=== PATIENT | male | born 1975 | race Two or more races ===

== ENCOUNTER 2022-01-13 | Outpatient (REF) | payer OTHER, SELFPAY ==
[2022-01-17 12:21] LABS: H Pylori Breath Test Positive (Negative)
== END 2022-01-13 00:01 | disposition home or self-care (01) ==
LOC: HO.LNP
PROVIDERS: Visit Provider Physician Assistant Surgical
DX: E66.01 Morbid (severe) obesity due to excess calories (principal)
CPT/HCPCS: 83013

== ENCOUNTER → 2022-01-13 13:49 | Outpatient (BNVA) | payer OTHER, SELFPAY | PROVIDERS: PCP Internal Medicine; Visit Provider Physician Assistant Surgical | DX: Z11.0 Encounter for screening for intestinal infectious diseases (principal); E66.01 Morbid (severe) obesity due to excess calories; G47.33 Obstructive sleep apnea (adult) (pediatric); E11.9 Type 2 diabetes mellitus without complications; Z68.42 Body mass index [BMI] 45.0-49.9, adult | CPT/HCPCS: 99202; 99211 ==

== ENCOUNTER 2022-01-18 17:12 | Emergency (ER) | payer OTHER, SELFPAY ==
[2022-01-18 19:31] VITALS: BP 138/78; PULSE 90; RESP 22; TEMP 36.6; O2SAT 96; BMI 45.6
--- NOTE | 2022-01-18 19:39 | PC.NURSE ---
poc 269
[2022-01-18 19:43] LABS: Glucose, Whole Blood 269 mg/dL (60-115)
[2022-01-18 19:46] VITALS: BP 147/89; PULSE 89; RESP 20; TEMP 36.6; O2SAT 94
--- NOTE | 2022-01-18 19:53 | ED_ITS ---
HPI - Burn/Smoke Inhalation General Chief complaint: Burn/Smoke Inhalation Stated complaint: oil burn on left hand Time Seen by Provider: 01/18/22 19:53 Source: patient Mode of arrival: ambulatory Limitations: no limitations History of Present Illness HPI Narrative: 46-year-old right hand dominant male presents to the ER for evaluation of a burn to the back of his left hand. He comes from home and states he was cooking when hot oil splashed up on the back of his hand. There was immediate bubbling, pain and redness. Immediately washed the hand in cold water and then applied a lotion, he does not know the name of the lotion but it is white. He reports 6/10 pain at this time. MD Complaint: burn Onset (ago): hour(s) Type of Exposure: hot liquid Smoke Inhalation: none Place: home Location - Extremities: left: hand Severity: moderate Severity scale (1-10): 6 Associated symptoms: denies other symptoms Treatment Prior to Arrival: dressings Related Data Previous Rx's Medication Instructions Recorded ketoconazole 2 % topical cream 1 appl topical DAILY 30 days #30 01/15/22 grams metformin 850 mg tablet 850 mg PO DAILY 90 days #90 tabs 01/15/22 naproxen 500 mg tablet 500 mg PO BID PRN pain 15 days #30 01/15/22 tabs sennosides 8.6 mg-docusate sodium 2 tab-cap PO BEDTIME 30 days #60 01/15/22 50 mg tablet (Senna Plus) tabs Allergies Allergy/AdvReac Type Severity Reaction Status Date / Time No Known Allergies Allergy Verified 01/15/22 15:21 Review of Systems Review of Systems: Constitutional: No Fever, No Chills Cardiovascular: No Chest Pain, No SOB Gastrointestinal: No Nausea, No Vomiting Musculoskeletal: No joint pain, No Myalgias Skin: +Skin Lesions, No rash Neuro: No Weakness, No Numbness, No Dizziness, No Headache Psych: + Anxiety/Panic, No Depression Heme/Lymph: No Bruising, No Lymphadenopathy Endocrine: No Polyuria, No Polydipsia PMFSH Past Medical History Surgical History No pertinent past surgical history Family History Family History Mother Heart problem Hypertension Father No problems noted. Daughter No problems noted. Daughter No problems noted. Social History Social History Housing: Apartment Alcohol intake: current Alcohol intake frequency: holidays/special occasions only Patient Tobacco Use Status: Former Tobacco user Quit Date: 07/21 Tobacco use type: Cigarette Advance Directives: No Advance Directives Information Provided: No service: No Current occupational status: employed Cognitive needs: No Hearing needs: No Vision needs: No Physical Exam Vital Signs: Vital Signs: Last Vital Signs Temp 97.9 F 01/18/22 19:46 Pulse 89 01/18/22 19:46 Resp 20 01/18/22 19:46 BP 147/89 H 01/18/22 19:46 Pulse Ox 94 01/18/22 19:46 O2 Del Method 01/18/22 19:46 BMI result Body Mass Index 45.6 Appearance: Alert. Oriented X3. No acute distress. HEENT: normal inspection CVS: Normal heart rate and rhythm. Pulses normal. Respiratory: No respiratory distress. Skin: Skin warm and dry. Normal skin color. Normal skin turgor. No rashes. Extremities: dorsal aspect of the left hand with 5cm area of skin soughing, skin is gallego with pink, blanchable skin at the base. large blister over the thenar eminence and small blister on the pump of the thumb. cap feill <3 sec. BSA <1 %. normal ROM of all digits, normal thumb opposition. Neuro: Oriented X 3. No motor deficit. No sensory deficit. 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 Course Course Course Narrative: 46-year-old male with history diabetes presents to the ER for evaluation of barboza to his left hand after cooking pork in hot oil when the oil splashed onto his hand. The burn is not circumferential to the hand or finger. He has full range of motion. The skin was debrided and a dressing with bacitracin, nonstick, gauze was applied. Wound care was discussed. Will refer patient to plastic surgeon as well as wound center here. Patient agrees with plan. Stable for discharge home. MDM - Burn/Smoke Inhalation Lab Data Labs: Lab Results 01/18/22 Range/Units 19:38 POC Glucose 269 H (60-115) mg/dL Procedures Burn Care/Dressing LUE: Debridement Necessary: Yes Type of Dressing: Antibiotic Ointment, Dry Sterile and Non-Stick Neurovascular Functions Intact After Dressing Application: Yes Patient Tolerated Procedure: no complications Critical Care Time Critical Care Time Critical Care Time: No Discharge Plan Discharge Clinical Impression: Second degree burn of back of left hand Patient Disposition: Home, Self-Care Instructions: Second Degree Burn (ED) Additional Instructions: Change the dressing to your hand 1-2 times per day. Recommend using bacitracin each time you change the dressing. This could be found over the counter. Use a nonstick dressing over top of the bacitracin and wrapped in gauze to keep clean and covered. Recommend following up with the wound care center as well as a plastic surgeon for follow-up. Take Motrin and Tylenol as needed for pain. Elevate your hand if you have throbbing or pain. If you develop new or worsening symptoms call 911 or come back to the ER for further evaluation. Prescriptions: No Action sennosides-docusate sodium [Senna Plus] 8.6-50 mg tablet 2 tab-cap PO BEDTIME 30 Days Qty: 60 1RF naproxen 500 mg tablet 500 mg PO BID PRN (Reason: pain) 15 Days Qty: 30 1RF ketoconazole 2 % cream 1 appl topical DAILY 30 Days Qty: 30 1RF metformin 850 mg tablet 850 mg PO DAILY 90 Days Qty: 90 1RF Referrals: [facility] [place] [facility] [Outside] (2nd degree burn on the hand) Jarrell Sol MD [Physician] - (2nd degree hand burn) Stand Alone Forms: Work/School Release Print Language: Moroccan
[2022-01-18] MEDS: Diphth,Pertus(ACell),Tet Adult 0.5 ML SYRINGE IM (20:25)
== END 2022-01-18 20:43 | disposition home or self-care (01) ==
PROVIDERS: Emergency Provider Emergency Medicine
DX: T23.262A Burn of second degree of back of left hand, initial encounter (principal); T31.0 Burns involving less than 10% of body surface; X10.2XXA Contact with fats and cooking oils, initial encounter; Y93.G3 Activity, cooking and baking; Y92.000 Kitchen of unspecified non-institutional (private) residence as the place of occurrence of the external cause; Y99.9 Unspecified external cause status
CPT/HCPCS: 16020; 82947; 90471; 90715; 99282; 99283

== ENCOUNTER → 2022-01-19 14:33 | Outpatient (REF) | payer OTHER, SELFPAY | LOC: HO.SL 14:33 | PROVIDERS: Visit Provider Physician Assistant Surgical | DX: G47.33 Obstructive sleep apnea (adult) (pediatric) (principal) | CPT/HCPCS: 95806 ==

== ENCOUNTER 2022-01-24 08:04 | Outpatient (REF) | payer OTHER, SELFPAY ==
[2022-01-24 08:28] LABS: MANUAL DIFF FLAG NO
[2022-01-24 09:14] LABS: Basophils Absolute Auto 0.1 X10*3/uL (0.0-0.2); Basophils Percent Auto 0.6 % (0-2); Eosinophils Absolute Auto 0.2 X10*3/uL (0.0-0.4); Eosinophils Percent Auto 2.5 % (0-4); Hemoglobin 14.3 g/dl (14.0-18.0); Imm Gran Abs Auto 0.08 X10*3/uL (0.00-0.03); Mean Corpuscular HGB Conc 32.5 g/dl (31.0-36.0); Mean Corpuscular Hemoglobin 28.9 pg (27.0-33.0); Mean Corpuscular Volume 89.1 fL (80.0-98.0); Mean Platelet Volume 11.7 fL (9.4-12.4); Monocytes Absolute Auto 0.6 X10*3/uL (0.1-1.2); Monocytes Percent Auto 6.7 % (2-11); Neutrophils Absolute Auto 4.4 x10*3/uL (2.0-8.3); Neutrophils Percent Auto 53.2 % (45-73); Platelet Count 259 X10*3/uL (160-400); Red Blood Count 4.94 X10*6/uL (4.60-5.80); White Blood Count 8.3 X10*3/uL (4.8-10.8)
[2022-01-24 09:51] LABS: Estimated Average Glucose 303 mg/dL; Hemoglobin A1c % 12.2 %
[2022-01-24 09:52] LABS: Alanine Aminotransferase 46 U/L (0-40); Alkaline Phosphatase 75 U/L (39-117); Anion Gap 16 (12-20); Aspartate Amino Transferase 17 U/L (5-37); Bilirubin Total 0.4 mg/dL (0.0-1.0); Blood Urea Nitrogen 10 mg/dL (9-16); C Reactive Protein 0.49 mg/dL (< or = 0.50); Calcium 8.8 mg/dL (8.4-10.2); Carbon Dioxide 23 mmol/L (22-29); Chloride 104 mmol/L (96-108); Cholesterol 249 mg/dL; Estimated Glomerular Filt Rate > 60; Glucose Random 275 mg/dL (60-115); HDL Cholesterol 41 mg/dL; Iron 61 mcg/dL (45-160); LDL Cholesterol Calculated 171 mg/dl; Percent Iron Saturation 18 % (15-50); Potassium 4.5 mmol/L (3.3-5.1); Sodium 138 mmol/L (135-145); Total Iron Binding Capacity 342 mcg/dL (228-428); Total Protein 6.9 g/dL (6.5-8.0); Triglycerides 187 mg/dL; Unsaturated Iron Binding 281 ug/dL
[2022-01-24 10:14] LABS: Folate 10.6 ng/mL (> or = 4.0); Vitamin B12 325 pg/mL (200-900)
[2022-01-24 10:16] LABS: Ferritin 211 ng/mL (20-250); Insulin 17 uU/mL (2-29); TSH reflex Free T4 1.33 uIU/mL (0.32-4.0); Vitamin D 25-OH Total 16.7 ng/mL (>30)
[2022-01-27 12:13] LABS: Calcium (PTHI) 8.9 mg/dL (8.6-10.3); PTHI 89 pg/mL (16-77)
[2022-01-27 13:33] LABS: Zinc 71 mcg/dL (60-130)
[2022-01-27 19:17] LABS: Vitamin A 41 mcg/dL (38-98)
[2022-01-30 06:10] LABS: Vitamin B1 11 nmol/L (8-30)
== END 2022-01-24 08:05 | disposition home or self-care (01) ==
LOC: HO.LAB 08:04
PROVIDERS: PCP Physician Assistant; Visit Provider Physician Assistant Surgical
DX: E66.01 Morbid (severe) obesity due to excess calories (principal)
CPT/HCPCS: 36415; 80053; 80061; 82306; 82607; 82728; 82746; 83036; 83525; 83540; 83970; 84425; 84443; 84590; 84630; 85025; 86140

== ENCOUNTER → 2022-02-13 13:08 | Outpatient (BNVA) | payer OTHER, SELFPAY | PROVIDERS: PCP Physician Assistant; Visit Provider Dietitian, Registered | DX: E66.01 Morbid (severe) obesity due to excess calories (principal) | CPT/HCPCS: 97802 ==

== ENCOUNTER 2022-02-19 10:47 | Emergency (ER) | payer OTHER, SELFPAY ==
--- NOTE | ~2022-02-19 | XR_ITS ---
EXAMINATION: XR CHEST CLINICAL INFORMATION: Cough COMPARISON: None TECHNIQUE: 2 views of the chest were obtained. FINDINGS: Allowing for hypoinflation, no significant abnormality is noted involving the heart, lungs, mediastinum, bony thorax or soft tissues. XR/XR chest 2V IMPRESSION: Unremarkable examination.
[2022-02-19 11:20] VITALS: BP 133/85; PULSE 87; RESP 18; TEMP 37.4; O2SAT 96; BMI 45.6
[2022-02-19 11:57] LABS: COVID-19 Test Positive (Negative); IDNOW Serial# 16C4AD1C
--- NOTE | 2022-02-19 14:08 | ED_ITS ---
HPI - URI/Sore Throat General Chief Complaint: Upper Respiratory Symptoms Stated Complaint: Cough Fever Time Seen by Provider: 02/19/22 13:36 Source: patient Mode of arrival: ambulatory Limitations: no limitations History of Present Illness HPI Narrative: Patient presents emergency department for evaluation of upper respiratory symptoms. He has been experiencing a cough, congestion, body aches, and low- grade fever since yesterday. Denies any known sick contacts. Denies shaking chills, chest pain, palpitations, shortness of breath, difficulty breathing, nausea, vomiting, abdominal pain, dysuria, numbness or tingling to the extremities. He does report having COVID vaccine x2, does not recall which she received. He also states that he has had COVID-19 infection in the past. Related Data Previous Rx's Medication Instructions Recorded ketoconazole 2 % topical cream 1 appl topical DAILY 30 days #30 01/15/22 grams naproxen 500 mg tablet 500 mg PO BID PRN pain 15 days #30 01/15/22 tabs sennosides 8.6 mg-docusate sodium 2 tab-cap PO BEDTIME 30 days #60 01/15/22 50 mg tablet (Senna Plus) tabs amoxicillin 500 mg capsule 1,000 mg PO Q12H 14 days #56 caps 01/19/22 clarithromycin 500 mg tablet 500 mg PO Q12H 14 days #28 tabs 01/19/22 omeprazole 20 mg capsule,delayed 20 mg PO DAILY #30 caps 01/21/22 release cholecalciferol (vitamin D3) 125 125 mcg PO DAILY #30 caps 01/26/22 mcg (5,000 unit) capsule metformin 1,000 mg tablet 1,000 mg PO BID 30 days #60 tabs 01/28/22 nirmatrelvir 300 mg (150 mg See Rx Instructions PO .COMPLEX 02/19/22 x2)-ritonavir 100 mg tablet,dose #30 ea pack(EUA) (Paxlovid) Allergies Allergy/AdvReac Type Severity Reaction Status Date / Time No Known Allergies Allergy Verified 01/15/22 15:21 Review of Systems Review of Systems: Constitutional: Positive fever. No chills. No weakness. Positive fatigue. ENT/ Mouth: No Ear Pain, positive Nasal Congestion, no sore throat, No Rhinorrhea, No Swallowing Difficulty Skin: No rash or itching. Cardiovascular: No chest pain. No palpitations. Respiratory: No shortness of breath. Positive cough. Positive sputum pr oduction. Gastrointestinal: No nausea. No vomiting. No diarrhea. No abdominal pain. Genitourinary: No burning micturition. No urinary frequency. Neurologic: No headache. No dizziness. No syncope. No numbness or tingling in the extremities. Musculoskeletal: No muscle pain. No back pain. No joint pain or stiffness. Yes all other systems are reviewed and are negative PMFSH Past Medical History Attestation statement: The following information was validated with the patient. Source: old records reviewed Surgical History No pertinent past surgical history Family History Family History Mother Heart problem Hypertension Father No problems noted. Daughter No problems noted. Daughter No problems noted. Social History Social History Housing: Apartment Alcohol intake: current Alcohol intake frequency: holidays/special occasions only Patient Tobacco Use Status: Former Tobacco user Quit Date: 07/21 Tobacco use type: Cigarette Advance Directives: Yes Advance Directives Information Provided: Yes Advance Directives on File: No service: No Current occupational status: employed Cognitive needs: No Hearing needs: No Vision needs: No Physical Exam Vital Signs: Vital Signs: Last Vital Signs Temp 99.3 F 02/19/22 11:20 Pulse 87 02/19/22 11:20 Resp 18 02/19/22 11:20 BP 133/85 02/19/22 11:20 Pulse Ox 96 02/19/22 11:20 O2 Del Method 02/19/22 11:20 BMI result Body Mass Index 45.6 Vital signs have been reviewed as normal and appeared to be correct. Blood pressure normal.? Heart rate normal.? Respiration rate normal. Temperature normal.? Oxygen saturation normal. Appearance: Alert.?Oriented to person, place and time. No acute distress.?Normal affect. Eyes: Pupils equal, round and reactive to light.? ENT: TM normal bilaterally. Pharynx normal.?? Neck: Normal inspection.? Neck supple.??No cervical adenopathy CVS: Heart sounds normal. Normal heart rate and rhythm.? Pulses normal.?? Respiratory: No respiratory distress.? Lung sounds clear to auscultation bilaterally, diminished at the bases?? Abdomen: Soft and non-tender. Normoactive bowel sounds. Skin: Skin warm and dry.? Normal skin color.? ? Extremities: No lower extremity edema.? Neuro: Moves all extremities spontaneously. Sensation intact bilaterally. No motor deficits. Ambulates with normal steady gait. Course Course Course Narrative: Patient is a 46-year-old male with a past medical history of diabetes, hypercholesterolemia, obesity, obstructive sleep apnea, presenting for evaluation of upper respiratory symptoms. COVID-19 testing is positive. At this time history and physical exam not consistent with ACS/PE. Chest x-ray reveals no acute cardiopulmonary abnormalities, not consistent with pneumonia. Well- appearing, nontoxic, afebrile, no tachycardia or tachypnea/hypoxia. Speaking clear full sentences, ambulatory with steady gait. Discussed conservative treatment including rest, hydration, Tylenol/ibuprofen as needed for fever and body aches, saline nasal spray, humidifier, [id number] cold medication. Reviewed emergency use Paxlovid, patient would like to receive prescription, basic labs obtained prior, no acute abnormalities. Advised to follow-up with primary care provider within 5-7 days. discussed worrisome signs and symptoms to return back to the emergency department. All questions were answered. Patient discharged home in stable condition. Provided with a return to work/school note. MDM - URI/Sore Throat Medical Records Attestation: I reviewed the patient's medical records. Lab Data Attestation: I reviewed the patient's lab results. Result diagrams: 02/19/22 14:20 02/19/22 14:20 Labs: Lab Results 02/19/22 02/19/22 02/19/22 Range/Units 11:26 14:20 14:20 WBC 5.4 (4.8-10.8) X10*3/uL RBC 5.35 (4.60-5.80) X10*6/uL Hgb 15.3 (14.0-18.0) g/dl Hct 47.2 (42.0-52.0) % MCV 88.2 (80.0-98.0) fL MCH 28.6 (27.0-33.0) pg MCHC 32.4 (31.0-36.0) g/dl RDW 12.2 (11.0-16.0) % Plt Count 239 (160-400) X10*3/uL MPV 10.9 (9.4-12.4) fL Immature Gran % (Auto) 0.4 (0.0-0.4) % Neut % (Auto) 62.5 (45-73) % Lymph % (Auto) 23.2 (20-40) % [place] % (Auto) 12.7 H (2-11) % Eos % (Auto) 0.6 (0-4) % Baso % (Auto) 0.6 (0-2) % Lymph # (Auto) 1.2 (1.2-4.9) X10*3/uL [place] # (Auto) 0.7 (0.1-1.2) X10*3/uL Eos # (Auto) 0.0 (0.0-0.4) X10*3/uL Baso # (Auto) 0.0 (0.0-0.2) X10*3/uL Abs Immat Gran (auto) 0.02 (0.00-0.03) X10*3/uL Absolute Neuts (auto) 3.4 (2.0-8.3) x10*3/uL Absolute Nucleated RBC 0.000 (0.0-0.012) X10*3/uL Nucleated RBC % (auto) 0.0 (0.0-0.2) /100WBC Sodium 138 (135-145) mmol/L Potassium 4.4 (3.3-5.1) mmol/L Chloride 102 (96-108) mmol/L Carbon Dioxide 26 (22-29) mmol/L Anion Gap 14 (12-20) BUN 10 (9-16) mg/dL Creatinine 1.10 (0.5-1.4) mg/dL Estim Creat Clear Calc 116.8 Estimated GFR > 60 Random Glucose 313 H (60-115) mg/dL Calcium 9.5 D (8.4-10.2) mg/dL Total Bilirubin 0.5 (0.0-1.0) mg/dL AST 34 D (5-37) U/L ALT 63 H (0-40) U/L Alkaline Phosphatase 79 (39-117) U/L Total Protein 7.7 (6.5-8.0) g/dL Albumin 4.6 (3.5-5.0) g/dL COVID-19 (ANDRY) Positive A (Negative) COVID-19 Clin Com See Note Imaging Data Chest x-ray: Radiologist's impression: XR/XR chest 2V IMPRESSION: Unremarkable examination. Discharge Plan Discharge Clinical Impression: COVID-19 Patient Disposition: Home, Self-Care Instructions: COVID-19 (Coronavirus Disease 2019) (ED) Additional Instructions: Be sure to rest, stay well hydrated. Return to emergency department with any new or worsening symptoms or concerns You can take ibuprofen 200 mg, 3 tablets (600mg) every 6-8 hours as needed for pain, in addition to Tylenol 500 mg, 2 tablets (1,000mg) every 4-6 hours as needed for pain, but not to exceed 3 doses daily (3,000mg).? You accepted treatment with Paxlovid under emergency use authorization, we discussed possible side effects, and complications. Please contact your primary care provider and arrange for a follow-up visit Prescriptions: New Paxlovid (EUA) 300 mg (150 mg x 2)-100 mg tablets,dose pack See Rx Instructions .ROUTE .COMPLEX Qty: 30 0RF Rx Instructions: take TWO 150 mg tablets of nirmatrelvir with ONE 100 mg tablet of ritonavir twice daily for 5 days No Action amoxicillin 500 mg capsule 1,000 mg PO Q12H 14 Days Qty: 56 0RF clarithromycin 500 mg tablet 500 mg PO Q12H 14 Days Qty: 28 0RF omeprazole 20 mg capsule,delayed release(DR/EC) 20 mg PO DAILY Qty: 30 0RF cholecalciferol (vitamin D3) 125 mcg (5,000 unit) capsule 125 mcg PO DAILY Qty: 30 3RF metformin 1,000 mg tablet 1,000 mg PO BID 30 Days Qty: 60 1RF sennosides-docusate sodium [Senna Plus] 8.6-50 mg tablet 2 tab-cap PO BEDTIME 30 Days Qty: 60 1RF naproxen 500 mg tablet 500 mg PO BID PRN (Reason: pain) 15 Days Qty: 30 1RF ketoconazole 2 % cream 1 appl topical DAILY 30 Days Qty: 30 1RF Stand Alone Forms: Work/School Release Interventions: ED Discharge Assessment Last Done: 02/19/22 15:28 Discharge Date/Time: 02/19/22 15:28 Print Language: S[place]an
[2022-02-19 14:25] LABS: MANUAL DIFF FLAG NO
[2022-02-19 14:27] LABS: Basophils Percent Auto 0.6 % (0-2); Eosinophils Percent Auto 0.6 % (0-4); Hematocrit 47.2 % (42.0-52.0); Hemoglobin 15.3 g/dl (14.0-18.0); Imm Gran Abs Auto 0.02 X10*3/uL (0.00-0.03); Imm Gran Pct Auto 0.4 % (0.0-0.4); Lymphocytes Absolute Auto 1.2 X10*3/uL (1.2-4.9); Lymphocytes Percent Auto 23.2 % (20-40); Mean Corpuscular HGB Conc 32.4 g/dl (31.0-36.0); Mean Corpuscular Hemoglobin 28.6 pg (27.0-33.0); Mean Corpuscular Volume 88.2 fL (80.0-98.0); Mean Platelet Volume 10.9 fL (9.4-12.4); Monocytes Absolute Auto 0.7 X10*3/uL (0.1-1.2); Monocytes Percent Auto 12.7 % (2-11); Neutrophils Absolute Auto 3.4 x10*3/uL (2.0-8.3); Neutrophils Percent Auto 62.5 % (45-73); Platelet Count 239 X10*3/uL (160-400); Red Blood Count 5.35 X10*6/uL (4.60-5.80); Red Cell Distribution Width 12.2 % (11.0-16.0); White Blood Count 5.4 X10*3/uL (4.8-10.8)
[2022-02-19 14:45] LABS: Alanine Aminotransferase 63 U/L (0-40); Albumin Level 4.6 g/dL (3.5-5.0); Alkaline Phosphatase 79 U/L (39-117); Anion Gap 14 (12-20); Aspartate Amino Transferase 34 U/L (5-37); Bilirubin Total 0.5 mg/dL (0.0-1.0); Blood Urea Nitrogen 10 mg/dL (9-16); Calcium 9.5 mg/dL (8.4-10.2); Carbon Dioxide 26 mmol/L (22-29); Chloride 102 mmol/L (96-108); Creatinine Clr Calc Pharmacy 116.8; Estimated Glomerular Filt Rate > 60; Glucose Random 313 mg/dL (60-115); Potassium 4.4 mmol/L (3.3-5.1); Sodium 138 mmol/L (135-145); Total Protein 7.7 g/dL (6.5-8.0)
== END 2022-02-19 15:28 | disposition home or self-care (01) ==
PROVIDERS: Nurse Practitioner Family; Emergency Provider Emergency Medicine; PCP Physician Assistant
DX: U07.1 COVID-19 (principal); R05.9 Cough, unspecified; R50.9 Fever, unspecified; Z79.899 Other long term (current) drug therapy; Z87.891 Personal history of nicotine dependence
CPT/HCPCS: 36415; 71046; 80053; 85025; 87635; 99282; 99283

== ENCOUNTER 2022-03-05 09:19 | Outpatient (REF) | payer OTHER, SELFPAY ==
--- NOTE | ~2022-03-05 | XR_ITS ---
EXAMINATION: XR CHEST CLINICAL INFORMATION: Morbid/severe obesity due to excess calories COMPARISON: None TECHNIQUE: 2 views of the chest were obtained. FINDINGS: No significant abnormality is noted involving the heart, lungs, mediastinum, bony thorax or soft tissues. XR/XR chest 2V IMPRESSION: Unremarkable chest exam.
--- NOTE | ~2022-03-05 | XR_ITS ---
EXAMINATION: BILATERAL HAND. CLINICAL INFORMATION: Pain. COMPARISON: None TECHNIQUE: 3 views of each hand. FINDINGS: Left hand: There is no visible acute fracture, dislocation or subluxation. No bony erosive changes seen. The joint spaces are maintained normal. The soft tissues are normal. Right hand: There is no visible acute fracture, dislocation or subluxation. No bony erosive changes or spurring. The joint space is maintained throughout the right hand. The soft tissues are normal. XR/XR hand LT 2V IMPRESSION: Unremarkable bilateral hand exam.
--- NOTE | ~2022-03-05 | XR_ITS ---
EXAMINATION: BILATERAL HAND. CLINICAL INFORMATION: Pain. COMPARISON: None TECHNIQUE: 3 views of each hand. FINDINGS: Left hand: There is no visible acute fracture, dislocation or subluxation. No bony erosive changes seen. The joint spaces are maintained normal. The soft tissues are normal. Right hand: There is no visible acute fracture, dislocation or subluxation. No bony erosive changes or spurring. The joint space is maintained throughout the right hand. The soft tissues are normal. XR/XR hand RT 2V IMPRESSION: Unremarkable bilateral hand exam.
== END 2022-03-05 09:20 | disposition home or self-care (01) ==
LOC: HO.US 09:19
PROVIDERS: Visit Provider Physician Assistant Surgical
DX: Z01.818 Encounter for other preprocedural examination (principal); E66.01 Morbid (severe) obesity due to excess calories; M79.641 Pain in right hand; M79.642 Pain in left hand
CPT/HCPCS: 71046; 73120

== ENCOUNTER → 2022-04-29 10:05 | Outpatient (BNVA) | payer OTHER, SELFPAY | PROVIDERS: PCP Physician Assistant; Visit Provider Urology | DX: N48.1 Balanitis (principal); E11.65 Type 2 diabetes mellitus with hyperglycemia | CPT/HCPCS: 99202 ==

== ENCOUNTER 2022-06-01 | Outpatient (REF) | payer OTHER, SELFPAY | END 2022-06-01 00:01 | disposition home or self-care (01) | LOC: HO.LNP | PROVIDERS: Visit Provider Physician Assistant | DX: Z13.89 Encounter for screening for other disorder (principal) ==

== ENCOUNTER → 2022-09-02 09:45 | Outpatient (BNVA) | payer OTHER, SELFPAY | PROVIDERS: PCP Physician Assistant; Visit Provider Orthopaedic Surgery | DX: M65.332 Trigger finger, left middle finger (principal); R20.0 Anesthesia of skin; R20.2 Paresthesia of skin | CPT/HCPCS: 20600; 99202; J1100 ==

== ENCOUNTER → 2022-09-03 09:19 | Outpatient (BNVA) | payer OTHER, SELFPAY | PROVIDERS: PCP Physician Assistant; Visit Provider Dietitian, Registered | DX: E11.65 Type 2 diabetes mellitus with hyperglycemia (principal) | CPT/HCPCS: 97802 ==

== ENCOUNTER 2022-11-05 07:55 | Outpatient (REF) | payer OTHER, SELFPAY ==
--- NOTE | 2022-11-05 08:23 | EMG_ITS ---
Left median and ulnar motor and sensory studies were performed. Left radial sensory studies were performed and paraspinal muscles were tested with some limb muscles. IMPRESSION: 1. Chronic left mid cervical radiculopathy. 2. Mild to moderate left median neuropathy across carpal tunnel. MD LAILA Willis/KAHLIL / [id number]
== END 2022-11-05 07:56 | disposition home or self-care (01) ==
LOC: HO.NEURO 07:55
PROVIDERS: PCP Physician Assistant; Visit Provider Orthopaedic Surgery
DX: R20.0 Anesthesia of skin (principal); R20.2 Paresthesia of skin
CPT/HCPCS: 95886; 95909

== ENCOUNTER 2022-11-23 15:04 | Emergency (ER) | payer OTHER, SELFPAY ==
--- NOTE | ~2022-11-23 | XR_ITS ---
EXAMINATION: XR SHOULDER, LEFT CLINICAL INFORMATION: Pain with limited range of motion COMPARISON: None available. TECHNIQUE: Four views of the left shoulder. FINDINGS: No fracture or dislocation. Prominent hypertrophic degenerative change of the acromioclavicular joint. The glenohumeral joint is well aligned with joint space maintained. The visualized lung is clear. The visualized ribs are intact. XR/XR shoulder LT min 2V IMPRESSION: Prominent hypertrophic degenerative change of the acromioclavicular joint.
[2022-11-23 15:36] VITALS: BP 142/83; PULSE 77; RESP 16; TEMP 36.9; O2SAT 96; BMI 44.4
--- NOTE | 2022-11-23 15:36 | ED.EXTPRO ---
HPI - Extremity Problem General Chief complaint: Extremity Problem Stated complaint: left arm pain Time Seen by Provider: 11/23/22 16:03 Source: patient Mode of arrival: ambulatory Limitations: no limitations History of Present Illness HPI Narrative: Patient is a 47 year old assigned male at with a history of HTN presenting to the emergency department today with left shoulder pain. Patient states that over the last month he has had left shoulder pain. Patient denies any dizziness, lightheadedness, abdominal pain, nausea, vomiting, fever, chills, blurry vision, double vision, loss of vision, chest pain, difficulty breathing, shortness of breath, back pain, night sweats, pain with urination, increased urinary frequency, increased urinary urgency, blood in his urine or stool, syncope or a near syncopal episode, recent trauma or falls, bowel incontinence, bladder incontinence, bowel retention, bladder retention, or any other complaints at this time. MD Complaint: extremity pain Onset (ago): month(s) (1) Pain Consistency: intermittent Location: left and upper extremity Severity scale (1-10): 4 Quality: aching and dull Radiation: none Relieving factors: immobilization Exacerbating factors: range of motion Associated symptoms: denies other symptoms Related Data Home Medications Medication Instructions Recorded Confirmed omeprazole 20 mg capsule,delayed 20 mg PO DAILY 04/27/22 05/18/22 release Previous Rx's Medication Instructions Recorded ketoconazole 2 % topical cream 1 appl topical DAILY 30 days #30 01/15/22 grams cholecalciferol (vitamin D3) 125 125 mcg PO DAILY #30 caps 01/26/22 mcg (5,000 unit) capsule clotrimazole-betamethasone 1 1 appl topical BID 4 weeks #45 04/29/22 %-0.05 % topical cream grams sennosides 8.6 mg-docusate sodium 2 tab-cap PO BEDTIME 30 days #60 07/03/22 50 mg tablet (Senna Plus) tabs meloxicam 15 mg tablet 15 mg PO DAILY 30 days #30 tabs 07/24/22 insulin glargine 100 unit/mL (3 15 unit (0.15 mL) subcut QPM 30 08/27/22 mL) subcutaneous pen ( days #15 mL Solostar U-100 Insulin) pen needle, diabetic 32 gauge x #50 ea 10/11/22 (BD Ultra-Fine Carin Pen Needle) metformin 1,000 mg tablet 1,000 mg PO BID 30 days #60 tabs 11/12/22 lisinopril 5 mg tablet 5 mg PO DAILY 90 days #90 tabs 11/23/22 Allergies Allergy/AdvReac Type Severity Reaction Status Date / Time No Known Allergies Allergy Verified 09/02/22 10:07 Review of Systems Constitutional: Constitutional: Reports no additional constitutional complaints, Denies chills, Denies fever(s) and Denies night sweats Eyes: Eyes: Reports no additional eye complaints, Denies blurry vision, Denies change in vision, Denies diplopia, Denies eye discharge, Denies loss of vision and Denies eye pain ENT: Denies dizziness Cardiovascular: Cardiovascular: Reports no additional cardiovascular complaints, Denies chest pain, Denies lightheadedness, Denies Loss of Consciousness and Denies dyspnea Respiratory: Respiratory: Reports no additional respiratory complaints and Denies dyspnea Gastrointestinal: Gastrointestinal: Reports no additional gastrointestinal complaints, Denies abdominal pain, Denies melena, Denies hematochezia, Denies change in bowel habits and Denies change in stool character Genitourinary: Genitourinary: Reports no additional male genitourinary complaints, Denies hematuria, Denies oliguria, Denies difficulty urinating, Denies dysuria, Denies urinary frequency, Denies urinary hesitancy, Denies urinary incontinence and Denies urinary urgency Musculoskeletal: Musculoskeletal: Reports no additional musculoskeletal complaints, Denies numbness and Denies tingling Comments: left shoulder pain Neurologic: Denies dizziness, Denies loss of vision, Denies numbness and Denies tingling Psychiatric: Psychiatric: Reports no additional psychiatric complaints Endocrine: Endocrine: Reports no additional endocrine complaints Hematologic/Lymphatic: Hematologic/Lymphatic: Reports no additional hematologic/lymphatic complaints Allergic/Immunologic: Allergic/Immunologic: Reports no additional allergic/immunologic complaints [facility] Past Medical History Attestation statement: The following information was validated with the patient. Source: old records reviewed and nursing notes reviewed Medical History Acid reflux Hx of diabetes mellitus Surgical History No pertinent past surgical history Family History Family History Mother Heart problem Hypertension Father No problems noted. Daughter No problems noted. Daughter No problems noted. 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 Cognitive needs: No Hearing needs: No Vision needs: No Physical Exam Vital Signs: Vital Signs: Last Vital Signs Temp 98.4 F 11/23/22 15:36 Pulse 77 11/23/22 15:36 Resp 16 11/23/22 15:36 BP 142/83 H 11/23/22 15:36 Pulse Ox 96 11/23/22 15:36 O2 Del Method Room Air 11/23/22 15:36 BMI result Body Mass Index 44.4 Const: General: cooperative, no acute distress, alert and awake Nutritional Appearance: well nourished Orientation/consciousness: patient oriented x3 Limitations: no limitations HEENT: Head: Yes normal to inspection and Yes atraumatic Ears: hearing grossly normal bilaterally and external ears normal General nose exam: Normal external nose present, no nasal discharge noted and no epistaxis Face and sinus: Yes normal facial exam, No abrasion and No laceration Mouth: Normal oral and palatal mucosa present, no drooling and no muffled voice Eyes: General: appearance normal, both eyes and all related structures Periorbital: periorbital findings normal Eyelids: Yes eyelids normal Conjunctivae: conjunctivae normal Pupils: Equal, round and reactive pupils present EOM: EOMs intact bilaterally Neck: Neck: Yes normal visual inspection, Yes full ROM and Yes no lymphadenopathy Chest: Chest palpation & inspection: normal inspection of the chest Resp: Effort & Inspection: normal respiratory effort and able to speak in complete sentences GI: Inspection: Yes normal to inspection Neuro: General: patient oriented x3 and moves all extremities Cranial nerves: Yes Equal, round and reactive pupils present Cognition (Neuro): normal cognition Motor exam (neuro): 5/5 motor strength present throughout Sensory Exam: Normal double simultaneous stimulation for sensation Coordination: [id number] test normal Extrem: Other: pain with palpation of the left AC joint General: Yes normal to inspection, Yes full ROM and Yes capillary refill normal Psych: Appearance: grossly normal Mental Status: mental status grossly normal Affect: normal affect Attitude: cooperative Thought process: Normal thought process present Thought content: Normal thought content present Insight: Good insight present (Psych) Course Course Course Narrative: RME - 47 yo Mosotho speaking male with history of obesity, DM, HLD, trigger finger left middle finger s/p steroid injection by Dr. Marie in August who presents to the ER for evaluation of new, nontraumatic left shoulder pain for the last 1 month with limited ROM. Causing difficulty sleeping. Questioning if it is related to the nerve issues of the finger. Has nerve conduction study November 05 showin. Chronic left mid cervical radiculopathy. 2. Mild to moderate left median neuropathy across carpal tunnel. Has appointment December 15 w/ Dr. Marie for follow up. Plan: XR shoulder Medical Decision Making Medical Decision Making [facility] Narrative: Patient is a 47 year old assigned male at with a history of HTN presenting to the emergency department today with left shoulder pain. Patient's physical exam showed pain with palpation of the left AC joint. Patient's left shoulder x-ray showed prominent hyperterophic degenerative change of the AC joint. I explained my physical exam findings as well as all test results to the patient. I answered all questions asked by the patient. Patient requested to have his arm in a sling. Patient's left arm was placed in a sling, without incident. Patient's PMS was intact prior to and after sling placement. I stressed the importance of the patient continuing to regularly exercise his left shoulder to avoid a frozen shoulder. I stressed the importance of the patient taking his medication as prescribed. I stressed the importance of the patient following up with his primary care provider and an orthopedic provider. I stressed the importance of the patient returning to the emergency department immediately if his symptoms were to worsen or if he were to develop any dizziness, shortness of breath, difficulty breathing, chest pain, blurry vision, loss of vision, nausea, vomiting, abdominal pain, fever, chills, back pain, or any other complaints. Patient verbalized agreement and understanding with this treatment plan and discharge. Differential Diagnosis Differential Diagnoses: The differential diagnosis associated with the presentation includes Left shoulder pain Rotator cuff injury AC joint sprain AC joint pain AC joint strain Independent Interpretation I performed an independent interpretation of an: Plain X-Ray Interpretation: My interpretation is in agreement with the radiologist's impression of this imaging study. EXAMINATION: XR SHOULDER, LEFT CLINICAL INFORMATION: Pain with limited range of motion? COMPARISON: None available.? TECHNIQUE: Four views of the left shoulder. FINDINGS: No fracture or dislocation. Prominent hypertrophic degenerative change of the acromioclavicular joint. The glenohumeral joint is well aligned with joint space maintained. The visualized lung is clear. The visualized ribs are intact.? XR/XR shoulder LT min 2V IMPRESSION: Prominent hypertrophic degenerative change of the acromioclavicular joint. Dictated By: Tavares Romero MD Signed By: Electronically signed by Tavares Romero MD 11/23/22 [id number] Radiology Impression Discussion of test interpretation with radiology: I have reviewed the radiologist's reading. Chronic Conditions Patient?s care impacted by: Hypertension Procedures Orthopedic Splinting/Casting Injury #1: Side: left Upper Extremity Injury Location: shoulder Upper Extremity Immobilizer: sling/shoulder immobilizer Discharge Plan Discharge Clinical Impression: Acromioclavicular (joint) (ligament) sprain Patient Disposition: Home, Self-Care Instructions: Shoulder Sprain (ED) Additional Instructions: Follow up with your primary care provider and an orthopedic provider. Return to the emergency department immediately if your symptoms worsen or if you develop any dizziness, shortness of breath, difficulty breathing, chest pain, blurry vision, loss of vision, nausea, vomiting, abdominal pain, fever, chills, back pain, or any other complaints. aga un seguimiento con mcneal proveedor de atenci?n primaria y un proveedor ortop?dico. Regrese al departamento de emergencias de inmediato si nyla s?ntomas empeoran o si presenta mareos, falta de aire, dificultad para respirar, dolor de pecho, visi?n borrosa, p?rdida de la visi?n, n?useas, v?mitos, dolor abdominal, fiebre, escalofr?os, dolor de espalda o cualquier otras quejas. Prescriptions: No Action cholecalciferol (vitamin D3) 125 mcg (5,000 unit) capsule 125 mcg PO DAILY Qty: 30 3RF sennosides-docusate sodium [Senna Plus] 8.6-50 mg tablet 2 tab-cap PO BEDTIME 30 Days Qty: 60 1RF meloxicam 15 mg tablet 15 mg PO DAILY 30 Days Qty: 30 1RF insulin glargine [Lantus Solostar U-100 Insulin] 100 unit/mL (3 mL) insulin pen 15 unit subcut QPM 30 Days Qty: 15 0RF (DME) pen needle, diabetic [BD Ultra-Fine Carin Pen Needle] 32 gauge x 5/32 needle See Rx Instructions .ROUTE .MEDSUPPLY Qty: 50 2RF Rx Instructions: As directed metformin 1,000 mg tablet 1,000 mg PO BID 30 Days Qty: 60 3RF lisinopril 5 mg tablet 5 mg PO DAILY 90 Days Qty: 90 1RF ketoconazole 2 % cream 1 appl topical DAILY 30 Days Qty: 30 1RF omeprazole 20 mg capsule,delayed release(DR/EC) 20 mg PO DAILY clotrimazole-betamethasone 1-0.05 % cream 1 appl topical BID 28 Days Qty: 45 0RF Rx Instructions: Apply thin coat 2 times per day Referrals: [facility] [Provider Group] (Call to establish and follow up with an orthopedic provider. Llame para establecer y hacer un seguimiento con un proveedor ortop?dico.) Lee Díaz PA-C [Primary Care Provider] - Print Language: Mosotho
== END 2022-11-23 18:04 | disposition home or self-care (01) ==
PROVIDERS: Emergency Provider Emergency Medicine; PCP Physician Assistant
DX: S43.52XA Sprain of left acromioclavicular joint, initial encounter (principal); X58.XXXA Exposure to other specified factors, initial encounter; Y93.9 Activity, unspecified; Y92.9 Unspecified place or not applicable; Y99.9 Unspecified external cause status
CPT/HCPCS: 73030; 99282; 99283

== ENCOUNTER 2022-12-15 09:23 | Outpatient (AMB) | payer OTHER, SELFPAY ==
--- NOTE | 2022-12-15 09:33 | A.OFFVIS_ITS ---
Intake Vital Signs 12/15/22 09:48 Height 5 ft 9 in Weight 301 lb BMI 44.4 Intake Visit Reasons: OV- LT MF s/p inj 08/2022/ EMG review Intake Note: Alfredito 47 yr old male who is right hand dominant presents today for his left hand middle finger trigger s/p injection from 09/02/22 and also for his EMG review. States injection did not help at all and is ready to discuss surgery for trigger release and CTS. Patient is diabetic, last A1C from 05/18/22 was 10.3. Patient is aware his sugars levels need to be better controlled. Allergies No Known Allergies Allergy (Verified 12/15/22 09:47) HPI OV- LT MF s/p inj 08/2022/ EMG review HPI Details Alfredito is a 47 year old right hand dominant Urdu speaking man, here with his , presenting S/P left middle trigger finger injection, and for a NCS review. He was last seen, and injected, on 09/02/22, which he says did not help him at all He continues to complain of painful locking and catching of the left middle finger, as well as numbness and tingling in his left ring and middle fingers every morning. 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 He is a Diabetic and says his last HgA1c was 10.3 on 05/18/22. He has been tryin [employer] to work on managing his sugars better. [facility] Medical History Acid reflux Hx of diabetes mellitus Surgical History No pertinent past surgical history Family History Mother Heart problem Hypertension Father No problems noted. Daughter No problems noted. Daughter No problems noted. 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 Normal sensation to the small finger No thenar or intrinsic wasting Good APB muscle belly firing and good finger cross Vascular: Cap refill brisk ROM: He can make a fist and extend all his digits Visible and palpable locking and catching of the middle finger Tender over the a1 tiffanie of the middle finger Nerve Conduction Study: IMPRESSION:? 1. Chronic left mid cervical radiculopathy. 2. Mild to moderate left median neuropathy across carpal tunnel. Juancarlos Edmonds MD 11/05/2022 Psych Appearance: grossly normal Affect: normal affect Attitude: cooperative Assessment & Plan Assessment & Plan (1) Trigger finger, left middle finger: Code(s): M65.332 - Trigger finger, left middle finger (2) Carpal tunnel syndrome of left wrist: Code(s): G56.02 - Carpal tunnel syndrome, left upper limb (3) Left cervical radiculopathy: Code(s): M54.12 - Radiculopathy, cervical region Plan Assessment & Plan: 1. Left middle trigger finger, S/P injection Date of Injection: 09/02/22 The patient continues to have locking and catching of the middle finger 2. Left carpal tunnel syndrome, mild-moderate With dense numbness, including the ring finger. Normal sensation to the small finger Possible double crush syndrome I educated him about these conditions I discussed treatment options The patient would like to proceed with surgery The risks and benefits of operative treatment were discussed with the patient and the patient wishes to proceed with surgery. These risks include, but are not limited to risk of damage to blood vessels, nerves, tendons, infection, recurrence, incomplete relief of preoperative symptoms, persistent pain, possible need for further surgery and the risks associated with regional blocks and anesthesia. The plan is to take the patient to the operating room sometime in the next few weeks for the following procedures: 1. Left carpal tunnel release, under local 2. Left middle finger trigger release, under local All of the preoperative paperwork including the consent was filled out today. All the patient's questions were answered. The patient understands that they will be contacted by our clinic scheduler soon to schedule this procedure He denies blood thinners, asthma, heart, lung, kidney issues He is a Diabetic and says his most recent HgA1c was 10.3 on 05/18/22. He will need an updated HgA1c to be <8.0% before we can proceed with surgery. 3. Left-sided mid cervical radiculopathy Seen on NCS I referred him to our colleagues in Pain Management for further assessment. Scribed for Hailee Marie MD by Jamie Reveles, center medical and lab director, on 12/15/22 at 9:55 AM, EST. Orders: Referrals Pain Management Referral M54.12 - Radiculopathy, cervical region Coding Level of Care Code Est Pt Level 4 (72397) Diagnoses Trigger finger, left middle finger M65.332 Carpal tunnel syndrome of left wrist G56.02 Left cervical radiculopathy M54.12
[2022-12-15 09:48] VITALS: BMI 44.4
== END 2022-12-15 10:03 | disposition home or self-care (01) ==
PROVIDERS: PCP Physician Assistant; Visit Provider Orthopaedic Surgery
DX: M65.332 Trigger finger, left middle finger (principal); G56.02 Carpal tunnel syndrome, left upper limb; M54.12 Radiculopathy, cervical region
CPT/HCPCS: 99214

== ENCOUNTER → 2022-12-15 09:23 | Outpatient (BNVA) | payer OTHER, SELFPAY | PROVIDERS: PCP Physician Assistant; Visit Provider Orthopaedic Surgery | DX: M65.332 Trigger finger, left middle finger (principal); M54.12 Radiculopathy, cervical region; G56.02 Carpal tunnel syndrome, left upper limb | CPT/HCPCS: 99212 ==

== ENCOUNTER 2022-12-16 10:47 | Outpatient (AMB) | payer OTHER, SELFPAY ==
--- NOTE | 2022-12-16 10:57 | A.OFFVIS_ITS ---
Intake Vital Signs 12/16/22 11:04 Height 5 ft 9 in Weight 308 lb 8 oz BMI 45.6 BP 135/77 Blood Pressure Location Rt brachial Position Sitting Pulse 73 Pulse Source Pulse Oximeter Pulse Oximetry (%) 95 Oxygen Delivery Method Room Air Intake Visit Reasons: CERVICAL RADICULOPATHY Intake Note: Pt here as a [employer], referral from ortho for L sided neck/shoulder pain x 6 months. Pain rating today 4-5/10 on pain scale. Pt states no PT, NSAIDS, or muscle re laxers taken Allergies No Known Allergies Allergy (Verified 12/16/22 11:04) Medication List - Last Reconciled 12/16/22 by Alem Gallagher, RN cholecalciferol (vitamin D3) 125 mcg PO DAILY clotrimazole-betamethasone 1-0.05 % 1 appl topical BID 4 weeks insulin glargine (Lantus Solostar U-100 Insulin) 15 units (0.15 mL) subcut QPM 30 days ketoconazole 2% 1 appl topical DAILY 30 days lisinopril 5 mg PO DAILY 90 days meloxicam 15 mg PO DAILY 30 days metformin 1,000 mg PO BID 30 days omeprazole 20 mg PO DAILY pen needle, diabetic (BD Ultra-Fine Carin Pen Needle) As directed sennosides-docusate sodium 8.6-50 mg (Senna Plus) 2 tab-caps (2 x 8.6-50 mg) PO BEDTIME 30 days HPI HPI Comments History of Present Illness Details Alfredito is a very pleasant 47-year-old male who presents to the office today for evaluation and management of left upper back pain. He was referred here after recent visit with Orthopedics where nerve conduction study was notable for chronic left mid cervical radiculopathy. Today patient reports that he is experiencing left shoulder, neck and upper back pain for the last 2 months. He states that he injured his shoulder at work by lifting without using proper body mechanics. He states that he tried to continue working despite having shoulder pain which then caused the left-sided neck and left upper back pain. Patient also reports pain in his left elbow and left hand, he is currently being treated by Dr. Marie in Orthopedics for pending carpal tunnel and trigger finger release surgeries. Today patient's main concern is his left upper back pain that he reports is constant worse at night and when he 1st wakes up in the morning. Pain currently is an 8/10 worse with movements and palpation. He states the pain is negatively impacting his ability to sleep, function normally and perform activities of daily living. Patient denies radiation or shooting pain down the arm. He denies left upper extremity weakness. Patient has not tried any tfzd-gjp-ypryehz medications including Tylenol or N SAIDs, he has not attended physical therapy, chiropractor, acupuncture, massage and has never had surgery or injections on his neck or back. Patient's past medical history is significant for diabetes with his most recent A1c 10.3 in April of 2022. He has been taking his insulin daily and his me tformin twice daily as prescribed routinely for the last 3 months. Prior to this he states that his blood sugar readings were in the 500s. Since being compliant with his medications his blood sugars have improved this morning his fasting glucose was 210. He has a scheduled follow-up appointment with his primary care doctor at the end of this month for recheck. [facility] Medical History Acid reflux Hx of diabetes mellitus Surgical History No pertinent past surgical history Family History Mother Heart problem Hypertension Father No problems noted. Daughter No problems noted. Daughter No problems noted. 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 Answers questions appropriately. Fully engaged in examination. Skin: warm, dry, intact without visible rashes or lesions. HEENT: Normocephalic. Conjuntivae clear without exudate. Sclera non-icteric. Hearing intact. Cardiac: External chest normal in appearance. Respiratory: No signs of trauma. No signs of respiratory distress. No cough, audible wheezing or stridor. Abdomen: without gross distension. MS: No obvious swelling or deformities. Able to transition from sit to stand unassisted. Ambulates with bilaterally normal heel strike and toe off Neurological: Oriented to person, place, time and situation. Thought process in tact. No gait abnormalities appreciated. Psychiatric: Appropriate mood and affect. Good judgment and insight. Back/Spine/Pelvis Other: Cervical Spine: Visible inspection without gross abnormality Moderate tenderness throughout right upper and middle trapezius muscles with noted tight bands Tender to palpation over paraspinal muscles and midline cervical vertebrae Full active ROM in all planes Spurling compression test negative. Elvey's tension test negative bilaterally Lhermitte's test negative. BUE strength 5/5 DTR symmetrical and intact bilaterally.? 2+ radial pulses.? Results Reviewed Results Reviewed: Assessment & Plan Assessment & Plan (1) Left cervical radiculopathy: Code(s): M54.12 - Radiculopathy, cervical region (2) Trapezius muscle strain: Code(s): S46.819A - Strain of other muscles, fascia and tendons at shoulder and upper arm level, unspecified arm, initial encounter Plan Alfredito is a very pleasant 47-year-old male who presented to the office today for evaluation and management of left mid cervical radiculopathy that was diagnosed on recent EMG. History physical exam and provocative testing today most consistent with left upper and middle trapezius strain being his current primary pain generator. Patient with some tenderness over cervical midline vertebrae imaging ordered, cervical spine with flexion extension. Patient has not trialed conservative treatment therefore we will initiate physical therapy eval and treat, order has been placed. Prescriptions for tizanidine 2 mg p.o. t.i.d. as needed for muscle spasticity, patient instructed on use no driving no drinking alcohol and no operating heavy machinery while taking. Patient reports he has not tried any nonsteroidal anti-inflammatory medication, prescription for diclofenac sodium 1% topical apply to affected area 4 times daily as needed for pain. Patient instructed on use. Avoid other prescription and sujf-ukw-nbykzga anti-inflammatory medication while using the diclofenac topical cream. Patient has recently been working to better control his blood sugars. He reports the last 3 months he has been taking his insulin at bedtime and metformin twice daily as prescribed. He is checking his sugars routinely and has a follow-up planned with his primary care doctor at the end of this month. Patient strongly advised to ensure he sees his primary care doctor as planned so he can have repeat blood work. For future interventional management options to be offered including steroid injections or neuromodulation his blood sugars w ould need to be better managed with A1c in acceptable range. All questions and concerns have been answered and patient agrees with the plan. Patient will follow up in the office after physical therapy, sooner if needed. Orders: Orders PT Evaluation and Treatment Today S46.813D - Strain of other muscles, fascia and tendons at shoulder and upper arm level, unspecified arm, initial encounter XR cervical spine w flex/ext Today M54.12 - Radiculopathy, cervical region Medications: New diclofenac sodium 1% (Arthritis Pain (diclofenac)) apply to right upper back as needed. do not take with meloxicam or other NSAIDS 4 grams topical QID 100 grams 0RF pain tizanidine do not drive, drink alcohol or operate heavy machinery while taking this medication 2 mg PO TID PRN 60 tabs 1RF muscle spasticity Coding Level of Care Code New Pt Level 4 (28011) Diagnoses Left cervical radiculopathy M54.12 Trapezius muscle strain S46.810C
[2022-12-16 11:04] VITALS: BP 135/77; PULSE 73; O2SAT 95; BMI 45.6
== END 2022-12-16 11:39 | disposition home or self-care (01) ==
PROVIDERS: PCP Physician Assistant; Visit Provider Registered Nurse Emergency
DX: M54.12 Radiculopathy, cervical region (principal); S46.819A Strain of other muscles, fascia and tendons at shoulder and upper arm level, unspecified arm, initial encounter
CPT/HCPCS: 99204

== ENCOUNTER → 2022-12-16 10:47 | Outpatient (BNVA) | payer OTHER, SELFPAY | PROVIDERS: PCP Physician Assistant; Visit Provider Registered Nurse Emergency | DX: M54.12 Radiculopathy, cervical region (principal); S46.812A Strain of other muscles, fascia and tendons at shoulder and upper arm level, left arm, initial encounter; X50.0XXA Overexertion from strenuous movement or load, initial encounter; Y93.9 Activity, unspecified; Y92.69 Other specified industrial and construction area as the place of occurrence of the external cause; Y99.8 Other external cause status | CPT/HCPCS: 99202 ==

== ENCOUNTER 2022-12-31 12:41 | Outpatient (AMB) | payer OTHER, SELFPAY ==
[2022-12-31 12:46] VITALS: BMI 45.5
--- NOTE | 2022-12-31 12:46 | MHC.OFFVIS ---
Intake Vital Signs 12/31/22 12:46 Height 5 ft 9 in Weight 308 lb BMI 45.5 Handedness Right Intake Visit Reasons: Newprob-Left shoulder pain Intake Note: Alfredito is a 47 year old right hand dominant male who presents today partner for a evaluation for his right shoulder pain. Patient reports ongoing pain for 3 months, he think it might be from lifting boxes at work. He states that his pain is worse in the morning. Patient reports his ROM limited. Pain is in the anterior aspect of the shoulder. He reports that his pain is worse when getting dressed. Allergies No Known Allergies Allergy (Verified 12/16/22 11:04) HPI Newprob-Left shoulder pain HPI Details 47-year-old right hand dominant male who presents in the office today for an evaluation of left shoulder pain. The patient reports chronic pain for 3 months. He states it might be from lifting boxes at work. He claims his pain is worse in the morning. He reports limited ROM. He states the pain is on the anterior aspect of the left shoulder, with an increase in pain when getting dressed. [facility] Medical History Acid reflux Hx of diabetes mellitus Surgical History No pertinent past surgical history Family History Mother Heart problem Hypertension Father No problems noted. Daughter No problems noted. Daughter No problems noted. 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 No ecchymosis, erythema, or edema. Full shoulder ROM in all planes. Positive cross-body reach. 4/5 strength with empty can. Negative drop arm. NVI. Assessment & Plan Assessment & Plan (1) Arthritis of left acromioclavicular joint: Code(s): M19.012 - Primary osteoarthritis, left shoulder (2) Painful arc syndrome of left shoulder: Code(s): M75.102 - Unspecified rotator cuff tear or rupture of left shoulder, not specified as traumatic (3) Diabetes: Code(s): E11.9 - Type 2 diabetes mellitus without complications Qualifiers: Diabetes mellitus complication status: with hyperglycemia Diabetes mellitus halfway insulin use: without training representative use Diabetes mellitus type: type 2 Qualified Code(s): E11.65 - Type 2 diabetes mellitus with hyperglycemia Plan Mr. Edmar Steele is a 47-year-old right hand dominant male who presents in the office today for an evaluation of left shoulder pain. The patient reports chronic pain for 3 months. He states it might be from lifting boxes at work. He claims his pain is worse in the morning. He reports limited ROM. He states the pain is on the anterior aspect of the left shoulder, with an increase in pain when getting dressed. I discussed the role of cortisone injections. However the patient?s glucose this morning was 240, therefore, we have agreed to defer at this time. He will be referred to physical therapy to work on ROM and strengthening. Follow up be in 6 weeks, or sooner if needed. X-rays of the left shoulder, obtained on 11/23/2022, revealed: Prominent hypertrophic degenerative change of the acromioclavicular joint. Patient Instructions: Scribed for Shoshana Vargas PA-C by Chiqui Villegas medical office representative, on 12/31/2022 at 1:06 pm, EST. Coding Level of Care Code New Pt Level 4 (85797) Diagnoses Arthritis of left acromioclavicular joint M19.012 Painful arc syndrome of left shoulder M75.102 Diabetes E11.65 Diabetes mellitus complication status: with hyperglycemia Diabetes mellitus halfway insulin use: without halfway use Diabetes mellitus type: type 2
== END 2022-12-31 13:53 | disposition home or self-care (01) ==
PROVIDERS: PCP Physician Assistant; Visit Provider Physician Assistant
DX: M19.012 Primary osteoarthritis, left shoulder (principal)
CPT/HCPCS: 99213

== ENCOUNTER → 2022-12-31 12:41 | Outpatient (BNVA) | payer OTHER, SELFPAY | PROVIDERS: PCP Physician Assistant; Visit Provider Physician Assistant ==

== ENCOUNTER → 2023-01-25 05:57 | Outpatient (REF) | payer OTHER, SELFPAY ==
--- NOTE | 2023-01-25 06:18 | ECG_ITS ---
Test Reason : htn Blood Pressure : / mmHG Vent. Rate : 068 BPM Atrial Rate : 068 BPM P-R Int : 174 ms QRS Dur : 106 ms QT Int : 378 ms P-R-T Axes : 022 -19 001 degrees QTc Int : 401 ms Normal sinus rhythm Minimal voltage criteria for LVH, may be normal variant ( R in aVL ) Borderline ECG No previous ECGs available Referred By: Lee Díaz Electronically Signed By:GM WADE
[2023-01-25 08:23] LABS: Hematocrit 44.1 % (42.0-52.0); Hemoglobin 14.1 g/dl (14.0-18.0); Mean Corpuscular Volume 90.6 fL (80.0-98.0); Mean Platelet Volume 11.8 fL (9.4-12.4); Platelet Count 280 X10*3/uL (160-400); Red Blood Count 4.87 X10*6/uL (4.60-5.80); White Blood Count 9.1 X10*3/uL (4.8-10.8)
[2023-01-25 08:25] LABS: Estimated Average Glucose 269 mg/dL
[2023-01-25 08:51] LABS: Alanine Aminotransferase 39 U/L (0-40); Albumin Level 4.1 g/dL (3.5-5.0); Alkaline Phosphatase 67 U/L (39-117); Anion Gap 12 (12-20); Aspartate Amino Transferase 17 U/L (5-37); Bilirubin Total 0.5 mg/dL (0.0-1.0); Blood Urea Nitrogen 17 mg/dL (9-16); Calcium 9.3 mg/dL (8.4-10.2); Carbon Dioxide 24 mmol/L (22-29); Chloride 105 mmol/L (96-108); Cholesterol 278 mg/dL (<200); Estimated Glomerular Filt Rate > 60; Glucose Fasting 248 mg/dL (60-99); HDL Cholesterol 42 mg/dL (>40); LDL Cholesterol Calculated 183 mg/dL (<100); Potassium 4.1 mmol/L (3.3-5.1); Sodium 137 mmol/L (135-145); Total Protein 7.3 g/dL (6.5-8.0); Triglycerides 265 mg/dL (<150)
== END ==
LOC: HO.CARD 05:57
PROVIDERS: PCP Physician Assistant; Visit Provider Physician Assistant
DX: Z01.818 Encounter for other preprocedural examination (principal); E11.65 Type 2 diabetes mellitus with hyperglycemia; G47.33 Obstructive sleep apnea (adult) (pediatric); I10 Essential (primary) hypertension; E78.00 Pure hypercholesterolemia, unspecified
CPT/HCPCS: 36415; 80053; 80061; 83036; 85027; 93005

== ENCOUNTER 2023-02-11 12:53 | Outpatient (AMB) | payer OTHER, SELFPAY ==
--- NOTE | 2023-02-11 13:10 | MHC.OFFVIS ---
Intake Vital Signs 02/11/23 13:18 Height 5 ft 9 in Weight 309 lb BMI 45.6 Intake Visit Reasons: ov- Left shoulder pain Intake Note: Alfredito 47 yr old male presents today for his follow up visit for his Painful arc syndrome of left shoulder. States he had his blood draw 2 weeks ago and his PCP increased his insulin dose. States his shoulder is the same but his wrist pain has increase. He has started P.T but feels no improvement. Allergies No Known Allergies Allergy (Verified 02/11/23 13:17) HPI ov- Left shoulder pain HPI Details 47-year-old right hand dominant male, who is Armenian speaking, presents in the office today for a follow up of left shoulder pain. The patient reports his shoulder pain is the same, but his wrist pain has increased. He confirms participating in physical therapy, but reports no improvement. He reports having blood work obtained 2 weeks ago (01/25/2023) and states his PCP increased his insulin dose. Lab work obtained on 01/25/2023: Fasting glucose 248 Hemoglobin A1c 11.0 [facility] Medical History Acid reflux Hx of diabetes mellitus Surgical History No pertinent past surgical history Family History Mother Heart problem Hypertension Father No problems noted. Daughter No problems noted. Daughter No problems noted. 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 No ecchymosis, erythema, or edema. Full shoulder ROM in all planes. Positive cross-body reach. 4/5 strength with empty can. Negative drop arm. NVI. Assessment & Plan Assessment & Plan (1) Arthritis of left acromioclavicular joint: Code(s): M19.012 - Primary osteoarthritis, left shoulder (2) Painful arc syndrome of left shoulder: Code(s): M75.102 - Unspecified rotator cuff tear or rupture of left shoulder, not specified as traumatic (3) Trigger finger, left middle finger: Code(s): M65.332 - Trigger finger, left middle finger (4) Diabetes: Code(s): E11.9 - Type 2 diabetes mellitus without complications Qualifiers: Diabetes mellitus complication status: with hyperglycemia Diabetes mellitus tank terminal gauger insulin use: without tank terminal gauger use Diabetes mellitus type: type 2 Qualified Code(s): E11.65 - Type 2 diabetes mellitus with hyperglycemia Plan Mr. Edmar Steele is a 47-year-old right hand dominant male, who is Armenian speaking, presents in the office today for a follow up of left shoulder pain. The patient reports his shoulder pain is the same, but his wrist pain has increased. He confirms participating in physical therapy, but reports no improvement. He reports having blood work obtained 2 weeks ago (01/25/2023) and states his PCP increased his insulin dose. Lab work obtained on 01/25/2023: Fasting glucose 248 Hemoglobin A1c 11.0 Left shoulder: I educated the patient that due to his lab work obtained on 01/25/2023 we will defer from the cortisone injection at this time. I would like for him to continue to work with physical therapy on ROM and strengthening of the left shoulder. Left hand middle trigger finger: I discussed the role of a left hand middle digit trigger finger release. However at this time due to his uncontrolled diabetes he is not a good surgical candidate. He demonstrates understanding. He is going to work on getting his diabetes under control before moving forward with treatment. He will call the office once his diabetes is under control and he is ready to move forward with treatment. Follow up for the left shoulder and the left hand will be PRN, or sooner if needed. Patient Instructions: Scribed for Shoshana Vargas PA-C by Chiqui Villegas, medical staffing coordinator, on 02/11/2023 at 1:00 pm, EST. Coding Level of Care Code Est Pt Level 3 (15391) Diagnoses Arthritis of left acromioclavicular joint M19.012 Painful arc syndrome of left shoulder M75.102 Trigger finger, left middle finger M65.332 Type 2 diabetes mellitus with hyperglycemia, without long-term current use of insulin E11.65 Diabetes mellitus complication status: with hyperglycemia Diabetes mellitus tank terminal gauger insulin use: without tank terminal gauger use Diabetes mellitus type: type 2
[2023-02-11 13:18] VITALS: BMI 45.6
== END 2023-02-11 13:30 | disposition home or self-care (01) ==
PROVIDERS: PCP Physician Assistant; Visit Provider Physician Assistant
DX: M19.012 Primary osteoarthritis, left shoulder (principal); M75.102 Unspecified rotator cuff tear or rupture of left shoulder, not specified as traumatic; M65.332 Trigger finger, left middle finger
CPT/HCPCS: 99213

== ENCOUNTER → 2023-02-11 12:53 | Outpatient (BNVA) | payer OTHER, SELFPAY | PROVIDERS: PCP Physician Assistant; Visit Provider Physician Assistant | DX: M19.012 Primary osteoarthritis, left shoulder (principal); M75.102 Unspecified rotator cuff tear or rupture of left shoulder, not specified as traumatic; M65.332 Trigger finger, left middle finger; E11.65 Type 2 diabetes mellitus with hyperglycemia | CPT/HCPCS: 99212 ==

== ENCOUNTER 2023-02-16 15:00 | Outpatient (RCR) | payer OTHER, SELFPAY ==
--- NOTE | 2023-01-29 15:27 | MHC.PT.EP ---
[facility] [place] [facility] [place] [facility] [place] Office [address] [phone] F: [phone] F: [phone] F: [phone] F: [phone] Physical Therapy Plan of Care Date of Evaluation: Date of Surgery: NA Diagnosis: L SHOULDER RC TEAR, , OA L SHLDER, PAINFUL ARC SYNDROME L SHLDER, ARTHRITIS L AC JT Assessment: Pt IS 47 YO M REFERRED TO PT FROM ORTHO WITH L AC JOINT ARTHRITIS, +MODIFIED IMPINGEMENT L SHLDER, WEAKNESS L RC WITH LIMITED ROM. SHOULD BENEFIT FROM PT TO ADDRESS THESE ISSUES. OF NOTE, HAS CTS/TRIGGER FINGER ALSO. WOULD BENEFIT FROM OT CONSULT. 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 INCREASED POSTURE AWARENESS AND AWARENESS SHLDER CARE 2. I HEP WITH DC EX PLAN 3. 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 INCREASED L SHLDER ROM 10 DEGREES ER AND ABD 2. DECREASED L SHLDER PAIN AT LEAST 50% WITH ADLS Treatment Plan: Modalities to reduce pain, spasms and effusion. Manual therapy to restore motion and function. Therapeutic exercise to improve strength and flexibility. Neuromuscular re-education for posture and balance. Therapeutic activities to return to functional activities of daily living. Electronically signed by: EDWINA ALMEIDA PT Please sign and return to therapist. Thank you for your referral.
--- NOTE | 2023-03-19 15:51 | MHC.PT.DC ---
[facility] [place] [facility] [place] [facility] [place] [facility] [address] Ivory Cisneros [address] [phone] F: [phone] F: [phone] F: [phone] F: [phone] Physical Therapy Discharge Report Diagnosis: L SHOULDER RC TEAR, , OA L SHLDER, PAINFUL ARC SYNDROME L SHLDER, ARTHRITIS L AC JT Date of Surgery: NA Date of Evaluation: 01/29/23 Date of Discharge: 03/19/23 Treatments to Date: 5 Cancellations to Date: No Shows to Date: Discharge Status: Patient Elected to Stop Discharge Summary: Pt LAST SEEN ON 02/16/23 (AFTER ORTHO APPT ON 02/11). AT TIME OF LAST APPT, Pt'S SHOULDER WAS SORE FROM NEEDING TO MOVE A COLLAPSED BED WAS TO LIMIT EXS REPS TO ALLOW FOR HEALING. Pt THEN NO SHOWED FURTHER APPTS Electronically signed by: EDWINA ALMEIDA PT Please sign and return to therapist. Thank you for your referral.
== END 2023-03-19 15:51 | disposition home or self-care (01) ==
LOC: HO.PT 15:00
PROVIDERS: PCP Physician Assistant; Visit Provider Physician Assistant
DX: M75.102 Unspecified rotator cuff tear or rupture of left shoulder, not specified as traumatic (principal); M19.012 Primary osteoarthritis, left shoulder
CPT/HCPCS: 97014; 97110; 97140; 97161; 97530

== ENCOUNTER 2023-02-26 13:16 | Outpatient (AMB) | payer OTHER, SELFPAY ==
--- NOTE | 2023-02-26 13:21 | A.OFFPC_ITS ---
Vital Signs 02/26/23 13:26 Height 5 ft 9 in Weight 315 lb 2 oz BMI 46.5 BP 130/80 Blood Pressure Location Lt brachial Position Sitting Pulse 75 Pulse Source Pulse Oximeter Pulse Oximetry (%) 98 Oxygen Delivery Method Room Air Intake Visit Reasons: Lt CTR/ MF TriggerRelease,r/s 01/28-needs PHQ-9 Intake Note: Patient is here for a Pre-op for Lt CTR/ Lt MF Trigger release scheduled with Hailee Silverman ([facility]) on unknown. 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 Name: John Information Interpreted: non-clinical & clinical Tours Hostess: Present Accompanied by: Spouse Allergies No Known Allergies Allergy (Verified 02/26/23 13:43) Medication List - Last Reconciled 02/26/23 by EDGAR Liriano atorvastatin 20 mg PO BEDTIME 90 days Brace,wrist (Wrist Brace - one) Left wrist brace sized to fit diclofenac sodium 1% (Arthritis Pain (diclofenac)) 4 grams topical QID insulin glargine (Lantus Solostar U-100 Insulin) 20 units (0.2 mL) subcut QPM 30 days lisinopril 5 mg PO DAILY 90 days meloxicam 15 mg PO DAILY 30 days metformin 1,000 mg PO BID 30 days pen needle, diabetic (BD Ultra-Fine Carin Pen Needle) As directed tizanidine 2 mg PO TID PRN Tobacco use date assessed: 02/26/23 Dental Screening Dental Screen Date: 02/26/23 Did you have a dental visit in the last 12 months?: Yes Did you have a dental problem in the last 6 months where you did not have access to dental care?: No Was dental information given to patient?: Patient has dentist HPI HPI Comments History of Present Illness Details 47-year-old male past medical history si gnificant for diabetes, hypercholesteremia, MIRIAM, hypertension. Patient of Fred Díaz, patient presents today for preop appointment. Preop appointment for trigger finger release, however patient's hemoglobin A1c in office today was 10.9% unable to clear patient to undergo surgery at this time until hemoglobin A1c below 8%. Patient presents today with his significant other which reports that occasionally he does forget to take his metformin or his Lantus at night. Patient requesting to be started on semaglutide weekly injections. Discussed with patient at length he will have to continue taking metformin a 1000 mg b.i.d., Lantus and can initiate semaglutide 0.25 mg weekly. In addition to following and strict diabetic diet and exercising to reduce BMI to lower his A1c. [facility] Medical History Acid reflux Hx of diabetes mellitus Surgical History No pertinent past surgical history Family History (Updated 02/26/23 @ 13:22 by ELMER Vergara) Mother Heart problem Hypertension Father No problems noted. Daughter No problems noted. Daughter No problems noted. 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 1. Little interest or pleasure in doing things: not at all 2. Feeling down, depressed, or hopeless: not at all 3. Trouble falling or staying asleep, or sleeping too much: not at all 4. Feeling tired or having little energy: not at all 5. Poor appetite or overeating: not at all 6. Feeling bad about yourself - or that you are a failure or have let yourself or your family down: not at all 7. Trouble concentrating on things, such as reading the newspaper or watching television: not at all 8. Moving or speaking so slowly that other people could have noticed. Or the opposite - being so fidgety or restless that you have been moving around a lot more than usual: not at all 9. Thoughts that you would be better off or of hurting yourself in some way: not at all Total score: 0 Depression Screening Interpretation: Negative Source: Developed by Drs. Saúl Galvin, Tyra Gonsalez, Farzad Veronica and colleagues, with an educational julia from [employer]. Thrive Questionnaire Date Thrive assessed: 02/26/23 I am a: Patient What is your living situation today?: I have a steady place to live Within the past 12 months, did the food you bought not last and you didn't have the money to get more?: Never true Within the past 12 months, did you worry whether your food would run out before you got money to buy more?: Never true Do you have trouble paying for medicines?: No Do you have trouble getting transportation to medical appointments?: No Do you have trouble paying your heating and electricity bill?: No Do you have trouble taking care of your child, family member or friend?: No Do you have trouble with day-to-day activities such as bathing, preparing meals, shopping, managing finances, etc.?: No Are you currently unemployed and looking for a job?: No Are you interested in more education?: No Currently or been in a relationship where the following occur: no concerns reported AUDIT C Alcohol Use Questionnaire (AUDIT-C) 1. How often do you have a drink containing alcohol?: Monthly or less 2. How many drinks containing alcohol do you have on a typical day when you are drinking?: 1 or 2 Total Score: 1 OMAR-7 AMB Questionnaire OMAR-7 Date OMAR - 7 assessed: 02/26/23 Feeling nervous, anxious, or on edge: 2 = More than half the days Not being able to stop or control worryin = Not at all Worrying too much about different things: 0 = Not at all Trouble relaxin = Several days Being so restless that it is hard to sit still: 1 = Several days Becoming easily annoyed or irritable: 2 = More than half the days Feeling afraid as if something awful might happen: 0 = Not at all Total OMAR-7 score (0-4 normal; 5-9 mild; 10-14 moderate; 15-21 severe): 6 Source: Developed by Drs. Saúl Galvin, Tyra Gonsalez, Farzad Veronica and colleagues, with an educational julia from [employer]. Review of Systems Const Denies chills, Denies fatigue, Denies fever(s) and Denies poor appetite Eyes Denies no additional complaints ENT Reports Normal hearing present Card Denies chest pain, Denies syncope, Denies rapid heart rate and Denies dyspnea Resp Denies cough and Denies dyspnea GI Denies change in stool character, Denies constipation, Denies diarrhea, Denies nausea and Denies vomiting Denies dysuria, Denies urinary frequency and Denies urinary urgency Neuro Reports Normal hearing present, Denies confusion and Denies syncope Psych Denies confusion Endo Denies fatigue Physical exam (Primary Care) Vital Signs: Last Vital Signs Pulse 75 02/26/23 13:26 BP 130/80 02/26/23 13:26 Pulse Ox 98 02/26/23 13:26 Oxygen Delivery Method Room Air 02/26/23 13:26 BMI result Body Mass Index 46.5 Tobacco/Smoking Status: Tobacco use Status Tobacco use date assessed 02/26/23 02/26/23 13:28 Patient Tobacco Use Status Former Tobacco user 02/26/23 13:28 Tobacco use type Cigarette 02/26/23 13:28 e-Cigarette/Vaping Use Never Used 02/26/23 13:28 PHQ-9: PHQ-9 Score PHQ-9: Total score 0 02/26/23 13:59 Depression Screening Interpretation: Negative Thrive Assessment: Date of Thrive Assessment Date Thrive assessed 02/26/23 02/26/23 13:28 Currently or been in a relationship where the following occur: no concerns reported Const General: No confusion Orientation/consciousness: No confusion HENMT Head: Yes normocephalic and Yes atraumatic Eyes Conjunctivae: conjunctivae normal Chest Chest palpation & inspection: normal inspection of the chest Resp Effort & Inspection: normal respiratory effort Auscultation: clear to auscultation bilaterally, no crackles, no rhonchi and no wheezes Cardio Rate: regular rate Rhythm: regular rhythm Heart sounds: S1 normal heart sound present and S2 normal heart sound present GI Inspection: Yes normal to inspection Neuro General: No confusion Cranial nerves: Yes Normal hearing present Extrem General: No edema Results AMB Hemoglobin A1c AMB Hemoglobin A1c 10.9 % Last Edit by ELMER Vergara on 02/26/23 13:5 1 Results Reviewed Results Reviewed: Laboratory Last Values Hgb A1c (Clinic) 10.9 % (4.0-6.0) H 02/26/23 13:44 Assessment and Plan Assessment & Plan (1) Diabetes: Code(s): E11.9 - Type 2 diabetes mellitus without complications Qualifiers: Diabetes mellitus complication status: with hyperglycemia Diabetes mellitus car rental service attendant insulin use: without car rental service attendant use Diabetes mellitus type: type 2 Qualified Code(s): E11.65 - Type 2 diabetes mellitus with hyperglycemia Plan: Continue on metformin a 1000 mg b.i.d., Lantus 20 units at bedtime and will initiate semaglutide 0.25 mg q.week Patient educated to decrease the amount of carbohydrate intake such as pasta, bread, rice and potatoes are all sugar in addition to the sweet stuff. Remember that fruits are good but they also have sugar.Hemoglobin A1c goal of less than 6.5% Patient reports that he was seen by diabetic safe and vault service mechanic x1 never was scheduled for follow-up. Will re-enter referral. (2) Pre-op evaluation: Code(s): Z01.818 - Encounter for other preprocedural examination Plan: Unable to clear for trigger finger surgery at this time until hemoglobin A1c less than 8% (3) HTN (hypertension): Code(s): I10 - Essential (primary) hypertension Qualifiers: Hypertension type: primary hypertension Qualified Code(s): I10 - Essential (primary) hypertension Plan: Continue on lisinopril 5 mg daily. Follow low-salt diet and exercise. Plan Follow-up in 3 months. Orders: Orders TSH reflex Free T4 3 Months Z13.29 - Encounter for screening for other suspected endocrine disorder Hemoglobin A1c 3 Months E11.9 - Type 2 diabetes mellitus without complications AMB Hemoglobin A1c Today E11.9 - Type 2 diabetes mellitus without complications Comprehensive [place]. Panel Fast 3 Months E11.9 - Type 2 diabetes mellitus without complications Complete Blood Count Auto Diff 3 Months Z13.0 - Encounter for screening for diseases of the blood and blood-forming organs and certain disorders involving the immune mechanism Lipid Panel 3 Months Z13.220 - Encounter for screening for lipoid disorders Microalbumin, Random (w Creat) 3 Months E11.9 - Type 2 diabetes mellitus without complications Referrals Endocrinology Referral E11.9 - Type 2 diabetes mellitus without complications Heel Seat Pounder Nutrition Referral E11.9 - Type 2 diabetes mellitus without complications Medications: New semaglutide 0.25 mg (0.368 mL) subcut QWEEK 3 mL 3RF Refilled metformin 1,000 mg PO BID 60 tabs 3RF 30 days E11.65 - Type 2 diabetes mellitus with hyperglycemia Coding Level of Care Code Est Pt Level 4 (27430) Diagnoses Type 2 diabetes mellitus with hyperglycemia, without long-term current use of insulin E11.65 Diabetes mellitus complication status: with hyperglycemia Diabetes mellitus longterm insulin use: without car rental service attendant use Diabetes mellitus type: type 2 Pre-op evaluation Z01.818 Primary hypertension I10 Hypertension type: primary hypertension
[2023-02-26 13:26] VITALS: BP 130/80; PULSE 75; O2SAT 98; BMI 46.5
== END 2023-02-26 13:57 | disposition home or self-care (01) ==
PROVIDERS: PCP Physician Assistant; Visit Provider Nurse Practitioner Family
DX: Z01.818 Encounter for other preprocedural examination (principal); G56.02 Carpal tunnel syndrome, left upper limb; E11.65 Type 2 diabetes mellitus with hyperglycemia; I10 Essential (primary) hypertension
CPT/HCPCS: 83036; 99214

== ENCOUNTER 2023-05-07 15:58 | Emergency (ER) | payer OTHER, SELFPAY ==
[2023-05-07 16:58] VITALS: BP 134/80; PULSE 81; RESP 16; TEMP 36; O2SAT 95; BMI 45.8
--- NOTE | 2023-05-07 17:00 | ED_ITS ---
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 Patient states that he had an episode of bright red blood in his stool today. Patient denies any dizziness, lightheadedness, abdominal pain, nausea, vomiting, fever, chills, blurry vision, double vision, loss of vision, chest pain, difficulty breathing, shortness of breath, back pain, night sweats, pain with urination, increased urinary frequency, increased urinary urgency, blood in his urine, syncope or a near syncopal episode, recent trauma or falls, bowel incontinence, bladder incontinence, bowel retention, bladder retention, or any other complaints at this time. Severity: mild Relieving factors: none Exacerbating factors: none Associated symptoms: denies other symptoms Treatments prior to arrival: none Related Data Previous Rx's Medication Instructions Recorded meloxicam 15 mg tablet 15 mg PO DAILY 30 days #30 tabs 07/24/22 lisinopril 5 mg tablet 5 mg PO DAILY 90 days #90 tabs 11/23/22 diclofenac sodium 1 % topical gel 4 g topical QID pain #100 grams 12/16/22 (Arthritis Pain (diclofenac)) tizanidine 2 mg tablet 2 mg PO TID PRN muscle spasticity 12/16/22 #60 tabs atorvastatin 20 mg tablet 20 mg PO BEDTIME 90 days #90 tabs 01/28/23 insulin glargine 100 unit/mL (3 20 unit (0.2 mL) subcut QPM 30 01/28/23 mL) subcutaneous pen (Lantus days #6 mL Solostar U-100 Insulin) pen needle, diabetic 32 gauge x #50 ea 01/31/23 (BD Ultra-Fine Carin Pen Needle) Brace,wrist (Wrist Brace - one) #1 ea 02/02/23 metformin 1,000 mg tablet 1,000 mg PO BID 30 days #60 tabs 02/26/23 semaglutide 0.25 mg or 0.5 mg (2 0.25 mg (0.368 mL) subcut QWEEK #3 02/26/23 mg/3 mL) subcutaneous pen injector mL Allergies Allergy/AdvReac Type Severity Reaction Status Date / Time No Known Allergies Allergy Verified 05/07/23 16:58 Review of Systems 2 Constitutional: Constitutional: Reports no additional constitutional complaints, Denies chills, Denies fever(s) and Denies night sweats Eyes: Eyes: Reports no additional eye complaints, Denies blurry vision, Denies change in vision, Denies diplopia, Denies eye discharge, Denies loss of vision and Denies eye pain ENT: Denies dizziness Cardiovascular: Cardiovascular: Reports no additional cardiovascular complaints, Denies chest pain, Denies lightheadedness, Denies Loss of Consciousness and Denies dyspnea Respiratory: Respiratory: Reports no additional respiratory complaints and Denies dyspnea Gastrointestinal: Gastrointestinal: Reports no additional gastrointestinal complaints, Denies abdominal pain, Denies melena, Reports hematochezia, Denies change in bowel habits and Denies change in stool character Genitourinary: Genitourinary: Reports no additional male genitourinary complaints, Denies hematuria, Denies oliguria, Denies difficulty urinating, Denies dysuria, Denies urinary frequency, Denies urinary hesitancy, Denies urinary incontinence and Denies urinary urgency Musculoskeletal: Musculoskeletal: Reports no additional musculoskeletal complaints, Denies numbness and Denies tingling Neurologic: Denies dizziness, Denies loss of vision, Denies numbness and Denies tingling Psychiatric: Psychiatric: Reports no additional psychiatric complaints Endocrine: Endocrine: Reports no additional endocrine complaints Hematologic/Lymphatic: Hematologic/Lymphatic: Reports no additional hematologic/lymphatic complaints Allergic/Immunologic: Allergic/Immunologic: Reports no additional allergic/immunologic complaints [facility] Past Medical History Attestation statement: The following information was validated with the patient. Source: old records reviewed and nursing notes reviewed Medical History Pre-op evaluation Trapezius muscle strain Numbness and tingling in left hand Right knee pain Bilateral anterior knee pain COVID-19 Balanitis Hand pain Morbid obesity Acid reflux Hx of diabetes mellitus Surgical History No pertinent past surgical history Family History Family History Mother Heart problem Hypertension Father No problems noted. Daughter No problems noted. Daughter No problems noted. 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 Cognitive needs: No Hearing needs: No Vision needs: No Physical Exam ED Vital Signs: Vital Signs - 24 hr 05/07/23 16:58 Temperature 96.8 F Pulse Rate 81 Respiratory Rate 16 Blood Pressure 134/80 Pulse Oximetry 95 Oxygen Delivery Method Room Air BMI result Body Mass Index 45.8 Const General: cooperative, no acute distress, alert and awake Nutritional Appearance: well nourished and obese morbidly obese Orientation/consciousness: patient oriented x3 Limitations: no limitations HENMT Head: Yes normal to inspection and Yes atraumatic Ears: hearing grossly normal bilaterally and external ears normal General nose exam: Normal external nose present, no nasal discharge noted and no epistaxis Face and sinus: Yes normal facial exam, No abrasion and No laceration Mouth: Normal oral and palatal mucosa present, no drooling and no muffled voice Eyes General: appearance normal, both eyes and all related structures Periorbital: periorbital findings normal Eyelids: Yes eyelids normal Conjunctivae: conjunctivae normal Pupils: Equal, round and reactive pupils present EOM: EOMs intact bilaterally Neck Neck: Yes normal visual inspection, Yes full ROM and Yes no lymphadenopathy Chest Chest palpation & inspection: normal inspection of the chest Resp Effort & Inspection: normal respiratory effort and able to speak in complete sentences GI Inspection: Yes normal to inspection Rectal Exam - Male: Yes visual inspection normal and Yes Internal hemorrhoid(s) present Neuro General: patient oriented x3 and moves all extremities Cranial nerves: Yes Equal, round and reactive pupils present Cognition (Neuro): normal cognition Motor exam (neuro): 5/5 motor strength present throughout Sensory Exam: Normal double simultaneous stimulation for sensation Coordination: [id number] test normal Extrem General: Yes normal to inspection, Yes full ROM and Yes capillary refill normal Psych Appearance: grossly normal Mental Status: mental status grossly normal Affect: normal affect Attitude: cooperative Thought process: Normal thought process present Thought content: Normal thought content present Insight: Good insight present (Psych) Course Course Course Narrative: RME- 48-year-old male presents for evaluation of bright red blood in his stool for the last 2 hours. Denies diarrhea or loose stool. Medical Decision Making Medical Decision Making MDM Narrative: Patient is a 48 year old assigned male at with a history of DM, HTN, and constipation presenting to the emergency department today after an episode of bright red blood in his stool. Patient's physical exam was as noted in the physical exam portion of this note. Patient's blood work showed an elevated blood sugar but was otherwise unremarkable. Patient denies any symptoms of DKA. Patient states that he has not been tracking his sugars as well as he should be as of late. I explained my physical exam findings as well as all test results to the patient. I answered all questions asked by the patient. I stressed the importance of the patient taking his medication as prescribed. I stressed the importance of the patient following up with his primary care provider and a general surgeon about his hemorrhoids. I stressed the importance of the patient returning to the emergency department immediately if his symptoms were to worsen or if he were to develop any dizziness, shortness of breath, difficulty breathing, chest pain, blurry vision, loss of vision, nausea, vomiting, abdominal pain, fever, chills, back pain, or any other complaints. Patient verbalized agreement and understanding with this treatment plan and discharge. Differential Diagnosis Differential Diagnoses: The differential diagnosis associated with the presentation includes Hemorrhoid Bright red bloody stool Admission/Observation Consideration of admission/observation: Escalation of care including admission/observation considered Patient would have been admitted to the hospital had his work up had any findings where hospital admission was appropriate and his clinical presentation warranted hospital admission. Lab Data [facility] Lab Attestation statement: I reviewed the patient's lab results. My interpretation of these results are in the MDM Rationale portion of this note. 05/07/23 17:23 05/07/23 17:23 Labs: Lab Results 05/07/23 Range/Units 17:23 WBC 8.0 (4.8-10.8) X10*3/uL RBC 5.18 (4.60-5.80) X10*6/uL Hgb 14.9 (14.0-18.0) g/dl Hct 45.4 (42.0-52.0) % MCV 87.6 (80.0-98.0) fL MCH 28.8 (27.0-33.0) pg MCHC 32.8 (31.0-36.0) g/dl RDW 11.8 (11.0-16.0) % Plt Count 253 (160-400) X10*3/uL MPV 11.5 (9.4-12.4) fL Immature Gran % (Auto) 0.5 H (0.0-0.4) % Neut % (Auto) 57.3 (45-73) % Lymph % (Auto) 33.5 (20-40) % [place] % (Auto) 6.7 (2-11) % Eos % (Auto) 1.6 (0-4) % Baso % (Auto) 0.4 (0-2) % Lymph # (Auto) 2.7 (1.2-4.9) X10*3/uL [place] # (Auto) 0.5 (0.1-1.2) X10*3/uL Eos # (Auto) 0.1 (0.0-0.4) X10*3/uL Baso # (Auto) 0.0 (0.0-0.2) X10*3/uL Abs Immat Gran (auto) 0.04 H (0.00-0.03) X10*3/uL Absolute Neuts (auto) 4.6 (2.0-8.3) x10*3/uL Absolute Nucleated RBC 0.000 (0.0-0.012) X10*3/uL Nucleated RBC % (auto) 0.0 (0.0-0.2) /100WBC PT 10.6 L (11.1-13.3) SEC INR 0.9 (0.9-1.1) APTT 32.3 (26.0-36.4) SEC Sodium 135 (135-145) mmol/L Potassium 4.4 (3.3-5.1) mmol/L Chloride 104 (96-108) mmol/L Carbon Dioxide 22 (22-29) mmol/L Anion Gap 13 (12-20) BUN 14 (9-16) mg/dL Creatinine 1.20 (0.5-1.4) mg/dL Estim Creat Clear Calc 105.0 Estimated GFR > 60 Random Glucose 616 H* (60-115) mg/dL Calcium 9.4 (8.4-10.2) mg/dL Total Bilirubin 0.4 (0.0-1.0) mg/dL AST 21 (5-37) U/L ALT 43 H (0-40) U/L Alkaline Phosphatase 106 (39-117) U/L Total Protein 7.7 (6.5-8.0) g/dL Albumin 4.2 (3.5-5.0) g/dL Lipase 25 (8-78) U/L Chronic Conditions Patient?s care impacted by: Diabetes and Hypertension Discharge Plan Discharge Clinical Impression: Acute hyperglycemia, Hemorrhoid Patient Disposition: Home, Self-Care Instructions: Hemorrhoids (DC), Diabetic Hyperglycemia (ED) Additional Instructions: Follow up with your primary care provider and a general surgeon. Return to the emergency department immediately if your symptoms worsen or if you develop any dizziness, shortness of breath, difficulty breathing, chest pain, blurry vision, loss of vision, nausea, vomiting, abdominal pain, fever, chills, back pain, or any other complaints. Erik un seguimiento con mcneal proveedor de atenci?n primaria y un cirujano general. Regrese al departamento de emergencias inmediatamente si nyla s?ntomas empeoran o si presenta mareos, dificultad para respirar, dificultad para respirar, dolor en el pecho, visi?n borrosa, p?rdida de la visi?n, n?useas, v?mitos, dolor abdominal, fiebre, escalofr?os, dolor de espalda o cualquier otras quejas. Prescriptions: No Action meloxicam 15 mg tablet 15 mg PO DAILY 30 Days Qty: 30 1RF lisinopril 5 mg tablet 5 mg PO DAILY 90 Days Qty: 90 1RF atorvastatin 20 mg tablet 20 mg PO BEDTIME 90 Days Qty: 90 1RF insulin glargine [Lantus Solostar U-100 Insulin] 100 unit/mL (3 mL) insulin pen 20 unit subcut QPM 30 Days Qty: 6 0RF (DME) pen needle, diabetic [BD Ultra-Fine Carin Pen Needle] 32 gauge x 5/32 needle See Rx Instructions .ROUTE .MEDSUPPLY Qty: 50 2RF Rx Instructions: As directed (DME) [place]rist [place] [facility] [place] Rx Instructions .Route Qty: 1 0RF Rx Instructions: Left wrist brace sized to fit metformin 1,000 mg tablet 1,000 mg PO BID 30 Days Qty: 60 3RF semaglutide 0.25 mg or 0.5 mg (2 mg/3 mL) pen injector 0.25 mg subcut QWEEK Qty: 3 3RF diclofenac sodium [Arthritis Pain (diclofenac)] 1 % gel 4 g topical QID Qty: 100 0RF Rx Instructions: apply to right upper back as needed. do not take with meloxicam or other NSAIDS tizanidine 2 mg tablet 2 mg PO TID PRN (Reason: muscle spasticity) Qty: 60 1RF Rx Instructions: do not drive, drink alcohol or operate heavy machinery while taking this medication Referrals: [facility] [place] General Surgeons [Provider Group] (Call to establish and follow up with a general surgeon. Llame para establecer y meir seguimiento con un cirujano general.) Lee Díaz PA-C [Primary Care Provider] - Interventions: ED Discharge Assessment Last Done: 05/07/23 18:12 Discharge Date/Time: 05/07/23 18:13 Print Language: Citizen Of [place]
[2023-05-07 17:28] LABS: MANUAL DIFF FLAG NO
[2023-05-07 17:29] LABS: Basophils Percent Auto 0.4 % (0-2); Eosinophils Absolute Auto 0.1 X10*3/uL (0.0-0.4); Eosinophils Percent Auto 1.6 % (0-4); Hematocrit 45.4 % (42.0-52.0); Hemoglobin 14.9 g/dl (14.0-18.0); Imm Gran Abs Auto 0.04 X10*3/uL (0.00-0.03); Imm Gran Pct Auto 0.5 % (0.0-0.4); Lymphocytes Absolute Auto 2.7 X10*3/uL (1.2-4.9); Lymphocytes Percent Auto 33.5 % (20-40); Mean Corpuscular HGB Conc 32.8 g/dl (31.0-36.0); Mean Corpuscular Hemoglobin 28.8 pg (27.0-33.0); Mean Corpuscular Volume 87.6 fL (80.0-98.0); Mean Platelet Volume 11.5 fL (9.4-12.4); Monocytes Absolute Auto 0.5 X10*3/uL (0.1-1.2); Monocytes Percent Auto 6.7 % (2-11); Neutrophils Absolute Auto 4.6 x10*3/uL (2.0-8.3); Neutrophils Percent Auto 57.3 % (45-73); Platelet Count 253 X10*3/uL (160-400); Red Blood Count 5.18 X10*6/uL (4.60-5.80); Red Cell Distribution Width 11.8 % (11.0-16.0)
[2023-05-07 17:35] LABS: INTERNATIONAL NORM RATIO 0.9 (0.9-1.1); Prothrombin Time 10.6 SEC (11.1-13.3)
[2023-05-07 17:38] LABS: Partial Thromboplastin Time 32.3 SEC (26.0-36.4)
[2023-05-07 17:52] LABS: Alanine Aminotransferase 43 U/L (0-40); Albumin Level 4.2 g/dL (3.5-5.0); Alkaline Phosphatase 106 U/L (39-117); Anion Gap 13 (12-20); Aspartate Amino Transferase 21 U/L (5-37); Bilirubin Total 0.4 mg/dL (0.0-1.0); Blood Urea Nitrogen 14 mg/dL (9-16); Calcium 9.4 mg/dL (8.4-10.2); Carbon Dioxide 22 mmol/L (22-29); Chloride 104 mmol/L (96-108); Estimated Glomerular Filt Rate > 60; Glucose Random 616 mg/dL (60-115); Lipase 25 U/L (8-78); Potassium 4.4 mmol/L (3.3-5.1); Sodium 135 mmol/L (135-145); Total Protein 7.7 g/dL (6.5-8.0)
== END 2023-05-07 18:13 | disposition home or self-care (01) ==
PROVIDERS: Physician Assistant; Emergency Provider Emergency Medicine; PCP Physician Assistant
DX: A04.8 Other specified bacterial intestinal infections (principal); K92.1 Melena; K64.9 Unspecified hemorrhoids; Z79.899 Other long term (current) drug therapy; Z87.891 Personal history of nicotine dependence
CPT/HCPCS: 36415; 80053; 83690; 85025; 85610; 85730; 99282; 99283

== ENCOUNTER 2023-05-14 10:03 | Outpatient (AMB) | payer OTHER, SELFPAY ==
[2023-05-14 10:10] VITALS: BP 143/84; PULSE 84; BMI 45.9
--- NOTE | 2023-05-14 10:10 | MHC.OFFVIS ---
Intake Vital Signs 05/14/23 10:10 Height 5 ft 9 in Weight 311 lb BMI 45.9 BP 143/84 H Blood Pressure Location Rt brachial Position Sitting Pulse 84 Intake Visit Reasons: Hemorrhoids Intake Note: Patient here to f/u from ER visit on 05-07-23. Was seen for bloody stools. Patient reports no more bloody stools. Patient c/o: constant constipation. Taking Dulcolax at time 4 pills. Has GI appointment in 1wk. 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 He was seen emergency department where he was told he had hemorrhoids. Presents here for further evaluation. Patient otherwise tolerating his diet. Chronic constipation as noted above. Denies any anal receptive practices. Patient has never had colonoscopy before. He denies any change in the size or caliber of his bowel habits. Chart was reviewed patient evaluated [facility] Medical History Pre-op evaluation Trapezius muscle strain Numbness and tingling in left hand Right knee pain Bilateral anterior knee pain COVID-19 Balanitis Hand pain Morbid obesity Acid reflux Hx of diabetes mellitus Surgical History No pertinent past surgical history Family History Mother Heart problem Hypertension Father No problems noted. Daughter No problems noted. Daughter No problems noted. 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 Anorectal exam demonstrates posterior anal fissure. No obvious hemorrhoids. Rectal exam was deferred secondary to patient discomfort. Assessment & Plan Assessment & Plan (1) Anal fissure: Code(s): K60.2 - Anal fissure, unspecified (2) Constipation: Code(s): K59.00 - Constipation, unspecified Qualifiers: Constipation type: other constipation type Qualified Code(s): K59.09 - Other constipation Plan Patient and have been given instructions regarding stool softening including drinking lot of water, eating salads, res), Metamucil/Citrucel. Arrangements will be made for also for GI consultation. Patient will follow-up p.r.n.. Coding Level of Care Code New Pt Level 4 (87158) Diagnoses Anal fissure K60.2 Other constipation K59.09 Constipation type: other constipation type
== END 2023-05-14 11:05 | disposition home or self-care (01) ==
PROVIDERS: PCP Physician Assistant; Visit Provider Surgery
DX: K60.2 Anal fissure, unspecified (principal); K59.09 Other constipation
CPT/HCPCS: 99204

== ENCOUNTER → 2023-05-14 10:03 | Outpatient (BNVA) | payer OTHER, SELFPAY | PROVIDERS: PCP Physician Assistant; Visit Provider Surgery | DX: K60.2 Anal fissure, unspecified (principal); K59.09 Other constipation | CPT/HCPCS: 99202 ==

== ENCOUNTER 2023-05-27 09:07 | Outpatient (AMB) | payer OTHER, SELFPAY ==
--- NOTE | 2023-05-27 09:17 | A.OFFVIS_ITS ---
Intake Vital Signs 05/27/23 09:23 Height 5 ft 9 in Weight 311 lb BMI 45.9 BP 143/75 H Blood Pressure Location Lt brachial Position Sitting Pulse 80 Intake Visit Reasons: Constipation/anal fissure Intake Note: Patient new consult for Constipation/anal fissure ad 2nd Pre colonoscopy screening Patient cc: Constipation with some blood on and off, abdominal pain with fullness, acid reflex with burning sensation. 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 Accompanied by: Spouse Allergies No Known Allergies Allergy (Verified 05/27/23 09:16) Medication List - Last Reconciled 05/27/23 by Edna Maciel PA-C atorvastatin 20 mg PO BEDTIME 90 days Brace,wrist (Wrist Brace - one) Left wrist brace sized to fit diclofenac sodium 1% (Arthritis Pain (diclofenac)) 4 grams topical QID insulin glargine (Lantus Solostar U-100 Insulin) 20 units (0.2 mL) subcut QPM 30 days lisinopril 5 mg PO DAILY 90 days meloxicam 15 mg PO DAILY 30 days metformin 1,000 mg PO BID 30 days pen needle, diabetic (BD Ultra-Fine Carin Pen Needle) As directed semaglutide 0.25 mg (0.368 mL) subcut QWEEK tizanidine 2 mg PO TID PRN HPI HPI Comments History of Present Illness Details A 48 y/o male referred after ED and surgical consult with rectal bleeding- Anal fiisure He has constipation for the past 10 years- has had a colonoscopy in [place] about 7 years ago-he did have polyps. BM typically Q 2-3 days- smalll hard stool- taking stool softener a couple times a week- He has diabetes is not very well controlled. Appetite is good No nausea, vomiting hematemesis fever or chills PFSH Medical History Pre-op evaluation Trapezius muscle strain Numbness and tingling in left hand Right knee pain Bilateral anterior knee pain COVID-19 Balanitis Hand pain Morbid obesity Acid reflux Hx of diabetes mellitus Surgical History No pertinent past surgical history Family History Mother Heart problem Hypertension Father No problems noted. Daughter No problems noted. Daughter No problems noted. 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 Cognitive needs: No Hearing needs: No Vision needs: No Review of Systems Const All systems reviewed & are unremarkable except as noted in HPI and below Card Denies chest pain and Denies dyspnea Resp Denies dyspnea GI Reports hematochezia, Reports constipation, Denies diarrhea, Denies nausea and Denies vomiting Physical Exam Vital Signs: Last Vital Signs Pulse 80 05/27/23 09:23 BP 143/75 H 05/27/23 09:23 BMI result Body Mass Index 45.9 Const General: cooperative, comfortable and no acute distress Nutritional Appearance: overweight Orientation/consciousness: patient oriented x3 Limitations: language barrier Eyes Sclerae: sclerae normal Resp Effort & Inspection: normal respiratory effort and able to speak in complete sentences Auscultation: clear to auscultation bilaterally, no rales, no rhonchi and no wheezes Cardio Rate: regular rate Rhythm: regular rhythm Heart sounds: S1 normal heart sound present and S2 normal heart sound present GI Palpation (GI): Soft to palpation and nontender Auscultation: normal bowel sounds Skin General skin exam: no rashes or lesions noted Neuro General: patient oriented x3 Extrem General: Yes full ROM Psych Appearance: grossly normal and well kempt Mental Status: mental status grossly normal Speech and movement: Normal speech and movement present Affect: normal affect Attitude: cooperative Thought process: Normal thought process present Thought content: Normal thought content present Insight: Good insight present (Psych) Judgement: Good judgement present (Psych) Results Reviewed Results Reviewed: Dr. Mendoza-Abdomen corpulent, soft, benign. Anorectal exam demonstrates posterior anal fissure. No obvious hemorrhoids. Rectal exam was deferred secondary to patient discomfort. Assessment & Plan Assessment & Plan (1) Anal fissure: Comment: Consult with Dr. Mendoza Code(s): K60.2 - Anal fissure, unspecified Plan: anal fissure- (2) History of colon polyps: Comment: colonoscopy- when able to prep Code(s): Z86.010 - Personal history of colonic polyps Plan: Consistent bowel routine- (3) Chronic constipation: Comment: Reviewed diet encouraged high-fiber Better glucose control Consistent bowel regimen Code(s): K59.09 - Other constipation Plan: consistent bowel regimen-to ensure good bowel prep for colonoscopy Plan F/U [facility] then discuss - polyp surveillance Orders: Orders H pylori Ag Stool Today A04.8 - Other specified bacterial intestinal infections Medications: New calcium polycarbophil (Fiber Laxative (calcium polycarbophil)) 1,250 mg (2 x 625 mg) PO DAILY PRN 60 tabs 3RF constipation 30 days docusate sodium (Colace) 200 mg (2 x 100 mg) PO BEDTIME 60 caps 5RF bisacodyl (Dulcolax (bisacodyl)) 10 mg [place] DAILY PRN 20 ea 0RF constipation polyethylene glycol 3350 (Miralax) 17 grams PO DAILY 510 grams 6RF Patient Instructions: Pleasant 48-year-old male chronic constipation, anal fissure, personal history of colon polyps-GI history unclear Is due for colonoscopy however discussed importance of good bowel prep- reinforced importance of consistency of regimen Maintain a high-fiber diet Encourage better glucose control Follow back for progress in hopes for improvement so that we can get colonoscopy scheduled. He is encouraged to call with any questions or concerns His was present and interpreted much of the visit-with input from patient Coding Level of Care Code New Pt Level 4 (94252) Diagnoses Anal fissure K60.2 History of colon polyps Z86.010 Chronic constipation K59.09 Time Spent (min) 35
[2023-05-27 09:23] VITALS: BP 143/75; PULSE 80; BMI 45.9
== END 2023-05-27 10:09 | disposition home or self-care (01) ==
PROVIDERS: PCP Physician Assistant; Visit Provider Physician Assistant
DX: K60.2 Anal fissure, unspecified (principal); Z86.010 Personal history of colon polyps; K59.09 Other constipation
CPT/HCPCS: 99204

== ENCOUNTER → 2023-05-27 09:07 | Outpatient (BNVA) | payer OTHER, SELFPAY | PROVIDERS: PCP Physician Assistant; Visit Provider Physician Assistant | DX: K60.2 Anal fissure, unspecified (principal); K59.09 Other constipation; Z86.010 Personal history of colon polyps | CPT/HCPCS: 99202 ==

== ENCOUNTER 2023-06-01 | Outpatient (REF) | payer OTHER, SELFPAY | END 2023-06-01 00:01 | disposition home or self-care (01) | LOC: HO.LNP | PROVIDERS: Visit Provider Physician Assistant | DX: A04.8 Other specified bacterial intestinal infections (principal) | CPT/HCPCS: 87338 ==

== ENCOUNTER 2023-07-07 11:08 | Outpatient (AMB) | payer OTHER, SELFPAY ==
[2023-07-07 11:12] VITALS: BP 144/92; PULSE 78; O2SAT 99; BMI 45.5
--- NOTE | 2023-07-07 11:12 | MHC.PC.OV ---
Vital Signs 07/07/23 11:12 Height 5 ft 9 in Weight 308 lb BMI 45.5 BP 144/92 H Blood Pressure Location Lt brachial Position Sitting Pulse 78 Pulse Source Pulse Oximeter Pulse Oximetry (%) 99 Oxygen Delivery Method Room Air Intake Visit Reasons: PE Intake Note: Patient is here today for a physical. Automation Mechanic Required: No Accompanied by: Spouse Allergies No Known Allergies Allergy (Verified 07/07/23 11:24) Medication List - Last Reconciled 07/07/23 by Lee Díaz PA-C atorvastatin 20 mg PO BEDTIME 90 days bisacodyl (Gentle Laxative (bisacodyl)) 10 mg DC DAILY PRN Brace,wrist (Wrist Brace - one) Left wrist brace sized to fit calcium polycarbophil (Fiber Laxative (calcium polycarbophil)) 1,250 mg (2 x 625 mg) PO DAILY PRN 30 days docusate sodium (Colace) 200 mg (2 x 100 mg) PO BEDTIME insulin glargine (Lantus Solostar U-100 Insulin) 36 units subcut QPM lisinopril 5 mg PO DAILY 90 days meloxicam 15 mg PO DAILY 30 days metformin 1,000 mg PO BID 30 days pen needle, diabetic (BD Ultra-Fine Carin Pen Needle) As directed polyethylene glycol 3350 (Miralax) 17 grams PO DAILY semaglutide 0.25 mg (0.368 mL) subcut QWEEK sertraline 50 mg PO DAILY 30 days Tobacco use date assessed: 02/26/23 HPI PE HPI Details Patient is a 48-year-old male here today for follow-up visit. ?Patient has a past medical history significant for type 2 diabetes, morbid obesity, hyperlipidemia, Fatty liver , and obstructive sleep apnea. . DMII: Patient's type 2 diabetes suboptimally controlled, today's A1c a bit better at 9.6. Currently on high dose of metformin He has establish care with an research associate molecular biology and has been up titrating his long-acting insulin. Also started on Ozempic and has lost a few lb. .. Hyperlipidemia: Most recent fasting lipid panel showing very elevated total cholesterol and LDL. Has been started on statin therapy and will recheck lipid panel in the next 3 months with goal LDL to be below 100 .. Carpal tunnel syndrome: Has followed by [facility]. He is dissipating surgery though needs to get his A1c below 8. Has been working glycemic control .. Anxiety: Anxiety has been existing condition for him. Was on clonazepam in the past though felt it was too strong. He is willing to try new daily medication for anxiety. Also willing to start cognitive behavioral therapy. .. MIRIAM: Does have signs and symptoms of MIRIMA though has never had a sleep study. .. Obese: BMI 45 , interested in bariatric surgery. Vaccine: Up-to-date with tetanus, UTD with FLu, UTD with COVID, needs pneumonia vaccine Colon cancer screening: Has upcoming appt with [facility] Medical History Pre-op evaluation Trapezius muscle strain Numbness and tingling in left hand Right knee pain Bilateral anterior knee pain COVID-19 Balanitis Hand pain Morbid obesity Acid reflux Hx of diabetes mellitus Surgical History No pertinent past surgical history Family History Mother Heart problem Hypertension Father No problems noted. Daughter No problems noted. Daughter No problems noted. Social History (Updated 07/07/23 @ 11:32 by Lee Díaz PA-C) Housing: Apartment Alcohol intake: current Alcohol intake frequency: holidays/special occasions only Patient Tobacco Use Status: Former Tobacco user Quit Date: 2020 Tobacco use type: Cigarette e-Cigarette/Vaping Use: Never Used service: No Current occupational status: unemployed Cognitive needs: No Hearing needs: No Vision needs: No Questionnaire PHQ-9 Over the last 2 weeks, how often have you been bothered by any of the following problems? 1. Little interest or pleasure in doing things: not at all 2. Feeling down, depressed, or hopeless: not at all 3. Trouble falling or staying asleep, or sleeping too much: not at all 4. Feeling tired or having little energy: not at all 5. Poor appetite or overeating: not at all 6. Feeling bad about yourself - or that you are a failure or have let yourself or your family down: not at all 7. Trouble concentrating on things, such as reading the newspaper or watching television: not at all 8. Moving or speaking so slowly that other people could have noticed. Or the opposite - being so fidgety or restless that you have been moving around a lot more than usual: not at all 9. Thoughts that you would be better off or of hurting yourself in some way: not at all Total score: 0 Depression Screening Interpretation: Negative Depression Screening Done: Yes 81157 - PHQ-9 Billing: Yes Source: Developed by Drs. Saúl Galvin, Tyra Gonsalez, Farzad Veronica and colleagues, with an educational julia from [employer]). Thrive Questionnaire Date Thrive assessed: 07/07/23 I am a: Patient What is your living situation today?: I have a steady place to live Within the past 12 months, did the food you bought not last and you didn't have the money to get more?: Never true Within the past 12 months, did you worry whether your food would run out before you got money to buy more?: Never true Do you have trouble paying for medicines?: No Do you have trouble getting transportation to medical appointments?: No Do you have trouble paying your heating and electricity bill?: No Do you have trouble taking care of your child, family member or friend?: No Do you have trouble with day-to-day activities such as bathing, preparing meals, shopping, managing finances, etc.?: No Are you currently unemployed and looking for a job?: No Are you interested in more education?: No Please select the resources that you would like help with: None Currently or been in a relationship where the following occur: no concerns reported THRIVE Score: 0 AUDIT C Alcohol Use Questionnaire (AUDIT-C) 1. How often do you have a drink containing alcohol?: Never 3. How often do you have six or more drinks on one occasion?: Never Total Score: 0 OMAR-7 AMB Questionnaire OMAR-7 Date OMAR - 7 assessed: 02/26/23 Feeling nervous, anxious, or on edge: 2 = More than half the days Not being able to stop or control worryin = Several days Worrying too much about different things: 1 = Several days Trouble relaxin = More than half the days Being so restless that it is hard to sit still: 1 = Several days Becoming easily annoyed or irritable: 0 = Not at all Feeling afraid as if something awful might happen: 1 = Several days Total OMAR-7 score (0-4 normal; 5-9 mild; 10-14 moderate; 15-21 severe): 8 Source: Developed by Drs. Saúl Galvin, Tyra Gonsalez, Farzad Veronica and colleagues, with an educational julia from [employer]). OMAR-7 Assessment Billing OMAR-7 Assessment Tool: OMAR-7 Assessment 80481 Review of Systems Const Denies body aches, Denies chills, Denies excessive sweating, Denies fatigue, Denies fever(s) and Denies headache(s) Eyes Denies blurry vision ENT Denies dysphagia, Denies vertigo, Denies dizziness, Denies headache(s), Denies hearing loss and Denies tinnitus Card Denies chest pain, Denies chest pain with activity, Denies syncope, Denies irregular heart rhythm and Denies dyspnea Resp Denies chest congestion, Denies cough, Denies hemoptysis, Denies dyspnea and Denies wheezing GI Denies abdominal pain, Denies melena, Denies hematochezia, Denies coffee ground emesis, Denies dysphagia, Denies diarrhea, Denies nausea and Denies vomiting Denies difficulty urinating, Denies dysuria, Denies urinary frequency, Denies urinary hesitancy and Denies urinary urgency Musc Denies arthralgias, Denies limited range of motion, Denies muscle cramps and Denies muscle weakness Skin/Breast Denies rash and Denies skin ulcer Neuro Denies Abnormal speech present, Denies confusion, Denies vertigo, Denies dizziness, Denies syncope, Denies headache(s), Denies memory loss and Denies seizure-like activity Psych Denies anxiety, Denies confusion, Denies depression, Denies memory loss, Denies panic attacks and Denies paranoia Endo Denies excessive sweating, Denies fatigue, Denies flushing, Denies polydipsia and Denies polyuria Aller/Immun Denies wheezing Physical exam (Primary Care) Vital Signs: Last Vital Signs Pulse 78 07/07/23 11:12 BP 144/92 H 07/07/23 11:12 Pulse Ox 99 07/07/23 11:12 Oxygen Delivery Method Room Air 07/07/23 11:12 BMI result Body Mass Index 45.5 BMI Assessment/Plan discussion: High Tobacco/Smoking Status: Tobacco use Status Tobacco use date assessed 02/26/23 07/07/23 11:18 Patient Tobacco Use Status Former Tobacco user 07/07/23 11:32 Tobacco use type Cigarette 07/07/23 11:32 e-Cigarette/Vaping Use Never Used 07/07/23 11:32 PHQ-9: PHQ-9 Score PHQ-9: Total score 0 07/07/23 11:57 Depression Screening Interpretation: Negative Thrive Assessment: Date of Thrive Assessment Date Thrive assessed 07/07/23 07/07/23 11:18 Currently or been in a relationship where the following occur: no concerns reported Const Other: OBESE General: cooperative, comfortable, no acute distress, alert and awake; No confusion Orientation/consciousness: oriented to person, oriented to place, patient oriented x3 and No confusion HENMT Head: Yes normocephalic Ears: external ears normal and TM's normal bilaterally Face and sinus: No sinus tenderness Mouth: Normal oral and palatal mucosa present and tongue normal Teeth and gingiva: dentition normal and gingiva normal Throat: Yes posterior oropharynx normal, Yes tonsils normal and Yes uvula midline Eyes Conjunctivae: conjunctivae normal Sclerae: sclerae normal Pupils: Equal, round and reactive pupils present EOM: EOMs intact bilaterally Direct Ophthalmoscopy: No no photophobia Neck Neck: Yes no lymphadenopathy, No tender and Yes no JVD Thyroid: Thyroid normal Carotids: no bruits Chest Chest palpation & inspection: no tenderness Resp Effort & Inspection: normal respiratory effort, no audible wheezes, not labored and no stridor Auscultation: no crackles, no rales, no rhonchi and no wheezes Cardio Jugular venous distension: no JVD Rate: regular rate, not bradycardic and not tachycardic Rhythm: regular rhythm Bruits: no carotid bruits Peripheral pulses: Peripheral pulses 2+ throughout GI Inspection: Yes normal to inspection, No abdominal wall ecchymosis and No visible herniation Palpation (GI): Soft to palpation, nontender, no guarding, not rigid and No hepatosplenomegaly present Auscultation: normoactive bowel sounds General: Yes no CVA tenderness Back/Spine/Pelvis Back: no CVA tenderness and No back tenderness Cervical Spine: cervical ROM normal Thoracic/Lumbar Spine: thoracic and lumbar spine normal to inspection, straight leg raise negative bilaterally, No thoraco-lumbar ROM limited and No lumbar spinal tenderness Skin Lesions: no lesions Rashes: no rashes Wounds: no wounds Neuro General: oriented to person, oriented to place, patient oriented x3, CN's II-XI intact bilaterally and No confusion Cranial nerves: Yes Equal, round and reactive pupils present and Yes Normal accommodation reflex present Cognition (Neuro): normal cognition Speech: No Abnormal speech present Gait exam (Neuro): Normal gait present Motor exam (neuro): 5/5 motor strength present throughout Extrem Right upper extremity: full ROM; no cyanosis Left upper extremity: full ROM; no cyanosis Right lower extremity: no edema Left lower extremity: no edema Psych Appearance: grossly normal Mental Status: mental status grossly normal Affect: normal affect Attitude: cooperative Thought process: Normal thought process present Office Procedures Flu Questionnaire Does the patient have a severe egg allergy?: No Does the patient have severe life threatening allergies?: No Does the patient have a fever or illness today?: No Has the patient ever had Guillain-[place] Syndrome?: No Has the patient ever had any past reaction to a flu shot?: No Results AMB Hemoglobin A1c AMB Hemoglobin A1c 9.6 % Last Edit by JOSE Marin on 07/07/23 11:36 Immunizations flu vacc [id number] 6mos up(PF) 60 mcg(15 mcgx4)/0.5 mL IM syringe Performing Provider: Lee Díaz PA-C Performing Location: [facility] [place] Primary [facility] [place] Administered by: JOSE Marin on 07/07/23 11:25 Dose Route Admin Location Dispensed Lot Number Expiration Date [facility] Arboriculturist 0.5 mL IM Left Deltoid 0.5 mL [id number] 11/28/23 39131-599-97 [id number] VIS Given Date VIS Provided VIS Publication Date 07/07/23 Single Vaccine 21 Eligibility Eligibility Date Funding Source Not C Eligible 07/07/23 Private pneumoc 20-senait conj-dip cr(PF) 0.5 mL IM syringe Performing Provider: Lee Díaz PA-C Performing Location: [facility] [place] Adult Primary [facility] [place] Administered by: JOSE Marin on 07/07/23 11:58 Dose Route Admin Location Dispensed Lot Number Expiration Date [facility] Arboriculturist 0.5 mL IM Right Deltoid 0.5 mL [id number] 07/29/24 0608-7109-31 [employer] VIS Given Date VIS Provided VIS Publication Date 07/07/23 Single Vaccine 21 Eligibility Eligibility Date Funding Source Not VFC Eligible 07/07/23 Private Results Reviewed Results Reviewed: Laboratory Last Values Hgb A1c (Clinic) 9.6 % (4.0-6.0) H 07/07/23 11:35 Assessment and Plan Assessment & Plan (1) Annual physical exam: Code(s): Z00.00 - Encounter for general adult medical examination without abnormal findings (2) Diabetes: Code(s): E11.9 - Type 2 diabetes mellitus without complications Qualifiers: Diabetes mellitus complication status: with hyperglycemia Diabetes mellitus long-term insulin use: without supervisor billposting use Diabetes mellitus type: type 2 Qualified Code(s): E11.65 - Type 2 diabetes mellitus with hyperglycemia Plan: Patient's type 2 diabetes suboptimally controlled. Today's A1c at 9.6. Patient now seen by an research associate molecular biology in [place]. Has been started on Ozempic and has lost a few lb. Likely benefit from higher dose of Ozempic. His long-acting insulin has been up titrated to 36 units Most recent A1c above 10. Goal A1c to be below 7.0 (3) Morbid obesity: Code(s): E66.01 - Morbid (severe) obesity due to excess calories Plan: Patient is interested in remain articulating into the bariatric program as he is interested in bariatric surgery. Needs new referral (4) HTN (hypertension): Code(s): I10 - Essential (primary) hypertension Qualifiers: Hypertension type: primary hypertension Qualified Code(s): I10 - Essential (primary) hypertension Plan: Patient's blood pressure elevated today in office. He reports since due to being a bit nervous. He does report blood pressures at home are 120s to 130 systolic. Otherwise denies any headaches, chest pain or shortness of breath.. (5) OMAR (generalized anxiety disorder): Code(s): F41.1 - Generalized anxiety disorder Plan: Patient does report he has been suffering with anxiety. Was on clonazepam in the past though felt it was too strong. He is interested in cognitive behavioral therapy and starting daily anxiety medication. Will follow-up in 4 weeks to evaluate the effectiveness of the medication. (6) Obese: Code(s): E66.9 - Obesity, unspecified Qualifiers: Body mass index: BMI 45.0-49.9 Obesity classification: adult class 3 (BMI >= 40) Obesity type: due to excess calories Serious obesity comorbidity presence: with serious comorbidity Qualified Code(s): E66.01 - Morbid (severe) obesity due to excess calories; Z68.42 - Body mass index [BMI] 45.0-49.9, adult Plan: Patient does understand his BMI is over 40 will continue to work on better eating habits and increasing his physical activity. Again interested in going to the bariatric surgery program. (7) Hypercholesterolemia: Code(s): E78.00 - Pure hypercholesterolemia, unspecified Plan: Patient's most recent lipid panel showing elevated total cholesterol and LDL. Has been started on statin therapy. Will recheck lipid panel to ensure values of normalizing. Will consider increasing potency statin if LDL above on 100 Orders: Orders Comprehensive [place]. Panel Fast Today E78.00 - Pure hypercholesterolemia, unspecified Prostate Specific Antigen Scr Today E78.00 - Pure hypercholesterolemia, unspecified, Z12.5 - Encounter for screening for malignant neoplasm of prostate AMB Hemoglobin A1c Today E11.9 - Type 2 diabetes mellitus without complications Influenza [id number] Immunization Today Z23 - Encounter for immunization Lipid Panel Today E78.00 - Pure hypercholesterolemia, unspecified Microalbumin, Random (w Creat) Today I10 - Essential (primary) hypertension Pneumococcal 20 Immunization Today F41.1 - Generalized anxiety disorder, Z23 - Encounter for immunization Referrals Ophthalmology Referral E11.65 - Type 2 diabetes mellitus with hyperglycemia Bariatric Surgery Referral E66.01 - Morbid (severe) obesity due to excess calories, Z68.42 - Body mass index [BMI] 45.0-49.9, adult Counseling Referral F41.1 - Generalized anxiety disorder Medications: New sertraline 50 mg PO DAILY 30 tabs 3RF 30 days F41.1 - Generalized anxiety disorder lisinopril 5 mg PO DAILY 90 tabs 1RF 90 days I10 - Essential (primary) hypertension Changed From insulin glargine (Lantus Solostar U-100 Insulin) 20 units (0.2 mL) subcut QPM 30 days 6 mL 0RF E11.65 - Type 2 diabetes mellitus with hyperglycemia To insulin glargine (Lantus Solostar U-100 Insulin) 36 units subcut QPM E11.65 - Type 2 diabetes mellitus with hyperglycemia Refilled atorvastatin 20 mg PO BEDTIME 90 tabs 1RF 90 days Discontinued lisinopril Discontinued Reason: Doctor's Order 5 mg PO DAILY 90 days 90 tabs 1RF E11.65 - Type 2 diabetes mellitus with hyperglycemia Coding Level of Care Code Est Pt [facility] [id number]) Diagnoses Annual physical exam Z00.00 Type 2 diabetes mellitus with hyperglycemia, without long-term current use of insulin E11.65 Diabetes mellitus complication status: with hyperglycemia Diabetes mellitus long-term insulin use: without supervisor billposting use Diabetes mellitus type: type 2 Morbid obesity E66.01 Primary hypertension I10 Hypertension type: primary hypertension OMAR (generalized anxiety disorder) F41.1 Class 3 severe obesity due to excess calories with serious comorbidity and body mass index (BMI) of 45.0 to 49.9 in adult E66.01; Z68.42 Body mass index: BMI 45.0-49.9 Obesity classification: adult class 3 (BMI >= 40) Obesity type: due to excess calories Serious obesity comorbidity presence: with serious comorbidity Hypercholesterolemia E78.00 Additional Codes OMAR-7 Assessment Billing - OMAR-7 Assessment Tool: OMAR-7 Assessment [id number] ([id number])
== END 2023-07-07 12:00 | disposition home or self-care (01) ==
PROVIDERS: PCP Physician Assistant; Visit Provider Physician Assistant
DX: Z00.00 Encounter for general adult medical examination without abnormal findings (principal); E11.65 Type 2 diabetes mellitus with hyperglycemia; E66.01 Morbid (severe) obesity due to excess calories; Z23 Encounter for immunization; Z68.42 Body mass index [BMI] 45.0-49.9, adult; I10 Essential (primary) hypertension; F41.1 Generalized anxiety disorder; E78.00 Pure hypercholesterolemia, unspecified
CPT/HCPCS: 83036; 90471; 90472; 90677; 90686; 99396

== ENCOUNTER 2023-08-05 14:08 | Outpatient (AMB) | payer OTHER, SELFPAY ==
--- NOTE | 2023-08-05 14:16 | MHC.PC.OV ---
Vital Signs 08/05/23 14:17 Height 5 ft 9 in Weight 302 lb 4 oz BMI 44.6 BP 126/76 Blood Pressure Location Lt brachial Position Sitting Pulse 86 Pulse Source Pulse Oximeter Pulse Oximetry (%) 97 Oxygen Delivery Method Room Air Intake Visit Reasons: f/u Anxiety med Liability Claims Representative Required: No Accompanied by: Self / Same As Patient Allergies No Known Allergies Allergy (Verified 08/05/23 14:38) Medication List - Last Reconciled 08/05/23 by Lee Díaz PA-C atorvastatin 20 mg PO BEDTIME 90 days bisacodyl (Gentle Laxative (bisacodyl)) 10 mg [place] DAILY PRN Brace,wrist (Wrist Brace - one) Left wrist brace sized to fit calcium polycarbophil (Fiber Laxative (calcium polycarbophil)) 1,250 mg (2 x 625 mg) PO DAILY PRN 30 days docusate sodium (Colace) 200 mg (2 x 100 mg) PO BEDTIME insulin glargine (Lantus Solostar U-100 Insulin) 36 units subcut QPM lisinopril 5 mg PO DAILY 90 days meloxicam 15 mg PO DAILY 30 days metformin 1,000 mg PO BID 30 days pen needle, diabetic (BD Ultra-Fine Carin Pen Needle) As directed polyethylene glycol 3350 (Miralax) 17 grams PO DAILY semaglutide 0.25 mg (0.368 mL) subcut QWEEK sertraline 50 mg PO DAILY 30 days Tobacco use date assessed: 08/05/23 HPI f/u Anxiety med HPI Details Patient is a 48-year-old male here today for follow-up visit. ?Patient has a past medical history significant for type 2 diabetes, morbid obesity, hyperlipidemia, Fatty liver , and obstructive sleep apnea. Today following up on his anxiety. At last visit we started SSRI therapy and he reports he feels much better with his anxiety. He would like to stay on this medication for now. CHRONIC MEDICAL CONDITIONS--> . DMII: Patient's type 2 diabetes suboptimally controlled, today's A1c a bit better at 9.6. Currently on high dose of metformin He has establish care with an marketing finance manager and has been up titrating his long-acting insulin. Also started on Ozempic and has lost a few lb. .. Hyperlipidemia: Most recent fasting lipid panel showing very elevated total cholesterol and LDL. Has been started on statin therapy and will recheck lipid panel in the next 3 months with goal LDL to be below 100 .. Carpal tunnel syndrome: Has followed by [facility]. He is dissipating surgery though needs to get his A1c below 8. Has been working glycemic control . [facility] Medical History Pre-op evaluation Trapezius muscle strain Numbness and tingling in left hand Right knee pain Bilateral anterior knee pain COVID-19 Balanitis Hand pain Morbid obesity Acid reflux Hx of diabetes mellitus Surgical History No pertinent past surgical history Family History Mother Heart problem Hypertension Father No problems noted. Daughter No problems noted. Daughter No problems noted. Social History Housing: Apartment Alcohol intake: current Alcohol intake frequency: holidays/special occasions only Patient Tobacco Use Status: Former Tobacco user Quit Date: 2020 Tobacco use type: Cigarette e-Cigarette/Vaping Use: Never Used service: No Current occupational status: unemployed Cognitive needs: No Hearing needs: No Vision needs: No Questionnaire Thrive Questionnaire Date Thrive assessed: 07/07/23 RONAL-7 AMB Questionnaire RONAL-7 Date RONAL - 7 assessed: 08/05/23 Feeling nervous, anxious, or on edge: 1 = Several days Not being able to stop or control worryin = Several days Worrying too much about different things: 1 = Several days Trouble relaxin = Not at all Being so restless that it is hard to sit still: 1 = Several days Becoming easily annoyed or irritable: 1 = Several days Feeling afraid as if something awful might happen: 0 = Not at all Total RONAL-7 score (0-4 normal; 5-9 mild; 10-14 moderate; 15-21 severe): 5 Source: Developed by Drs. Saúl Galvin, Tyra Gonsalez, Farzad Veronica and colleagues, with an educational julia from [employer] RONAL-7 Assessment Billing RONAL-7 Assessment Tool: RONAL-7 Assessment 81012 Review of Systems Const Denies headache(s) Eyes Denies loss of vision ENT Denies vertigo, Denies dizziness, Denies headache(s) and Denies sore throat Card Denies chest pain, Denies leg edema and Denies lightheadedness Resp Denies cough, Denies hemoptysis and Denies wheezing GI Denies abdominal pain, Denies melena, Denies constipation, Denies diarrhea and Denies vomiting Denies dysuria, Denies urinary frequency and Denies urinary urgency Musc Denies arthralgias, Denies joint swelling, Denies numbness and Denies tingling Neuro Denies Abnormal speech present, Denies behavioral changes, Denies vertigo, Denies dizziness, Denies headache(s), Denies loss of vision, Denies memory loss, Denies numbness and Denies tingling Psych Denies anxiety, Denies behavioral changes, Denies depression, Denies memory loss and Denies panic attacks Hugo/Lymph Denies easy bleeding and Denies easy bruising Aller/Immun Denies wheezing Physical exam (Primary Care) Vital Signs: Last Vital Signs Pulse 86 08/05/23 14:17 BP 126/76 08/05/23 14:17 Pulse Ox 97 08/05/23 14:17 Oxygen Delivery Method Room Air 08/05/23 14:17 BMI result Body Mass Index 44.6 Tobacco/Smoking Status: Tobacco use Status Tobacco use date assessed 08/05/23 08/05/23 14:22 Patient Tobacco Use Status Former Tobacco user 08/05/23 14:16 Tobacco use type Cigarette 08/05/23 14:16 e-Cigarette/Vaping Use Never Used 08/05/23 14:16 Thrive Assessment: Date of Thrive Assessment Date Thrive assessed 07/07/23 08/05/23 14:16 Const General: healthy appearing, no acute distress, alert and awake Nutritional Appearance: well nourished Orientation/consciousness: oriented to person, oriented to place and oriented to time HENMT Ears: TM's normal bilaterally General nose exam: Normal nasal mucous membranes and turbinates present Eyes Conjunctivae: conjunctivae normal Sclerae: sclerae normal Pupils: Equal, round and reactive pupils present Neck Neck: Yes no lymphadenopathy and Yes no JVD Thyroid: Thyroid normal Carotids: no bruits Resp Effort & Inspection: normal respiratory effort and not tachypneic Auscultation: no crackles, no rales, no rhonchi and no wheezes Cardio Rate: regular rate Rhythm: regular rhythm Heart sounds: no murmurs and normal S1 and S2 GI Palpation (GI): Soft to palpation, nontender, no hepatomegaly and no splenomegaly Auscultation: normal bowel sounds Skin General skin exam: no rashes or lesions noted and dry skin Neuro General: oriented to person, oriented to place and oriented to time Cranial nerves: Yes Equal, round and reactive pupils present Speech: No Abnormal speech present Gait exam (Neuro): Normal gait present Motor exam (neuro): no tremor noted Extrem Right upper extremity: full ROM Left upper extremity: full ROM Right lower extremity: full ROM; no edema Left lower extremity: full ROM; no edema Psych Mental Status: mental status grossly normal Speech and movement: Normal speech and movement present Affect: normal affect Attitude: cooperative Thought process: Normal thought process present Assessment and Plan Assessment & Plan (1) RONAL (generalized anxiety disorder): Code(s): F41.1 - Generalized anxiety disorder Plan: Patient reports feeling much better. Ronal 7 score mildly positive. He would like to continue sertraline 50 mg. Has lost a few lb since last office visit. Coding Level of Care Code Est Pt Level 3 (42382) Diagnoses RONAL (generalized anxiety disorder) F41.1 Additional Codes RONAL-7 Assessment Billing - RONAL-7 Assessment Tool: RONAL-7 Assessment 93112 ([id number])
[2023-08-05 14:17] VITALS: BP 126/76; PULSE 86; O2SAT 97; BMI 44.6
== END 2023-08-05 14:47 | disposition home or self-care (01) ==
PROVIDERS: PCP Physician Assistant; Visit Provider Physician Assistant
DX: F41.1 Generalized anxiety disorder (principal)
CPT/HCPCS: 99213

== ENCOUNTER → 2023-08-20 12:40 | Outpatient (BNVA) | payer OTHER, SELFPAY | PROVIDERS: PCP Physician Assistant; Visit Provider Physician Assistant Surgical ==

== ENCOUNTER 2023-08-31 14:28 | Outpatient (AMB) | payer OTHER, SELFPAY ==
--- NOTE | 2023-08-31 14:33 | A.OFFVIS_ITS ---
Intake Vital Signs 08/31/23 14:37 Height 5 ft 8.5 in Weight 304 lb BMI 45.5 BP 142/80 H Blood Pressure Location Lt brachial Position Sitting Pulse 90 Intake Visit Reasons: follow up Intake Note: Patient follow up for Anal fistule and stool results and 2nd pre colonoscopy screening. Patient denies any GI issues. Branch Operations Coordinator Required: No Accompanied by: Spouse Allergies No Known Allergies Allergy (Verified 08/31/23 14:33) Medication List - Last Reconciled 08/31/23 by Edna Maciel PA-C atorvastatin 20 mg PO BEDTIME 90 days bisacodyl (Gentle Laxative (bisacodyl)) 10 mg [place] DAILY PRN Brace,wrist (Wrist Brace - one) Left wrist brace sized to fit calcium polycarbophil (Fiber Laxative (calcium polycarbophil)) 1,250 mg (2 x 625 mg) PO DAILY PRN 30 days docusate sodium (Colace) 200 mg (2 x 100 mg) PO BEDTIME insulin glargine (Lantus Solostar U-100 Insulin) 36 units subcut QPM lisinopril 5 mg PO DAILY 90 days meloxicam 15 mg PO DAILY 30 days metformin 1,000 mg PO BID 30 days pen needle, diabetic (BD Ultra-Fine Carin Pen Needle) As directed polyethylene glycol 3350 (Miralax) 17 grams PO DAILY semaglutide 0.25 mg (0.368 mL) subcut QWEEK sertraline 50 mg PO DAILY 30 days HPI HPI Comments History of Present Illness Details 48-year-old male personal history colon polyps, anal fissure follows up for chronic constipation He is due for polyp surveillance colonoscopy however we want to be sure he would have adequate prep He presents today- present- following bowel regimen- with good response- Q 1-2 days- no hard stool He wants to have colonoscopy- Reviewed labs-no H pylori No N/V/D/ abdomianl apin- fever or chills PFSH Medical History Pre-op evaluation Trapezius muscle strain Numbness and tingling in left hand Right knee pain Bilateral anterior knee pain COVID-19 Balanitis Hand pain Morbid obesity Acid reflux Hx of diabetes mellitus Surgical History No pertinent past surgical history Family History Mother Heart problem Hypertension Father No problems noted. Daughter No problems noted. Daughter No problems noted. Social History Housing: Apartment Alcohol intake: current Alcohol intake frequency: holidays/special occasions only Patient Tobacco Use Status: Former Tobacco user Quit Date: 2020 Tobacco use type: Cigarette e-Cigarette/Vaping Use: Never Used service: No Current occupational status: unemployed Cognitive needs: No Hearing needs: No Vision needs: No Review of Systems Const All systems reviewed & are unremarkable except as noted in HPI and below Physical Exam Vital Signs: Last Vital Signs Pulse 90 08/31/23 14:37 BP 142/80 H 08/31/23 14:37 BMI result Body Mass Index 45.5 Const General: cooperative, healthy appearing and comfortable Orientation/consciousness: patient oriented x3 Limitations: language barrier Resp Effort & Inspection: normal respiratory effort and able to speak in complete sentences Auscultation: clear to auscultation bilaterally, no rales, no rhonchi and no wheezes Cardio Rate: regular rate Rhythm: regular rhythm Heart sounds: S1 normal heart sound present and S2 normal heart sound present GI Inspection: Yes obesity Palpation (GI): Soft to palpation and Tenderness to palpation present (GI) Neuro General: patient oriented x3 Extrem General: Yes full ROM Psych Speech and movement: Clear speech present Affect: normal affect Attitude: cooperative Thought process: Normal thought process present Thought content: Normal thought content present Assessment & Plan Assessment & Plan (1) History of colon polyps: Comment: colonoscopy-ext prep Code(s): Z86.010 - Personal history of colonic polyps Plan: Polyp surveillance colonoscopy Discussed procedure, rare risks need for escort (2) Chronic constipation: Comment: Reviewed diet encouraged high-fiber Better glucose control Consistent bowel regimen Code(s): K59.09 - Other constipation (3) Anal fissure: Comment: resolved Code(s): K60.2 - Anal fissure, unspecified Plan: resolved Plan polyp surveillance colonoscopy MG prep miralax 1-2 times QD x 1 wk< prep day Ozempic d/c 1 full week before 2 dose insulin pm day before- omit metformin no dm Orders: Orders Colonoscopy - GI Use Only 08/31/23 K59.09 - Other constipation, K60.2 - Anal fissure, unspecified, Z86.010 - Personal history of colonic polyps Medications: New polyethylene glycol 3350 (Miralax) Take as directed by mouth the day before your procedure. 238 grams PO ONCE 1 day PRN 238 grams 0RF laxative effect bisacodyl (Dulcolax (bisacodyl)) Day before procedure @ 12 noon Take 4 tablets by mouth followed by large glass of water 20 mg (4 x 5 mg) PO ONCE 1 day PRN 4 tabs 0RF colonoscopy prep Z12.11 - Encounter for screening for malignant neoplasm of colon Patient Instructions: polyp surveillance colonoscopy MG prep, reviewed literature given miralax 1-2 times QD x 1 wk< prep day Ozempic d/c 1 full week before( Saturdays) 1/2 dose insulin pm day before- omit metformin no dm Coding Level of Care Code Est Pt Level 3 (60420) Diagnoses History of colon polyps Z86.010 Chronic constipation K59.09 Anal fissure K60.2 Time Spent (min) 30
[2023-08-31 14:37] VITALS: BP 142/80; PULSE 90; BMI 45.5
== END 2023-08-31 15:15 | disposition home or self-care (01) ==
PROVIDERS: PCP Physician Assistant; Visit Provider Physician Assistant
DX: Z86.010 Personal history of colon polyps (principal); K59.09 Other constipation; K60.2 Anal fissure, unspecified
CPT/HCPCS: 99213

== ENCOUNTER → 2023-08-31 14:28 | Outpatient (BNVA) | payer OTHER, SELFPAY | PROVIDERS: PCP Physician Assistant; Visit Provider Physician Assistant | DX: K59.09 Other constipation (principal); K60.2 Anal fissure, unspecified; Z86.010 Personal history of colon polyps | CPT/HCPCS: 99212 ==

== ENCOUNTER 2023-10-08 08:12 | Outpatient (AMB) | payer OTHER, SELFPAY ==
--- NOTE | 2023-10-08 13:09 | MHC.OFFVISWM ---
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* Allergies No Known Allergies Allergy (Verified 10/08/23 13:09) Medication List - Last Reconciled 10/08/23 by Josh Osman MD atorvastatin 20 mg PO BEDTIME 90 days Brace,wrist (Wrist Brace - one) Left wrist brace sized to fit insulin glargine (Lantus Solostar U-100 Insulin) 36 units subcut QPM lisinopril 5 mg PO DAILY 90 days metformin 1,000 mg PO BID 30 days pen needle, diabetic (BD Ultra-Fine Carin Pen Needle) As directed semaglutide 0.25 mg (0.368 mL) subcut QWEEK sertraline 50 mg PO DAILY 30 days HPI HPI [employer] HEALTH CLINICAL SUPERVISOR SW[employer] BMI 45.6 *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*: Details: Start time: 1pm, End time: 1.50pm ?I spent 45 minutes speaking with the patient on the phone plus an additional 5 minutes reviewing and updating records for a total of 50 minutes HPI Comments Details: Previous weight loss efforts: Ozempic (lost 24lbs) Wakes up: 8am, Sleeps: 12am Breakfast: skips Lunch: 12pm (sandwich, eggs) Dinner: 4pm (meat, rice, beans) Snacks: 6pm (sandwich) Exercise: has treadmill Fluids: Coffee: none, Tea: none, soda: Coke zero, juice: none, ETOH: none PFSH Medical History (Updated 10/08/23 @ 13:21 by Josh Osman MD) Morbid obesity Pre-op evaluation Trapezius muscle strain Numbness and tingling in left hand Right knee pain Bilateral anterior knee pain COVID-19 Balanitis Hand pain Acid reflux Hx of diabetes mellitus Surgical History (Updated 09/01/23 @ 09:21 by Edna Maciel PA-C) No pertinent past surgical history Family History Mother Heart problem Hypertension Father No problems noted. Daughter No problems noted. Daughter No problems noted. Social History Housing: Apartment Alcohol intake: current Alcohol intake frequency: holidays/special occasions only Patient Tobacco Use Status: Former Tobacco user Quit Date: 2020 Tobacco use type: Cigarette e-Cigarette/Vaping Use: Never Used service: No Current occupational status: unemployed Cognitive needs: No Hearing needs: No Vision needs: No Telehealth Telehealth Telehealth Platform: Telephone Location of provider rendering services: practice address Location of patient: address on file Patient Identification confirmed using: Name, : Yes Telehealth method: voice only Patient verbally consented to treatment: Yes Patient verbally consented to billing insurance company: Yes Patient informed of any privacy concerns related to visit: Yes Minutes spent on Phone/Video with Pt.: 50 Assessment & Plan Assessment & Plan (1) Morbid obesity: Code(s): E66.01 - Morbid (severe) obesity due to excess calories Category: Medical Plan: 1.? Plan for lap sleeve gastrectomy. If diaphragmatic or ventral hernias are present at time of surgery, these will be repaired laparoscopically as well. Risks and complications were discussed in detail including possible conversion to an open procedure, anastomotic leak, bleeding requiring transfusion, small bowel obstruction, , DVT and pulmonary embolism, cardiac, or pulmonary complications, as nursing home complications such as anastomotic ulcer, insufficient weight loss and vitamin deficiencies. I emphasized the importance of close follow-up, adherence to instructions and good communication. 2. Nutritional counseling. Start with 2 CELEBRATE REBUILD protein (buy at [facility]'s [employer] shop) shakes (ONE scoop EACH in 8oz low fat unsweetened almond milk each) at 9am-11am and 12pm-2pm, 1 protein bar (CELEBRATE protein bars, buy at [facility]'s [employer] [facility]) at 3pm-5pm, dinner at 6pm (10 forks of protein and 10 forks of salad/vegetables) AND one more protein bar after dinner at 8pm-10pm. If hungry, please have another HALF protein bar at 11pm-12am. So you do 2 protein shakes, 2.5 protein bars and one meal per day. Meal to include lean meat (beef, fish, pork, turkey, chicken), or burmese yogurt, or egg whites, or beans with a salad with olive oil and fruits (berries, pears, apples, kiwi). Avoid salt, breads, potatoes, rice, pasta, desserts. 3. Each shake would be drunk slowly, like coffee in a period of 2 hours. 4. Cut each bar in 4 pieces and eat each piece in 30min ?to make each bar last 2 hours. 5. I emphasized the importance of measuring accurately the food portion and measure it when serving the food in plate 6. The meal portions include 10 full-size forks of meat and 10 full-size forks of salad. You always eat the meat portion but you can replace up to 5 forks for salad/vegetables with rice, potatoes or pasta, or a fruit ?if you like. The less you do it the better weight loss will be. 7. One full-size fork is what it can be scooped on the fork without falling aside and not what can be bit with the fork. Use regular forks like those you find in a typical restaurant. 8.? Please send me weight measurements as soon as possible and then once a week. Always include your diet and exercise plan. 9. Start treadmill with an incline of 2.0 and speed of 3.0. Increase incline by 1 every 3 min to a max incline of 8.0, stay 3min at 8.0 and then return to 2.0 and repeat same steps until calorie goal is met. Goal is to burn 2000 calories per week on exercise, which means either 300 calories daily, or 400 calories 5 days per week, or 500 calories 4 days per week, or 650 calories 3 days per week. 10.? Goal is to lose at least 1.5-2lbs per week 11. Goal to lose 10% of your weight before surgery, which is about 30lbs. Ultimate weight goal: 274lbs before surgery 12. Please follow the diet plan exactly without any change. If you don't like something about the plan or you feel hungry you need to communicate with me so I can help you revise the plan. You should not change the plan yourself. Orders: Orders Insulin Today E11.65 - Type 2 diabetes mellitus with hyperglycemia, E66.01 - Morbid (severe) obesity due to excess calories, E78.00 - Pure hypercholesterolemia, unspecified, G47.33 - Obstructive sleep apnea (adult) (pediatric), I10 - Essential (primary) hypertension H Pylori Breath Test Today E11.65 - Type 2 diabetes mellitus with hyperglycemia, E66.01 - Morbid (severe) obesity due to excess calories, E78.00 - Pure hypercholesterolemia, unspecified, G47.33 - Obstructive sleep apnea (adult) (pediatric), I10 - Essential (primary) hypertension Complete Blood Count Auto Diff Today E11.65 - Type 2 diabetes mellitus with hyperglycemia, E66.01 - Morbid (severe) obesity due to excess calories, E78.00 - Pure hypercholesterolemia, unspecified, G47.33 - Obstructive sleep apnea (adult) (pediatric), I10 - Essential (primary) hypertension Lipid Panel Today E11.65 - Type 2 diabetes mellitus with hyperglycemia, E66.01 - Morbid (severe) obesity due to excess calories, E78.00 - Pure hypercholesterolemia, unspecified, G47.33 - Obstructive sleep apnea (adult) (pediatric), I10 - Essential (primary) hypertension Comprehensive Met. Panel Today E11.65 - Type 2 diabetes mellitus with hyperglycemia, E66.01 - Morbid (severe) obesity due to excess calories, E78.00 - Pure hypercholesterolemia, unspecified, G47.33 - Obstructive sleep apnea (adult) (pediatric), I10 - Essential (primary) hypertension Vitamin B12 and Folate Today E11.65 - Type 2 diabetes mellitus with hyperglycemia, E66.01 - Morbid (severe) obesity due to excess calories, E78.00 - Pure hypercholesterolemia, unspecified, G47.33 - Obstructive sleep apnea (adult) (pediatric), I10 - Essential (primary) hypertension Zinc Today E11.65 - Type 2 diabetes mellitus with hyperglycemia, E66.01 - Morbid (severe) obesity due to excess calories, E78.00 - Pure hypercholesterolemia, unspecified, G47.33 - Obstructive sleep apnea (adult) (pediatric), I10 - Essential (primary) hypertension C Reactive Protein Today E11.65 - Type 2 diabetes mellitus with hyperglycemia, E66.01 - Morbid (severe) obesity due to excess calories, E78.00 - Pure hypercholesterolemia, unspecified, G47.33 - Obstructive sleep apnea (adult) (pediatric), I10 - Essential (primary) hypertension Vitamin B1 Today E11.65 - Type 2 diabetes mellitus with hyperglycemia, E66.01 - Morbid (severe) obesity due to excess calories, E78.00 - Pure hypercholesterolemia, unspecified, G47.33 - Obstructive sleep apnea (adult) (pediatric), I10 - Essential (primary) hypertension Vitamin A Today E11.65 - Type 2 diabetes mellitus with hyperglycemia, E66.01 - Morbid (severe) obesity due to excess calories, E78.00 - Pure hypercholesterolemia, unspecified, G47.33 - Obstructive sleep apnea (adult) (pediatric), I10 - Essential (primary) hypertension TSH reflex Free T4 Today E11.65 - Type 2 diabetes mellitus with hyperglycemia, E66.01 - Morbid (severe) obesity due to excess calories, E78.00 - Pure hypercholesterolemia, unspecified, G47.33 - Obstructive sleep apnea (adult) (pediatric), I10 - Essential (primary) hypertension Vitamin D 25-OH Total Today E11.65 - Type 2 diabetes mellitus with hyperglycemia, E66.01 - Morbid (severe) obesity due to excess calories, E78.00 - Pure hypercholesterolemia, unspecified, G47.33 - Obstructive sleep apnea (adult) (pediatric), I10 - Essential (primary) hypertension US abdomen comp w elastography Today E11.65 - Type 2 diabetes mellitus with hyperglycemia, E66.01 - Morbid (severe) obesity due to excess calories, E78.00 - Pure hypercholesterolemia, unspecified, G47.33 - Obstructive sleep apnea (adult) (pediatric), I10 - Essential (primary) hypertension XR chest 2V Today E11.65 - Type 2 diabetes mellitus with hyperglycemia, E66.01 - Morbid (severe) obesity due to excess calories, E78.00 - Pure hypercholesterolemia, unspecified, G47.33 - Obstructive sleep apnea (adult) (pediatric), I10 - Essential (primary) hypertension Hemoglobin A1c Today E11.65 - Type 2 diabetes mellitus with hyperglycemia, E66.01 - Morbid (severe) obesity due to excess calories, E78.00 - Pure hypercholesterolemia, unspecified, G47.33 - Obstructive sleep apnea (adult) (pediatric), I10 - Essential (primary) hypertension IRON PROFILE Today E11.65 - Type 2 diabetes mellitus with hyperglycemia, E66.01 - Morbid (severe) obesity due to excess calories, E78.00 - Pure hypercholesterolemia, unspecified, G47.33 - Obstructive sleep apnea (adult) (pediatric), I10 - Essential (primary) hypertension Ferritin Today E11.65 - Type 2 diabetes mellitus with hyperglycemia, E66.01 - Morbid (severe) obesity due to excess calories, E78.00 - Pure hypercholesterolemia, unspecified, G47.33 - Obstructive sleep apnea (adult) (pediatric), I10 - Essential (primary) hypertension ECG 12 lead EKG Today E11.65 - Type 2 diabetes mellitus with hyperglycemia, E66.01 - Morbid (severe) obesity due to excess calories, E78.00 - Pure hypercholesterolemia, unspecified, G47.33 - Obstructive sleep apnea (adult) (pediatric), I10 - Essential (primary) hypertension FL upper GI w air Today E11.65 - Type 2 diabetes mellitus with hyperglycemia, E66.01 - Morbid (severe) obesity due to excess calories, E78.00 - Pure hypercholesterolemia, unspecified, G47.33 - Obstructive sleep apnea (adult) (pediatric), I10 - Essential (primary) hypertension Referrals Behavioral Health Referral E11.65 - Type 2 diabetes mellitus with hyperglycemia, E66.01 - Morbid (severe) obesity due to excess calories, E78.00 - Pure hypercholesterolemia, unspecified, G47.33 - Obstructive sleep apnea (adult) (pediatric), I10 - Essential (primary) hypertension
[2023-10-08 13:24] VITALS: BMI 45.5
== END 2023-10-08 13:55 | disposition home or self-care (01) ==
LOC: HO.HBS 08:12
PROVIDERS: PCP Physician Assistant; Visit Provider Surgery
DX: E66.01 Morbid (severe) obesity due to excess calories (principal)
CPT/HCPCS: 99204

== ENCOUNTER → 2023-10-08 08:12 | Outpatient (BNVA) | payer OTHER, SELFPAY | PROVIDERS: PCP Physician Assistant; Visit Provider Surgery ==

== ENCOUNTER 2024-02-09 15:22 | Emergency (ER) | payer OTHER, SELFPAY ==
[2024-02-09 16:04] VITALS: BP 145/74; PULSE 84; RESP 16; TEMP 36.4; O2SAT 100; BMI 46.5
--- NOTE | 2024-02-09 16:24 | ED_ITS ---
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 Patient states that over the last 8 days he has had increased swelling in his right ear. Patient denies any dizziness, lightheadedness, abdominal pain, nausea, vomiting, fever, chills, blurry vision, double vision, loss of vision, chest pain, difficulty breathing, shortness of breath, back pain, night sweats, pain with urination, increased urinary frequency, increased urinary urgency, blood in his urine or stool, syncope or a near syncopal episode, recent trauma or falls, bowel incontinence, bladder incontinence, or any other complaints at this time. Location: right ear Related Data Home Medications ?Medication ?Instructions ?Recorded ?Confirmed insulin glargine 100 unit/mL (3 36 unit subcut QPM 07/07/23 10/08/23 mL) subcutaneous pen (Lantus Solostar U-100 Insulin) Previous Rx's ?Medication ?Instructions ?Recorded pen needle, diabetic 32 gauge x #50 ea 01/31/23 5/32 (BD Ultra-Fine Carin Pen Needle) Brace,wrist (Wrist Brace - one) #1 ea 02/02/23 semaglutide 0.25 mg or 0.5 mg (2 0.25 mg (0.368 mL) subcut QWEEK #3 02/26/23 mg/3 mL) subcutaneous pen injector mL metformin 1,000 mg tablet 1,000 mg PO BID 30 days #60 tabs 05/26/23 atorvastatin 20 mg tablet 20 mg PO BEDTIME 90 days #90 tabs 07/07/23 lisinopril 5 mg tablet 5 mg PO DAILY 90 days #90 tabs 07/07/23 sertraline 50 mg tablet 50 mg PO DAILY 30 days #30 tabs 11/04/23 cephalexin 500 mg capsule 500 mg PO Q6H 7 days #28 caps 02/09/24 doxycycline hyclate 100 mg tablet 100 mg PO BID 7 days #14 tabs 02/09/24 Allergies Allergy/AdvReac Type Severity Reaction Status Date / Time No Known Allergies Allergy Verified 02/09/24 16:10 Review of Systems 2 Constitutional: Constitutional: Reports no additional constitutional complaints, Denies chills, Denies fever(s) and Denies night sweats Eyes: Eyes: Reports no additional eye complaints, Denies blurry vision, Denies change in vision, Denies diplopia, Denies eye discharge, Denies loss of vision and Denies eye pain ENT: Denies dizziness Comments: swelling to the right ear Cardiovascular: Cardiovascular: Reports no additional cardiovascular complaints, Denies chest pain, Denies lightheadedness, Denies Loss of Consciousness and Denies dyspnea Respiratory: Respiratory: Reports no additional respiratory complaints and Denies dyspnea Gastrointestinal: Gastrointestinal: Reports no additional gastrointestinal complaints, Denies abdominal pain, Denies melena, Denies hematochezia, Denies change in bowel habits and Denies change in stool character Genitourinary: Genitourinary: Reports no additional male genitourinary complaints, Denies hematuria, Denies oliguria, Denies difficulty urinating, Denies dysuria, Denies urinary frequency, Denies urinary hesitancy, Denies urinary incontinence and Denies urinary urgency Musculoskeletal: Musculoskeletal: Reports no additional musculoskeletal complaints, Denies numbness and Denies tingling Neurologic: Denies dizziness, Denies loss of vision, Denies numbness and Denies tingling Psychiatric: Psychiatric: Reports no additional psychiatric complaints Endocrine: Endocrine: Reports no additional endocrine complaints Hematologic/Lymphatic: Hematologic/Lymphatic: Reports no additional hematologic/lymphatic complaints Allergic/Immunologic: Allergic/Immunologic: Reports no additional allergic/immunologic complaints PMFSH Past Medical History Attestation statement: The following information was validated with the patient. Source: old records reviewed and nursing notes reviewed Medical History Morbid obesity Pre-op evaluation Trapezius muscle strain Numbness and tingling in left hand Right knee pain Bilateral anterior knee pain COVID-19 Balanitis Hand pain Acid reflux Hx of diabetes mellitus Surgical History No pertinent past surgical history Family History Family History Mother Heart problem Hypertension Father No problems noted. Daughter No problems noted. Daughter No problems noted. Social History Social History Housing: Apartment Alcohol intake: current Alcohol intake frequency: holidays/special occasions only Patient Tobacco Use Status: Former Tobacco user Tobacco use type: Cigarette e-Cigarette/Vaping Use: Never Used Advance Directives: No Advance Directives Information Provided: No Do you have a plan to hurt others: No Plan service: No Current occupational status: unemployed Cognitive needs: No Hearing needs: No Vision needs: No Physical Exam 2 Vital Signs: Vital Signs: Last Vital Signs Temp 98.2 F 02/09/24 17:52 Pulse 69 02/09/24 17:52 Resp 18 02/09/24 17:52 BP 136/70 02/09/24 17:52 Pulse Ox 99 02/09/24 17:52 O2 Del Method Room Air 02/09/24 17:52 BMI result Body Mass Index 46.5 Const: General: cooperative, no acute distress, alert and awake Nutritional Appearance: well nourished Orientation/consciousness: patient oriented x3 Limitations: no limitations HEENT: Head: Yes normal to inspection and Yes atraumatic Ears: hearing grossly normal bilaterally Outer ear/TM images: 1. swelling present with minimal erythema and warmth General nose exam: Normal external nose present, no nasal discharge noted and no epistaxis Face and sinus: Yes normal facial exam, No abrasion and No laceration Mouth: Normal oral and palatal mucosa present, no drooling and no muffled voice Eyes: General: appearance normal, both eyes and all related structures P eriorbital: periorbital findings normal Eyelids: Yes eyelids normal C onjunctivae: conjunctivae normal Pupils: Equal, round and reactive pupils present EOM: EOMs intact bilaterally Neck: Neck: Yes normal visual inspection, Yes full ROM and Yes no lymphadenopathy Chest: Chest palpation & inspection: normal inspection of the chest Resp: Effort & Inspection: normal respiratory effort and able to speak in complete sentences GI: Inspection: Yes normal to inspection Neuro: General: patient oriented x3 and moves all extremities Cranial nerves: Yes Equal, round and reactive pupils present Cognition (Neuro): n ormal cognition Extrem: General: Yes normal to inspection, Yes full ROM and Yes capillary refill normal Psych: Appearance: grossly normal Mental Status: mental status grossly normal Affect: normal affect Attitude: cooperative Thought process: N ormal thought process present Thought content: Normal thought content present Insight: Good insight present (Psych) Course Course Course Narrative: This is an RME done by AYSHA Duvall: Additional HPI, ROS, PE not included below will be deferred to primary provider. 48-year-old male history of type 2 diabetes presenting with a painful lump in his right pinna. Patient denies fevers chills changes in his hearing. Denies recent illness. Appearance: Alert.? Oriented X3.? No acute cardiopulmonary distress distress.? Head: Normocephalic, atraumatic ENT: Moderately sized warm fluctuant mass to the right pinna. Right EAC hard to visualize no obvious edema erythema no discharge. Left external ear normal CVS: Pulses normal.? Respiratory: No respiratory distress.?? Skin: ? Normal skin color. Neuro: Oriented X 3.? Procedures Abscess I/D Site: other (ear) Side (if applicable): right Technique: needle aspiration Amount of fluid expressed (mL): 1 Sent for culture/gram staining?: No Irrigation: No Packing used?: none Medical Decision Making Medical Decision Making MDM Narrative: Patient is a 48 year old assigned male at with a history of DM, HTN, and OMAR presenting to the emergency department today with right ear swelling. Patient's physical exam showed significant swelling of the right upper ear. I explained my physical exam findings to the patient. I answered all questions asked by the patient. I attempted to needle aspirate the ear and only got a minimal amount of serous fluid, no pus. I stressed the importance of the patient taking his medication as directed (either prescribed or as the over the counter packaging recommends). I stressed the importance of the patient following up with his primary care provider. I stressed the importance of the patient returning to the emergency department immediately if his symptoms were to worsen or if he were to develop any dizziness, shortness of breath, difficulty breathing, chest pain, blurry vision, loss of vision, nausea, vomiting, abdominal pain, fever, chills, back pain, or any other complaints. Patient verbalized agreement and understanding with this treatment plan and discharge. Differential Diagnosis Differential Diagnoses: The differential diagnosis associated with the presentation includes Ear abscess Ear cellulitis Admission/Observation Consideration of admission/observation: Escalation of care including admission/observation considered Patient would have been admitted to the hospital had his work up had any findings where hospital admission was appropriate and his clinical presentation warranted hospital admission. Prescription Management I considered prescription management with: Antibiotic (patient prescribed antibiotics for right ear cellulitis) Chronic Conditions Patient?s care impacted by: Diabetes Discharge Plan Discharge Clinical Impression: Cellulitis Patient Disposition: Home, Self-Care Instructions: Cellulitis (DC) Additional Instructions: Follow up with your primary care provider. Return to the emergency department immediately if your symptoms worsen or if you develop any dizziness, shortness of breath, difficulty breathing, chest pain, blurry vision, loss of vision, nausea, vomiting, abdominal pain, fever, chills, back pain, or any other complaints. Erik?seguimiento?con mcneal m?dico de atenci?n primaria. Acuda inmediatamente al servicio de urgencias si nyla s?ntomas empeoran o si presenta falta de aliento, dificultad para respirar, dolor tor?cico, mareos, aturdimiento, dolor de espalda, dolor abdominal, fiebre, escalofr?os o cualquier otro s?ntoma. Prescriptions: New cephalexin 500 mg capsule 500 mg PO Q6H 7 Days Qty: 28 0RF doxycycline hyclate 100 mg tablet 100 mg PO BID 7 Days Qty: 14 0RF No Action (DME) pen needle, diabetic [BD Ultra-Fine Carin Pen Needle] 32 gauge x 5/32 needle See Rx Instructions .ROUTE .MEDSUPPLY Qty: 50 2RF Rx Instructions: As directed (DME) Wrist Brace - one Misc See Rx Instructions .Route Qty: 1 0RF Rx Instructions: Left wrist brace sized to fit metformin 1,000 mg tablet 1,000 mg PO BID 30 Days Qty: 60 3RF sertraline 50 mg tablet 50 mg PO DAILY 30 Days Qty: 30 3RF semaglutide 0.25 mg or 0.5 mg (2 mg/3 mL) pen injector 0.25 mg subcut QWEEK Qty: 3 3RF atorvastatin 20 mg tablet 20 mg PO BEDTIME 90 Days Qty: 90 1RF insulin glargine [Lantus Solostar U-100 Insulin] 100 unit/mL (3 mL) insulin pen 36 unit subcut QPM lisinopril 5 mg tablet 5 mg PO DAILY 90 Days Qty: 90 1RF Referrals: Lee Díaz PA-C [Primary Care Provider] - Stand Alone Forms: Work/School Release Interventions: ED Discharge Assessment Last Done: 02/09/24 17:52 Discharge Date/Time: 02/09/24 17:56 Print Language: [place]
[2024-02-09 17:52] VITALS: BP 136/70; PULSE 69; RESP 18; TEMP 36.8; O2SAT 99
== END 2024-02-09 17:56 | disposition home or self-care (01) ==
PROVIDERS: Emergency Provider Emergency Medicine; PCP Physician Assistant
DX: H60.11 Cellulitis of right external ear (principal); H93.8X1 Other specified disorders of right ear; I10 Essential (primary) hypertension; E11.9 Type 2 diabetes mellitus without complications
CPT/HCPCS: 10060; 99282; 99284

== ENCOUNTER 2024-02-13 14:36 | Emergency (ER) | payer OTHER, SELFPAY ==
[2024-02-13 15:12] VITALS: BP 116/67; PULSE 81; RESP 16; TEMP 36.9; O2SAT 97; BMI 48.2
--- NOTE | 2024-02-13 15:18 | ED_ITS ---
HPI - Headache General Chief Complaint: Upper Respiratory Symptoms Stated Complaint: Covid+ Time Seen by Provider: 02/13/24 15:18 Source: patient and family Mode of arrival: ambulatory Limitations: language barrier ([employer]deinig-speaking network support specialist utilized) History of Present Illness HPI Narrative: Patient is a 48-year-old male past medical history of diabetes, hypertension, anxiety presenting to emergency department for evaluation of a headache in the setting of COVID-19 infection. Diffuse Headache and myalgias began this morning, tested positive for COVID-19 at home. Took Tylenol 650 mg with only a little bit of relief. He presents with his spouse. She states no NSAIDs were given because she was told in the past that it is dangerous to take NSAIDs with the COVID-19 infection. He denies dizziness, lightheadedness, vision changes, neck pain, neck stiffness, chest pain, shortness of breath, difficulty breathing, nausea, vomiting, abdominal pain. Related Data Home Medications ?Medication ?Instructions ?Recorded ?Confirmed insulin glargine 100 unit/mL (3 36 unit subcut QPM 07/07/23 10/08/23 mL) subcutaneous pen (Lantus Solostar U-100 Insulin) Previous Rx's ?Medication ?Instructions ?Recorded pen needle, diabetic 32 gauge x #50 ea 01/31/23 (BD Ultra-Fine Carin Pen Needle) Brace,wrist (Wrist Brace - one) #1 ea 02/02/23 semaglutide 0.25 mg or 0.5 mg (2 0.25 mg (0.368 mL) subcut QWEEK #3 02/26/23 mg/3 mL) subcutaneous pen injector mL metformin 1,000 mg tablet 1,000 mg PO BID 30 days #60 tabs 05/26/23 atorvastatin 20 mg tablet 20 mg PO BEDTIME 90 days #90 tabs 07/07/23 sertraline 50 mg tablet 50 mg PO DAILY 30 days #30 tabs 11/04/23 cephalexin 500 mg capsule 500 mg PO Q6H 7 days #28 caps 02/09/24 doxycycline hyclate 100 mg tablet 100 mg PO BID 7 days #14 tabs 02/09/24 lisinopril 5 mg tablet 5 mg PO DAILY 90 days #90 tabs 02/11/24 Allergies Allergy/AdvReac Type Severity Reaction Status Date / Time No Known Allergies Allergy Verified 02/13/24 15:16 Review of Systems Review of Systems: Yes all other systems are reviewed and are negative [facility] Past Medical History Attestation statement: The following information was validated with the patient. Source: old records reviewed Medical History Morbid obesity Pre-op evaluation Trapezius muscle strain Numbness and tingling in left hand Right knee pain Bilateral anterior knee pain COVID-19 Balanitis Hand pain Acid reflux Hx of diabetes mellitus Surgical History No pertinent past surgical history Family History Family History Mother Heart problem Hypertension Father No problems noted. Daughter No problems noted. Daughter No problems noted. Social History Social History Housing: Apartment Alcohol intake: current Alcohol intake frequency: holidays/special occasions only Patient Tobacco Use Status: Former Tobacco user Tobacco use type: Cigarette e-Cigarette/Vaping Use: Never Used Advance Directives: No Advance Directives Information Provided: No Do you have a plan to hurt others: No Plan service: No Current occupational status: unemployed Cognitive needs: No Hearing needs: No Vision needs: No Physical Exam Vital Signs: Vital Signs: Last Vital Signs Temp 98.4 F 02/13/24 15:12 Pulse 81 02/13/24 15:12 Resp 16 02/13/24 15:12 BP 116/67 02/13/24 15:12 Pulse Ox 97 02/13/24 15:12 O2 Del Method Room Air 02/13/24 15:12 BMI result Body Mass Index 48.2 Appearance: Alert.?Oriented to person, place and time. No acute distress.?Normal affect. Eyes: Pupils equal, round and reactive to light.? EOMI. No nystagmus. ENT: Pharynx normal.?? Neck: Normal inspection.? Neck supple.? No cervical adenopathy. ? CVS: Heart sounds normal. Normal heart rate and rhythm.? Pulses normal.?? Respiratory: No respiratory distress.? Lung sounds clear to auscultation bilaterally?? Abdomen: Soft and non-tender. Normoactive bowel sounds. ? Skin: Skin warm and dry.? Normal skin color.? Extremities: No lower extremity edema.? No calf ttp? Neuro: Moves all extremities spontaneously. Sensation intact bilaterally. CN II- XII intact. No focal neuro deficits. Ambulates with normal steady gait. Medical Decision Making Medical Decision Making MDM Narrative: Patient is a 48-year-old male past medical history of diabetes, hypertension, anxiety presenting to emergency department for evaluation of a headache in the setting of COVID-19 infection. Single dose of OTC acetaminophen with only minimal improvement. Overall appears well, nontoxic, afebrile. Speaking clear full sentences. No focal neurological deficits. Ambulatory with a steady gait. No history of CKD. Discussed conservative treatment, rest, increase fluid intake, small frequent meals, acetaminophen/ibuprofen for headache management. Unlikely ICH, SDH, CVA. No indications for head CT at this time. No nuchal rigidity, not consistent with meningitis. Stable for discharge home Differential Diagnosis Differential Diagnoses: The differential diagnosis associated with the presentation includes (See narrative above) Admission/Observation Consideration of admission/observation: Escalation of care including admission/observation considered (See narrative above) Independent Historian Clinical information obtained from an independent historian. History obtained from or confirmed by: Spouse External Record Review External record reviewed: Outpatient record and Prior outpatient labs Tests considered The following testing was considered but not selected: Head CT deferred, see narrative above Prescription Management I considered prescription management with: Pain Medication (See narrative above) Discharge Plan Discharge Clinical Impression: COVID-19, Headache Patient Disposition: Home, Self-Care Instructions: Acute Headache (ED), COVID-19 (Coronavirus Disease 2019) (ED) Additional Instructions: You can take ibuprofen 200 mg, 3 tablets (600mg) every 6-8 hours as needed for pain, in addition to Tylenol 500 mg, 2 tablets (1,000mg) every 4-6 hours as needed for pain, but not to exceed 3 doses daily (3,000mg).? Be sure to stay well hydrated, drink plenty of fluids. Eat small frequent meals. Follow-up with primary care doctor. You may return to emergency department any new or worsening symptoms or concerns. Prescriptions: No Action (DME) pen needle, diabetic [BD Ultra-Fine Carin Pen Needle] 32 gauge x 5/32 needle See Rx Instructions .ROUTE .CLK Design AutomationKAISER PERMANENTE MEDICAL CENTERHitchedPic Qty: 50 2RF Rx Instructions: As directed (DME) Wrist Brace - one Misc See Rx Instructions .Route Qty: 1 0RF Rx Instructions: Left wrist brace sized to fit metformin 1,000 mg tablet 1,000 mg PO BID 30 Days Qty: 60 3RF sertraline 50 mg tablet 50 mg PO DAILY 30 Days Qty: 30 3RF lisinopril 5 mg tablet 5 mg PO DAILY 90 Days Qty: 90 2RF cephalexin 500 mg capsule 500 mg PO Q6H 7 Days Qty: 28 0RF doxycycline hyclate 100 mg tablet 100 mg PO BID 7 Days Qty: 14 0RF semaglutide 0.25 mg or 0.5 mg (2 mg/3 mL) pen injector 0.25 mg subcut QWEEK Qty: 3 3RF atorvastatin 20 mg tablet 20 mg PO BEDTIME 90 Days Qty: 90 1RF insulin glargine [Lantus Solostar U-100 Insulin] 100 unit/mL (3 mL) insulin pen 36 unit subcut QPM Referrals: Lee Díaz PA-C [Primary Care Provider] - Stand Alone Forms: Work/School Release Discharge Date/Time: 02/13/24 15:27 Print Language: Prydeinig
== END 2024-02-13 15:27 | disposition home or self-care (01) ==
PROVIDERS: Emergency Provider Emergency Medicine Emergency Medical Services; PCP Physician Assistant
DX: U07.1 COVID-19 (principal); R51.9 Headache, unspecified; I10 Essential (primary) hypertension; Z87.891 Personal history of nicotine dependence; M79.10 Myalgia, unspecified site
CPT/HCPCS: 99281; 99283

== ENCOUNTER 2024-07-10 11:23 | Outpatient (AMB) | payer OTHER, SELFPAY ==
[2024-07-10 11:37] VITALS: BP 132/80; PULSE 80; TEMP 36.2; O2SAT 96; BMI 47.3
--- NOTE | 2024-07-10 11:37 | A.OFFPC_ITS ---
Vital Signs 07/10/24 11:37 Height 5 ft 8 in Weight 311 lb BMI 47.3 BP 132/80 Blood Pressure Location Lt brachial Position Sitting Pulse 80 Pulse Source Pulse Oximeter Temp 97.1 F Temp Source Temporal Artery Scan Pulse Oximetry (%) 96 Oxygen Delivery Method Room Air Intake Visit Reasons: PE Commercial Makeup Artist Required: Yes Commercial Makeup Artist Language: Order Picker Name: Pt refused spouse interpret Accompanied by: Self / Same As Patient Allergies No Known Allergies Allergy (Verified 07/10/24 12:00) Medication List - Last Reconciled 07/10/24 by Lee Díaz PA-C atorvastatin 20 mg PO BEDTIME 90 days Brace,wrist (Wrist Brace - one) Left wrist brace sized to fit docusate sodium 200 mg PO BEDTIME insulin glargine (Lantus Solostar U-100 Insulin) 36 units subcut QPM lisinopril 5 mg PO DAILY 90 days metformin 1,000 mg PO BID 30 days pen needle, diabetic (BD Ultra-Fine Carin Pen Needle) As directed semaglutide (Ozempic) 1 mg subcut sertraline 50 mg PO DAILY 30 days Tobacco use date assessed: 08/05/23 Dental Screening Dental Screen Date: 02/26/23 HPI PE HPI Details Patient is a 49-year-old male here today for routine annual physical ?Patient has a past medical history significant for type 2 diabetes, morbid obesity, hyperlipidemia, Fatty liver , and obstructive sleep apnea. Class 3 obesity: He is now seeing bariatric program at [facility]. Now on Ozempic 1 mg weekly and feels he is losing weight and getting more glycemic control. Also seeing a lacquerer at [facility]. CHRONIC MEDICAL CONDITIONS--> . DMII: Patient continues on long-acting insulin. He has establish care with an lacquerer at [facility]. His Ozempic dose now is 1 mg weekly and feels his sugars have been much better. He does report having difficulty with retracting his penile foreskin and is interested in seeing a urologist for elective circumcision. .. Hyperlipidemia: Continues on atorvastatin 20 mg. Has been started on statin therapy and will recheck lipid panel in the next 3 mo nt with goal LDL to be below 100 VAccine: UTD with PVC and flu , Colonoscopy: HAs scheduled for colonoscopy in 2024 [facility] Medical History (Updated 07/10/24 @ 13:26 by Lee Díaz PA-C) MIRIAM (obstructive sleep apnea) Anxiety HTN (hypertension) Diabetes Trapezius muscle strain Numbness and tingling in left hand Acid reflux Right knee pain Bilateral anterior knee pain Balanitis Hand pain Surgical History No pertinent past surgical history Family History Mother Heart problem Hypertension Father No problems noted. Daughter No problems noted. Daughter No problems noted. Social History (Updated 07/10/24 @ 12:04 by Lee Díaz PA-C) Housing: Apartment Alcohol intake: current Alcohol intake frequency: a few times a month Alcohol type: beer Patient Tobacco Use Status: Former Tobacco user Tobacco use type: Cigarette e-Cigarette/Vaping Use: Never Used service: No Current occupational status: employed Current occupation: [employer] Cognitive needs: No Hearing needs: No Vision needs: No Questionnaire PHQ-9 Over the last 2 weeks, how often have you been bothered by any of the following problems? 1. Little interest or pleasure in doing things: several days 2. Feeling down, depressed, or hopeless: not at all 3. Trouble falling or staying asleep, or sleeping too much: nearly every day 4. Feeling tired or having little energy: nearly every day 5. Poor appetite or overeating: several days 6. Feeling bad about yourself - or that you are a failure or have let yourself or your family down: not at all 7. Trouble concentrating on things, such as reading the newspaper or watching television: not at all 8. Moving or speaking so slowly that other people could have noticed. Or the opposite - being so fidgety or restless that you have been moving around a lot more than usual: not at all 9. Thoughts that you would be better off or of hurting yourself in some way: not at all Total score: 8 Depression Screening Interpretation: Positive Depression Screening Follow-up: Existing condition Depression Screening Done: Yes 17227 - PHQ-9 Billing: Yes Source: Developed by Drs. Saúl Galvin, Tyra Gonsalez, Farzad Veronica and colleagues, with an educational julia from [employer]. Thrive Questionnaire Date Thrive assessed: 07/03/24 I am a: Patient What is your living situation today?: I have a steady place to live Within the past 12 months, did the food you bought not last and you didn't have the money to get more?: Never true Within the past 12 months, did you worry whether your food would run out before you got money to buy more?: Never true Do you have trouble paying for medicines?: No Do you have trouble getting transportation to medical appointments?: No Do you have trouble paying your heating and electricity bill?: No Do you have trouble taking care of your child, family member or friend?: No Do you have trouble with day-to-day activities such as bathing, preparing meals, shopping, managing finances, etc.?: No Are you currently unemployed and looking for a job?: No Are you interested in more education?: No Please select the resources that you would like help with: None Currently or been in a relationship where the following occur: No concerns reported THRIVE Score: 0 AUDIT C Alcohol Use Questionnaire (AUDIT-C) 1. How often do you have a drink containing alcohol?: Never 2. How many drinks containing alcohol do you have on a typical day when you are drinking?: 1 or 2 3. How often do you have six or more drinks on one occasion?: Never Total Score: 0 OMAR-7 AMB Questionnaire OMAR-7 Date OMAR - 7 assessed: 08/05/23 Feeling nervous, anxious, or on edge: 1 = Several days Not being able to stop or control worryin = Not at all Worrying too much about different things: 1 = Several days Trouble relaxin = Several days Being so restless that it is hard to sit still: 0 = Not at all Becoming easily annoyed or irritable: 1 = Several days Feeling afraid as if something awful might happen: 0 = Not at all Total OMAR-7 score (0-4 normal; 5-9 mild; 10-14 moderate; 15-21 severe): 4 Source: Developed by Drs. Saúl Galvin, yTra Gonsalez, Farzad Veronica and colleagues, with an educational julia from [employer] OMAR-7 Assessment Billing OMAR-7 Assessment Tool: OMAR-7 Assessment 02817 Review of Systems Const Denies body aches, Denies chills, Denies excessive sweating, Denies fatigue, Denies fever(s) and Denies headache(s) Eyes Denies blurry vision ENT Denies dysphagia, Denies vertigo, Denies dizziness, Denies headache(s), Denies hearing loss and Denies tinnitus Card Denies chest pain, Denies chest pain with activity, Denies syncope, Denies irregular heart rhythm and Denies dyspnea Resp Denies chest congestion, Denies cough, Denies hemoptysis, Denies dyspnea and Denies wheezing GI Denies abdominal pain, Denies melena, Denies hematochezia, Denies coffee ground emesis, Denies dysphagia, Denies diarrhea, Denies nausea and Denies vomiting Denies difficulty urinating, Denies dysuria, Denies urinary frequency, Denies urinary hesitancy and Denies urinary urgency Musc Denies arthralgias, Denies limited range of motion, Denies muscle cramps and Denies muscle weakness Skin/Breast Denies rash and Denies skin ulcer Neuro Denies Abnormal speech present, Denies confusion, Denies vertigo, Denies dizziness, Denies syncope, Denies headache(s), Denies memory loss and Denies seizure-like activity Psych Denies anxiety, Denies confusion, Denies depression, Denies memory loss, Denies panic attacks and Denies paranoia Endo Denies excessive sweating, Denies fatigue, Denies flushing, Denies polydipsia a nd Denies polyuria Aller/Immun Denies wheezing Physical exam (Primary Care) Vital Signs: Last Vital Signs Temp 97.1 F 07/10/24 11:37 Pulse 80 07/10/24 11:37 BP 132/80 07/10/24 11:37 Pulse Ox 96 07/10/24 11:37 Oxygen Delivery Method Room Air 07/10/24 11:37 BMI result Body Mass Index 47.3 BMI Assessment/Plan discussion: High BMI High, discussed plan: lifestyle, weight reduction, dietary and physical activity Tobacco/Smoking Status: Tobacco use Status Tobacco use date assessed 08/05/23 07/10/24 11:41 Patient Tobacco Use Status Former Tobacco user 07/10/24 12:04 Tobacco use type Cigarette 07/10/24 12:04 e-Cigarette/Vaping Use Never Used 07/10/24 12:04 PHQ-9: PHQ-9 Score PHQ-9: Total score 8 07/10/24 12:02 Depression Screening Interpretation: Positive Depression Screening Follow-up: Existing condition Thrive Assessment: Date of Thrive Assessment Date Thrive assessed 07/03/24 07/10/24 11:41 Currently or been in a relationship where the following occur: No concerns reported Const General: cooperative, comfortable, no acute distress, alert and awake; No confusion Orientation/consciousness: oriented to person, oriented to place, patient oriented x3 and No confusion HENMT Head: Yes normocephalic Ears: external ears normal and TM's normal bilaterally Face and sinus: No sinus tenderness Mouth: Normal oral and palatal mucosa present and tongue normal Teeth and gingiva: dentition normal and gingiva normal Throat: Yes posterior oropharynx normal, Yes tonsils normal and Yes uvula midline Eyes Conjunctivae: conjunctivae normal Sclerae: sclerae normal Pupils: Equal, round and reactive pupils present EOM: EOMs intact bilaterally Direct Ophthalmoscopy: No no photophobia Neck Neck: Yes no lymphadenopathy, No tender and Yes no JVD Thyroid: Thyroid normal Carotids: no bruits Chest Chest palpation & inspection: no tenderness Resp Effort & Inspection: normal respiratory effort, no audible wheezes, not labored and no stridor Auscultation: no crackles, no rales, no rhonchi and no wheezes Cardio Jugular venous distension: no JVD Rate: regular rate, not bradycardic and not tachycardic Rhythm: regular rhythm Bruits: no carotid bruits Peripheral pulses: Peripheral pulses 2+ throughout GI Inspection: Yes normal to inspection, No abdominal wall ecchymosis and No vi sible herniation Palpation (GI): Soft to palpation, nontender, no guarding, not rigid and No hepatosplenomegaly present Auscultation: normoactive bowel sounds General: Yes no CVA tenderness Back/Spine/Pelvis Back: no CVA tenderness and No back tenderness Cervical Spine: cervical ROM normal Thoracic/Lumbar Spine: thoracic and lumbar spine normal to inspection, straight leg raise negative bilaterally, No thoraco-lumbar ROM limited and No lumbar spinal tenderness Skin Lesions: no lesions Rashes: no rashes Wounds: no wounds Neuro General: oriented to person, oriented to place, patient oriented x3, CN's II-XI intact bilaterally and No confusion Cranial nerves: Yes Equal, round and reactive pupils present and Yes Normal accommodation reflex present Cognition (Neuro): normal cognition Speech: No Abnormal speech present Gait exam (Neuro): Normal gait present Motor exam (neuro): 5/5 motor strength present throughout Extrem Right upper extremity: full ROM; no cyanosis Left upper extremity: full ROM; no cyanosis Right lower extremity: no edema Left lower extremity: no edema Psych Appearance: grossly normal Mental Status: mental status grossly normal Affect: normal affect Attitude: cooperative Thought process: Normal thought process present Office Procedures Flu Questionnaire Does the patient have a severe egg allergy?: No Does the patient have severe life threatening allergies?: No Does the patient have a fever or illness today?: No Has the patient ever had Guillain-Chaffee Syndrome?: No Has the patient ever had any past reaction to a flu shot?: No Immunizations Fluarix Triv 7836-1021 (PF) 45 mcg (15 mcg x 3)/0.5 mL IM syringe Performing Provider: Lee Díaz PA-C [facility] Administered by: JOSE Marin on 07/10/24 11:49 Dose Route Admin Location Dispensed Lot Number Expiration Date NDC System Architect 0.5 mL IM Left Deltoid 0.5 mL [id number] 11/27/24 [id number] [employer] VIS Given Date VIS Provided VIS Publication Date 07/10/24 Single Vaccine 21 Eligibility Eligibility Date Funding Source Not [facility] Eligible 07/10/24 Private Coding Level of Care Code Est Pt Prev Care 40-64y([id number]) Diagnoses Annual physical exam Z00.00 Phimosis of penis N47.1 Type 2 diabetes mellitus with hyperglycemia, without long-term current use of insulin E11.65 Diabetes mellitus complication status: with hyperglycemia Diabetes mellitus [employer] insulin use: without [facility] use Diabetes mellitus type: type 2 Class 3 obesity E66.813 Primary hypertension I10 Hypertension type: primary hypertension Hypercholesterolemia E78.00 OMAR (generalized anxiety disorder) F41.1 MDD (major depressive disorder), recurrent episode, mild F33.0 Additional Codes PHQ-9 - 27493 - PHQ-9 Billing: Yes ([id number]) OMAR-7 Assessment Billing - OMAR-7 Assessment Tool: OMAR-7 Assessment 89095 ([id number]) Assessment & Plan Assessment & Plan (1) Annual physical exam: Code(s): Z00.00 - Encounter for general adult medical examination without abnormal findings Category: Medical Plan: As per HPI (2) Phimosis of penis: Code(s): N47.1 - Phimosis Category: Medical Plan: Patient would like to speak with the urologist about a elective circumcision. Has had balanitis infections in the past and uncontrolled type 2 diabetes. Now his diabetes has been much better controlled and would like we would like to have circumcision. (3) Diabetes: Code(s): E11.9 - Type 2 diabetes mellitus without complications Category: Medical Qualifiers: Diabetes mellitus complication status: with hyperglycemia Diabetes mellitus [employer] insulin use: without [employer] use Diabetes mellitus type: type 2 Qualified Code(s): E11.65 - Type 2 diabetes mellitus with hyperglycemia Plan: Patient followed by lacquerer at [facility]. He continues with insulin therapy and Ozempic 1 mg daily. He is seeing a bariatric surgeon is considering bariatric surgery. Goal A1c is to remain below 7.0 (4) Class 3 obesity: Code(s): E66.813 - Obesity, class 3 Category: Medical Plan: Again patient followed by bariatric surgery at [facility]. He is considering bariatric surgery. He is now on GLP 1 Ozempic 1 mg weekly which has offered him some weight reduction. (5) HTN (hypertension): Code(s): I10 - Essential (primary) hypertension Category: Medical Qualifiers: Hypertension type: primary hypertension Qualified Code(s): I10 - Essential (primary) hypertension Plan: Patient's blood pressure acceptable today in office. Will continue his current dose of lisinopril with goal blood pressure to remain below 140/90. (6) Hypercholesterolemia: Code(s): E78.00 - Pure hypercholesterolemia, unspecified Category: Medical Plan: Patient continues to work on lifestyle and dietary modifications. Again followed by a bariatric program at [facility]. Continues on atorvastatin 20 mg without side effect. Will continue to follow lipid panel with goal LDL to be below 100 (7) OMAR (generalized anxiety disorder): Code(s): F41.1 - Generalized anxiety disorder Category: Medical Plan: Patient's OMAR-7 score positive for anxiety which has been existing condition for him. He continues on sertraline 50 mg with good effect. Not interested in seeing a mental health therapist at this time. (8) MDD (major depressive disorder), recurrent episode, mild: Code(s): F33.0 - Major depressive disorder, recurrent, mild Category: Medical Plan: Patient's PHQ-9 score positive for mild depression which has been existing condition for him. He continues on SSRI therapy with good effect. Orders: Orders Influenza [id number] Immunization Today Z23 - Encounter for immunization Comprehensive [place]. Panel Fast Today E11.65 - Type 2 diabetes mellitus with hyperglycemia Complete Blood Count no Diff Today E11.65 - Type 2 diabetes mellitus with hyperglycemia Hemoglobin A1c Today E11.65 - Type 2 diabetes mellitus with hyperglycemia Microalbumin, Random (w Creat) Today I10 - Essential (primary) hypertension Lipid Panel Today E78.00 - Pure hypercholesterolemia, unspecified Prostate Specific Antigen Scr Today E11.65 - Type 2 diabetes mellitus with hyperglycemia, Z12.5 - Encounter for screening for malignant neoplasm of prostate Referrals Urology Referral N47.1 - Phimosis
--- OUTSIDE RECORDS SUMMARY | 2024-07-10 12:40 | XMS_ITS | Encounter Summary ---
Author Organization [facility] Address [address] [place] [address] Care Team Providers Care Business Lawyer Name Role Phone Lee Díaz Primary Care Provider Encounter Details Date Type Department Care Team (Late Contact Info) Description 06/15/2024 Telephone Bariatric Surgery [facility] [address] [facility] [address] [place] [address] Wendi Mcdonnell MA Social History Tobacco Use Types Packs/Day Years Used Date Smoking Tobacco: Never Smokeless Tobacco: Never Sex and Gender Information Value Date Recorded Sex Assigned at Not on file Legal Sex Male 8:58 PM EST Gender Identity Not on file Sexual Orientation Not on file documented as of this encounter Progress Notes * Wendi Mcdonnell MA - 06/15/2024 10:27 AM EST Called pt. No answer. Left message for pt to call back the office documented in this encounter Plan of Treatment Upcoming Encounters Date Type Department Care Team (Late st Contact Info) Description 07/25/2024 8:00 AM EST Office Visit Endocrinology - [place] [address] [place] [id number] Priti Gutierrez PA [address] [place], [place] documented as of this encounter Visit Diagnoses Not on filedocumented in this encounter Care Teams Business Lawyer Relationship Specialty Start Date End Date Lee Díaz PA PCP - General 03/01/23 documented as of this encounter
--- OUTSIDE RECORDS SUMMARY | 2024-07-10 12:40 | XMS_ITS | Clinical Summary ---
Author Organization 175 [facility] Address [address] [place] [address] Phone Care Team Providers Care Option Trader Name Role Phone Lee Díaz Primary Care Provider Allergies No known active allergies Medications glucose sensor,implant-de xamet device 1 Each by Other route See Admin Instructions . USE DIRECTED 02/08/20 24 Active atorvastatin (LIPITOR) 20 mg tablet TAKE 1 TABLET BY MOUTH AT BEDTIME 07/07/19 24 Active lisinopriL (PRINIVIL,ZESTRIL ) 5 mg tablet Take 1 tablet (5 mg total) by mouth 1 (one) time each day. 05/25/20 23 Active metFORMIN (GLUCOPHAGE) 1,000 mg tablet Take 1 Tablet by mouth 2 times daily (with meals). 06/09/19 24 Active Ozempic 1 mg/dose (4 mg/3 mL) injection pen INJECT 1MG INTO THE SKIN ONCE A WEEK 3 mL 1 05/12/20 24 Active FreeStyle Gold 3 Plus Sensor device USE 1 EACH BY OTHER ROUTE SEE ADMIN INSTRUCTIONS . USE DIRECTED 2 each 2 06/05/19 25 Active FreeStyle Gold 3 Plus Sensor device Inject 1 EA into the skin every 14 (fourteen) days. 04/09/20 24 Active ergocalciferol (VITAMIN D-2) 1,250 mcg (50,000 unit) capsule Take 1 capsule (50,000 Units total) by mouth 1 (one) time per week. 12 each 06/07/19 25 026 Active insulin glargine-yfgn 100 unit/mL (3 mL) injectionIndicati ons:Class 3 severe obesity with serious comorbidity and body mass index (BMI) of 45.0 to 49.9 in adult, unspecified obesity type ([facility]) INJECT 30-32 UNITS INTO THE SKIN DAILY. 30 mL 1 06/19/19 25 Active insulin glargine,hum.rec. anlog (Basaglar KwikPen U-100 Insulin) 100 unit/mL (3 mL) injection pen Inject 30-32 Units into the skin daily. 02/16/20 24 025 Discontinued pantoprazole (PROTONIX) 40 mg EC tablet Take 1 tablet (40 mg total) by mouth 2 (two) times a day for 14 days. Do not crush, chew, or split. 28 each 06/07/19 25 025 metroNIDAZOLE (FLAGYL) 500 mg tablet Take 1 tablet (500 mg total) by mouth 4 (four) times a day for 14 days. Do not use mouth wash or consume alcohol until 48 hours after last dose 56 each 06/07/19 25 025 tetracycline 500 mg tablet Take 1 tablet by mouth 4 (four) times a day for 14 days. 56 each 06/07/19 25 025 bismuth subsalicylate 525 mg tablet Take 1 tablet by mouth 4 (four) times a day for 14 days. 56 tablet 06/07/19 25 025 Active Problems Problem Noted Date Diagnosed Date Class 3 severe obesity with serious comorbidity and body mass index (BMI) of 45.0 to 49.9 in adult 05/08/2024 Encounters Date Type Department Care Team Description 07/06/2024 7:39 AM EST - 07/06/2024 11:59 PM EST Hospital Encounter [facility] [address] [place] [phone] Morbid obesity with BMI of 45.0-49.9, adult ([facility]); Gastroesophageal reflux disease, unspecified whether esophagitis present Discharge Disposition: Home or Self Care 06/15/2024 Telephone Bariatric Surgery - [address] [phone] Wendi Mcdonnell [place] 06/08/2024 10:00 AM EST Nutrition Bariatric Surgery - [place] [address] [phone] Tammi Sierra, TIERA Class 3 severe obesity without serious comorbidity with body mass index (BMI) of 45.0 to 49.9 in adult, unspecified obesity type (CMS/HCC) (Primary Dx) 05/26/2024 9:30 AM EST Lab Draw Station - 175 [facility] 175 [facility] [address] [place] [address] Morbid obesity with BMI of 45.0-49.9, adult (CMS/HCC) 05/19/2024 Telephone Endocrinology [address] [phone] Priti Gutierrez PA PRIOR AUTHORIZATION 05/08/2024 10:00 AM EST Consult Bariatric Surgery - [address] [phone] Class 3 severe obesity with serious comorbidity and body mass index (BMI) of 45.0 to 49.9 in adult, unspecified obesity type (CMS/HCC) (Primary Dx) 05/08/2024 Telephone Bariatric Surgery - [address] [phone] Rosemarie Herrera MD 05/03/2024 9:30 AM EST Consult Bariatric Surgery - [address] [place] [address] Rosemarie Herrera MD Morbid obesity with BMI of 45.0-49.9, adult (CMS/HCC) (Primary Dx); Gastroesophageal reflux disease, unspecified whether esophagitis present; Type 2 diabetes mellitus without complication, with long-term current use of insulin (CMS/HCC) from Last 3 Months Social History Tobacco Use Types Packs/Day Years Used Date Smoking Tobacco: Never Smokeless Tobacco: Never Sex and Gender Information Value Date Recorded Sex Assigned at Not on file Legal Sex Male 8:58 PM EST Gender Identity Not on file Sexual Orientation Not on file Obstetrics History Last Filed Vital Signs Vital Sign Reading Time Taken Comments Blood Pressure 156/90 05/03/2024 9:06 AM EST Pulse 73 05/03/2024 9:06 AM EST Temperature 36.6 ??C (97.9 ??F) 05/03/2024 9:06 AM ES T Respiratory Rate - - Oxygen Saturation - - Inhaled Oxygen Concentration - - Weight 141 kg (310 lb) 06/08/2024 10:08 AM EST Height 172.7 cm (5' 8 ) 05/03/2024 9:06 AM EST Body Mass Index 47.14 05/03/2024 9:06 AM EST Plan of Treatment Upcoming Encounters Date Type Department Care Team (Late st Contact Info) Description 07/25/2024 8:00 AM EST Office Visit Endocrinology - [place] [address] [place] [phone] Priti Gutierrez PA [address] [place] [address] Health Maintenance Due Date Last Done Comments DTaP,Tdap,and Td Vaccines (1 - Tdap) 1982 Diabetes: Annual Foot Exam 1985 Diabetes: Annual Retina Eye Exam 1985 Hepatitis B Vaccines (1 of 3 - 19+ 3-dose series) 1994 Pneumococcal Vaccine: Pediatrics (0 to 5 Years) and At-Risk Patients (6 to 64 Years) (1 of 2 - PCV) 1994 Colorectal Cancer Screening: Colonoscopy 06/25/2023 Depression Screening 06/25/2023 HIV Screening 06/25/2023 Hepatitis C Screening 06/25/2023 Social Influencers of Health Screening 06/25/2023 COVID-19 Vaccine (1 - 2023-2 5 season) 2024 Influenza Vaccine (#1) 2024 Diabetes: Annual Urine Albumin-Creatinine Ratio (uACR) 05/03/2024 Diabetes: Blood Sugar Contro l Test (HGBA1C) 11/24/2024 05/26/2024, 10/29/2023, 10/29/2023 Diabetes: Annual GFR (Glomerular Filtration Rate) 05/26/2025 05/26/2024, 10/29/2023, 10/29/2023 Cholesterol Screening (Lipid Panel) 05/26/2029 05/26/2024 HIB Vaccines Aged Out No longer eligi ble based on patient's age to complete this topic HPV Vaccines Aged Out No longer eligi ble based on patient's age to complete this topic Hepatitis A Vaccines Aged Out No long er eligible based on patient's age to complete this topic IPV Vaccines Aged Out No longer eligi ble based on patient's age to complete this topic MMR Vaccines Aged Out No longer eligi ble based on patient's age to complete this topic Meningococcal ACWY Vaccine Aged Out N o longer eligible based on patient's age to complete this topic Meningococcal B Vacine Aged Out No lo nger eligible based on patient's age to complete this topic RSV Immunization Patients Under 20 months Aged Out No longer eligible b ased on patient's age to complete this topic Varicella Vaccines Aged Out No longer eligible based on patient's age to complete this topic Procedures Procedure Name Priority Date/Time Associated Diagnosis Comments XR UGI W AIR CONTRAST Routine 07/06/2024 8:27 AM EST Morbid obesity with BMI of 45.0-49.9, adult (CMS/HCC) Gastroesophageal reflux disease, unspecified whether esophagitis present CBC WITH AUTO DIFFERENTIAL Routine 05/26/2024 9:29 AM EST Morbid obesity with BMI of 45.0-49.9, adult (CMS/HCC) URIC ACID Routine 05/26/2024 9:29 AM EST Morbid obesity with BMI of 45.0-49.9, adult (CMS/HCC) INSULIN, FASTING Routine 05/26/2024 9:29 AM EST Morbid obesity with BMI of 45.0-49.9, adult (CMS/HCC) VITAMIN D 25 HYDROXY Routine 05/26/2024 9:29 AM EST Morbid obesity with BMI of 45.0-49.9, adult (CMS/HCC) VITAMIN B12 Routine 05/26/2024 9:29 AM EST Morbid obesity with BMI of 45.0-49.9, adult (CMS/HCC) VITAMIN B1 Routine 05/26/2024 9:29 AM EST Morbid obesity with BMI of 45.0-49.9, adult (CMS/HCC) THYROID STIMULATING HORMONE Routine 05/26/2024 9:29 AM EST Morbid obesity with BMI of 45.0-49.9, adult (CMS/HCC) NICOTINE AND COTININE Routine 05/26/2024 9:29 AM EST Morbid obesity with BMI of 45.0-49.9, adult (CMS/HCC) MAGNESIUM Routine 05/26/2024 9:29 AM EST Morbid obesity with BMI of 45.0-49.9, adult (CMS/HCC) LIPID PANEL WITH REFLEX TO DIRECT LDL Routine 05/26/2024 9:29 AM EST Morbid obesity with BMI of 45.0-49.9, adult (CMS/HCC) IRON AND TIBC Routine 05/26/2024 9:29 AM EST Morbid obesity with BMI of 45.0-49.9, adult (CMS/HCC) HEMOGLOBIN A1C Routine 05/26/2024 9:29 AM EST Morbid obesity with BMI of 45.0-49.9, adult (CMS/HCC) HELICOBACTER PYLORI BREATH TEST Routine 05/26/2024 9:29 AM EST Morbid obesity with BMI of 45.0-49.9, adult (CMS/HCC) FOLATE Routine 05/26/2024 9:29 AM EST Morbid obesity with BMI of 45.0-49.9, adult (CMS/HCC) FERRITIN Routine 05/26/2024 9:29 AM EST Morbid obesity with BMI of 45.0-49.9, adult (CMS/HCC) CORTISOL Routine 05/26/2024 9:29 AM EST Morbid obesity with BMI of 45.0-49.9, adult (CMS/HCC) COMPREHENSIVE METABOLIC PANEL Routine 05/26/2024 9:29 AM EST Morbid obesity with BMI of 45.0-49.9, adult (CMS/HCC) CBC AND DIFFERENTIAL Routine 05/26/2024 9:29 AM EST Morbid obesity with BMI of 45.0-49.9, adult (CMS/HCC) from Last 3 Months Results * XR UGI w Air Contrast (07/06/2024 8:27 AM EST) Anatomical Region Laterality Modality Body Radiographic Liliana ging 07/06/2024 10:0 3 AM EST Addenda Addendum by Christopher Aguilar MD on 07/06/2024 10:[address] Teleradiology -------- ADDENDUM -------- Dictated By: Christopher Aguilar Dictated Date: 07/06/2024 10:25 ET Assigned Physician: Christopher Aguilar Reviewed and Electronically Signed By: Christopher Aguilar Signed Date: 07/06/2024 10:25 ET Workstation ID: [id number] Transcribed By: Self Edit Transcribed Date: 07/06/2024 10:25 ET Impressions 07/06/2024 10:11 AM EST Normal double contrast upper GI examination. -------- FINAL REPORT -------- Dictated By: Maral Solares Dictated Date: 07/06/2024 10:03 ET Assigned Physician: Christopher Aguilar Reviewed and Electronically Signed By: Christopher Aguilar Signed Date: 07/06/2024 10:11 ET Workstation ID: [id number] Transcribed By: Self Edit Transcribed Date: 07/06/2024 10:05 ET Resident/PA/ASSEMBLER UTILITY BUILDINGS: Maral Solares Narrative 07/06/2024 10:11 AM EST FINDINGS: Double contrast UGI performed. COMPARISON: None HISTORY: Patient is a 49-year-old male with no significant past medical history, preop gastric bypass. 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 Right upper and lower quadrants of the abdomen are incompletely visualized. Bowel gas pattern is nonobstructive. Motion artifact obscures lung bases. Osseous structures are overall unremarkable. FINDINGS: Effervescent crystals were administered orally. Thick and thin barium was then administered orally under fluoroscopic control. Esophagus: Normal distensibility, motility and mucosal pattern. There is no evidence of obstruction or hiatal hernia. Stomach: Normal distensibility and motility. Prompt passage of contrast from the stomach into the duodenal bulb and sweep. No gastric mass or ulceration. Visualization of proximal small bowel is within normal limits. ?? Gastroesophageal reflux: None DAP: 3662.8 Gycm^2 Procedure Note Christopher Aguilar MD - 07/06/2024 FINDINGS: Double contrast UGI performed. COMPARISON: None HISTORY: Patient is a 49-year-old male with no significant past medicalhistory, preop gastric bypass. 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 Rightupper and lower quadrants of the abdomen are incompletely visualized.Bowel gas pattern is nonobstructive. Motion artifact obscures lung bases.Osseous structures are overall unremarkable. FINDINGS: Effervescent crystals were administered orally. Thick and thinbarium was then administered orally under fluoroscopic control. Esophagus: Normal distensibility, motility and mucosal pattern. There isno evidence of obstruction or hiatal hernia. Stomach: Normal distensibility and motility. Prompt passage of contrastfrom the stomach into the duodenal bulb and sweep. No gastric mass orulceration. Visualization of proximal small bowel is within normal limits. Gastroesophageal reflux: None DAP: 3662.8 Gycm^2 IMPRESSION: Normal double contrast upper GI examination. -------- FINAL REPORT -------- Dictated By: Maral Solares Dictated Date: 07/06/2024 10:03 ET Assigned Physician: Christopher Aguilar Reviewed and Electronically Signed By: Christopher Aguilar Signed Date: 07/06/2024 10:11 ET Workstation ID: [id number] Transcribed By: Self Edit Transcribed Date: 07/06/2024 10:05 ET Resident/PA/ASSEMBLER UTILITY BUILDINGS: Maral Solares us Rosemarie Herrera MD IMG FLUOROSCOPY PROCEDU RES Edited Result - Final * (ABNORMAL) Lipid panel with reflex to direct LDL (05/26/2024 9:29 AM EST) Cholesterol 184 0 - 200 mg/dL LAB CHEMISTRY METHOD 05/26/2024 2:47 PM EST [facility] Triglycerides 185(H) 0 - 150 mg/dL LAB CHEMISTRY METHOD 05/26/2024 2:47 PM EST [facility] HDL 47 >=40 mg/dL LAB CHEMISTRY METHOD 05/26/2024 2:47 PM [facility] LDL Calculated 100 0 - 100 mg/dL LAB CHEMISTRY METHOD 05/26/2024 2:47 PM EST [facility] VLDL Cholesterol Rakesh 37 mg/dL LAB CHEMISTRY METHOD 05/26/2024 2:47 PM [facility] Non HDL Chol. (LDL+VLDL) 137 <145 mg/dL LAB CHEMISTRY METHOD 05/26/2024 2:47 PM [facility] Chol/HDL Ratio 3.9 0.0 - 4.4 LAB CHEMISTRY METHOD 05/26/2024 2:47 PM [facility] Blood Venous blood specimen / Unknown Venipuncture / Unknown 05/26/2024 9:29 AM EST 05/26/2024 9:29 AM EST Rosemarie Herrera MD LAB BLOOD ORDERABLES Fi nal Result Performing Organization Address [facility]/State/ZIP Co de Phone Number [facility] [address] [place] [address], * (ABNORMAL) Nicotine and cotinine (05/26/2024 9:29 AM EST) Nicotine <2.0 <2.0 ng/mL 05/30/2024 1:21 AM EST [facility] Cotinine 8.2(H) <2.0 ng/mL 05/30/2024 1:21 AM EST [facility] Comment: ?Additional Reference Ranges: ? Active Tobacco ? Passive ? Abstinence ?User ?Exposure ?? 2 Weeks and more ? Nicotine ?30 - 50 ??ng/mL ?<2 ng/mL ?<2 ng/mL Cotinine ?? 200 - 800 ng/mL ?<8 ng/mL ?<2 ng/mL Reference Ranges from: ??Clin. Chem.; ??[id number] (2002) Direct any interpretive questions to the toxicology laboratory. This is for medical use only, it is not intended for forensic use. If applicable, any drug confirmation testing reported here was developed and the performance characteristics determined by [facility]. This confirmation testing has not been cleared or approved by the FDA. The laboratory is regulated under CLIA as qualified to perform high-complexity testing. This test is used for patient testing purposes. It should not be regarded as investigational or for research. Test performed at [facility], [address], [place] ??[address] ? [phone] Tasha Leal MD, PhD - Travel Administrator Blood Venous blood specimen / Unknown Venipuncture / Unknown 05/26/2024 9:29 AM EST 05/26/2024 9:29 AM EST us Rosemarie Herrera MD LAB BLOOD ORDERABLES Fi nal Result [facility] [address] [place] [address] * (ABNORMAL) CBC auto differential (05/26/2024 9:29 AM EST) WBC 10.4 4.8 - 10.8 K/mcL LAB HEMETOLOGY METHOD 05/26/2024 2:26 PM [facility] RBC 5.00 4.50 - 5.50 M/mcL LAB HEMETOLOGY METHOD 05/26/2024 2:26 PM [facility] Hemoglobin 14.3 13.5 - 17.5 g/dL LAB HEMETOLOGY METHOD 05/26/2024 2:26 PM [facility] Hematocrit 45.4 42.0 - 54.0 % LAB HEMETOLOGY METHOD 05/26/2024 2:26 PM [facility] MCV 91.3 79.0 - 98.0 FL LAB HEMETOLOGY METHOD 05/26/2024 2:26 PM [facility] MCH 28.8 27.0 - 32.0 pcg LAB HEMETOLOGY METHOD 05/26/2024 2:26 PM [facility] MCHC 31.5(L) 32.0 - 37.0 g/dL LAB HEMETOLOGY METHOD 05/26/2024 2:26 PM [facility] RDW 12.7 11.0 - 15.0 % LAB HEMETOLOGY METHOD 05/26/2024 2:26 PM [facility] Platelets 376 130 - 400 K/mcL LAB HEMETOLOGY METHOD 05/26/2024 2:26 PM [facility] MPV 11.1(H) 7.0 - 11.0 FL LAB HEMETOLOGY METHOD 05/26/2024 2:26 PM [facility] NRBC 0.0 <1.0 % LAB HEMETOLOGY METHOD 05/26/2024 2:26 PM [facility] NRBC Absolute 0.00 <0.10 K/mcL LAB HEMETOLOGY METHOD 05/26/2024 2:26 PM [facility] Neutrophils Relative 63.0 % LAB HEMETOLOGY METHOD 05/26/2024 2:26 PM [facility] Lymphocytes Relative 27.9 % LAB HEMETOLOGY METHOD 05/26/2024 2:26 PM [facility] Monocytes Relative 5.9 % LAB HEMETOLOGY METHOD 05/26/2024 2:26 PM [facility] Eosinophils Relative 1.8 % LAB HEMETOLOGY METHOD 05/26/2024 2:26 PM [facility] Basophils Relative 0.6 % LAB HEMETOLOGY METHOD 05/26/2024 2:26 PM [facility] Immature Granulocytes Relative 0.8 % LAB HEMETOLOGY METHOD 05/26/2024 2:26 PM [facility] Neutrophils Absolute 6.58 1.50 - 7.00 K/mcL LAB HEMETOLOGY METHOD 05/26/2024 2:26 PM [facility] Lymphocytes Absolute 2.91 1.00 - 5.00 K/mcL LAB HEMETOLOGY METHOD 05/26/2024 2:26 PM [facility] Monocytes Absolute 0.62 0.20 - 1.00 K/mcL LAB HEMETOLOGY METHOD 05/26/2024 2:26 PM [facility] Eosinophils Absolute 0.19 0.00 - 0.50 K/mcL LAB HEMETOLOGY METHOD 05/26/2024 2:26 PM [facility] Basophils Absolute 0.06 0.00 - 0.20 K/mcL LAB HEMETOLOGY METHOD 05/26/2024 2:26 PM [facility] Immature Granulocytes Absolute 0.08(H) 0.00 - 0.03 K/mcL LAB HEMETOLOGY METHOD 05/26/2024 2:26 PM [facility] Blood Venous blood specimen / Unknown Venipuncture / Unknown 05/26/2024 9:29 AM EST 05/26/2024 9:29 AM EST us Rosemarie Herrera MD LAB BLOOD ORDERABLES Fi nal Result [facility] [address] [place] [address], [place] [phone] * Iron and TIBC (05/26/2024 9:29 AM EST) Iron 90 50 - 160 mcg/dL LAB CHEMISTRY METHOD 05/26/2024 2:47 PM EST [facility] TIBC 374 250 - 450 mcg/dL LAB CHEMISTRY METHOD 05/26/2024 2:47 PM EST [facility] Iron Saturation 24 20 - 50 % LAB CHEMISTRY METHOD 05/26/2024 2:47 PM EST [facility] Blood Venous blood specimen / Unknown Venipuncture / Unknown 05/26/2024 9:29 AM EST 05/26/2024 9:29 AM EST us Rosemarie Herrera MD LAB BLOOD ORDERABLES Fi nal Result Performing Organization Address City/[facility]/ZIP Co de Phone Number [facility] [address] [place] [address], [place] [phone] * (ABNORMAL) Insulin, fasting (05/26/2024 9:29 AM EST) Insulin 34.9(H) 3.0 - 25.0 mcIU/mL LAB CHEMISTRY METHOD 05/26/2024 2:58 PM EST [facility] Blood Venous blood specimen / Unknown Venipuncture / Unknown 05/26/2024 9:29 AM EST 05/26/2024 9:29 AM EST Narrative [facility] - 05/26/2024 2:58 PM EST Insulin reference range based on fasting status. ??Insulin values vary in non- fasting individuals. us Rosemarie Herrera MD LAB BLOOD ORDERABLES Fi nal Result [facility] [address] [place] [address], [place] [phone] * (ABNORMAL) Helicobacter pylori breath test (05/26/2024 9:29 AM EST) H Pylori Breath Test Positive( A) Negative LAB CHEMISTRY METHOD 05/26/2024 2:48 PM EST [facility] Breath Oral cavity structure / Unknown Non-blood Collection / Unknown 05/26/2024 9:29 AM EST 05/26/2024 9:29 AM EST us Rosemarie Herrera MD LAB BODY FLUIDS AND STO OLS ORDERABLES Final Result Performing Organization Address [facility]/ZIP Co de Phone Number [facility] [address] [place] [address], * (ABNORMAL) Vitamin D 25 hydroxy (05/26/2024 9:29 AM EST) Pathologist [facility] Vit D, 25-Hydroxy 13.1(L) 30.0 - 80.0 ng/mL LAB CHEMISTRY METHOD 05/26/2024 2:56 PM EST [facility] Blood Venous blood specimen / Unknown Venipuncture / Unknown 05/26/2024 9:29 AM EST 05/26/2024 9:29 AM EST us Rosemarie Herrera MD LAB BLOOD ORDERABLES Fi nal Result Performing Organization Address City/[facility]/ZIP Co de Phone Number [facility] [address] [place] [address], [place] [phone] * Uric acid (05/26/2024 9:29 AM EST) Uric Acid 5.3 3.7 - 9.2 mg/dL LAB CHEMISTRY METHOD 05/26/2024 2:47 PM EST [facility] Blood Venous blood specimen / Unknown Venipuncture / Unknown 05/26/2024 9:29 AM EST 05/26/2024 9:29 AM EST us Rosemarie Herrera MD LAB BLOOD ORDERABLES Fi nal Result Performing Organization Address [facility] Co de Phone Number [facility] [address] [place] [address], [place] [phone] * Thyroid stimulating hormone (05/26/2024 9:29 AM EST) [facility] TSH 0.72 0.40 - 4.00 mcIU/mL LAB CHEMISTRY METHOD 05/26/2024 2:56 PM EST [facility] Blood Venous blood specimen / Unknown Venipuncture / Unknown 05/26/2024 9:29 AM EST 05/26/2024 9:29 AM EST us Rosemarie Herrera MD LAB BLOOD ORDERABLES Fi nal Result Performing Organization Address [facility] de Phone Number [facility] [address] [place] [address], [place] [phone] * Vitamin B1 (05/26/2024 9:29 AM EST) [facility] Vitamin B1 Whole Blood 86 38 - 122 ug/L 05/30/2024 9:22 AM EST [facility] Comment: This test was developed and the performance characteristics determined by [facility]. It has not been cleared or approved by the FDA. The laboratory is regulated under CLIA as qualified to perform high-complexity testing. This test is used for patient testing purposes. It should not be regarded as investigational or for research. Test performed at [facility], [address] , [place], [place] ??[address] ? [phone] Tasha Leal MD, PhD - Travel Administrator Blood Venous blood specimen / Unknown Venipuncture / Unknown 05/26/2024 9:29 AM EST 05/26/2024 9:29 AM EST us Rosemarie Hererra MD LAB BLOOD ORDERABLES Fi nal Result [place] [address] * Magnesium (05/26/2024 9:29 AM EST) Pathologist [facility] Magnesium 2.1 1.9 - 2.6 mg/dL LAB CHEMISTRY METHOD 05/26/2024 2:47 PM EST [facility] Blood Venous blood specimen / Unknown Venipuncture / Unknown 05/26/2024 9:29 AM EST 05/26/2024 9:29 AM EST us Rosemarie Herrera MD LAB BLOOD ORDERABLES Fi nal Result Performing Organization Address [facility] de Phone Number [facility] [address] [place] [address], [place] [phone] * (ABNORMAL) Hemoglobin A1c (05/26/2024 9:29 AM EST) [facility] Hemoglobin A1C 7.0(H) <6.5 % LAB CHEMISTRY METHOD 05/26/2024 7:52 PM EST [facility] Mean Bld Glu Estim. 154 mg/dL LAB CHEMISTRY METHOD 05/26/2024 7:52 PM EST [facility] Blood Venous blood specimen / Unknown Venipuncture / Unknown 05/26/2024 9:29 AM EST 05/26/2024 9:29 AM EST us Rosemarie Herrera MD LAB BLOOD ORDERABLES Fi nal Result Performing Organization Address [facility]/ZIP Co de Phone Number [facility] [address] [place] [address], [place] [phone] * Folate (05/26/2024 9:29 AM EST) [facility] Folate 14.8 2.8 - 17.0 ng/ml LAB CHEMISTRY METHOD 05/26/2024 3:11 PM EST [facility] Blood Venous blood specimen / Unknown Venipuncture / Unknown 05/26/2024 9:29 AM EST 05/26/2024 9:29 AM EST us Rosemarie Herrera MD LAB BLOOD ORDERABLES Fi nal Result [facility] [address] [place] [address], [place] [phone] * Ferritin (05/26/2024 9:29 AM EST) [facility] Ferritin 197 26 - 388 ng/mL LAB CHEMISTRY METHOD 05/26/2024 3:11 PM EST [facility] Blood Venous blood specimen / Unknown Venipuncture / Unknown 05/26/2024 9:29 AM EST 05/26/2024 9:29 AM EST us Rosemarie Herrera MD LAB BLOOD ORDERABLES Fi nal Result Performing Organization Address [facility]/ZIP Co de Phone Number [facility] [address] [place] [address], [place] [phone] * Vitamin B12 (05/26/2024 9:29 AM EST) [facility] Vitamin B-12 375 250 - 900 pcg/mL LAB CHEMISTRY METHOD 05/26/2024 3:11 PM EST [facility] Blood Venous blood specimen / Unknown Venipuncture / Unknown 05/26/2024 9:29 AM EST 05/26/2024 9:29 AM EST us Rosemarie Herrera MD LAB BLOOD ORDERABLES Fi nal Result [facility] [address] [place] [address], * Cortisol (05/26/2024 9:29 AM EST) [facility] Cortisol 11.6 mcg/dL LAB CHEMISTRY METHOD 05/26/2024 2:57 PM [facility] Blood Venous blood specimen / Unknown Venipuncture / Unknown 05/26/2024 9:29 AM EST 05/26/2024 9:29 AM EST [facility] - 05/26/2024 2:57 PM EST CORTISOL REFERENCE RANGE ?? 8 AM SPEC: ??5.0-23.0 mcg/dL ?? 4 PM SPEC: ??3.0-16.0 mcg/dL ?? 8 PM SPEC: ??<5.0 mcg/dL Rosemarie Herrera MD LAB BLOOD ORDERABLES [facility] Result [facility] [address] [place] [address], [place] [phone] * (ABNORMAL) Comprehensive metabolic panel (05/26/2024 9:29 AM EST) [facility] Sodium 139 133 - 145 mmol/L LAB CHEMISTRY METHOD 05/26/2024 3:11 PM [facility] Potassium 5.1 3.5 - 5.5 mmol/L LAB CHEMISTRY METHOD 05/26/2024 3:11 PM [facility] Chloride 108 96 - 110 mmol/L LAB CHEMISTRY METHOD 05/26/2024 3:11 PM [facility] CO2 25 21 - 32 mmol/L LAB CHEMISTRY METHOD 05/26/2024 3:11 PM [facility] Anion Gap 6 3 - 11 LAB CHEMISTRY METHOD 05/26/2024 3:11 PM [facility] Glucose 138(H) 70 - 100 mg/dL LAB CHEMISTRY METHOD 05/26/2024 3:11 PM [facility] BUN 13 5 - 25 mg/dL LAB CHEMISTRY METHOD 05/26/2024 3:11 PM [facility] Creatinine 0.93 0.70 - 1.30 mg/dL LAB CHEMISTRY METHOD 05/26/2024 3:11 PM [facility] eGFR 101 >=60 mL/min/1. 73m2 LAB CHEMISTRY METHOD 05/26/2024 3:11 PM [facility] Comment:Calculation based on the??Chronic Kidney Disease Epidemiology Collaboration (CKD-EPI) equation refit??without adjustment for race. BUN/Creatinine Ratio 14.0 LAB CHEMISTRY METHOD 05/26/2024 3:11 PM [facility] Calcium 9.3 8.5 - 10.5 mg/dL LAB CHEMISTRY METHOD 05/26/2024 3:11 PM [facility] AST (SGOT) 15 10 - 42 unit/L LAB CHEMISTRY METHOD 05/26/2024 3:11 PM [facility] ALT (SGPT) 36 10 - 60 unit/L LAB CHEMISTRY METHOD 05/26/2024 3:11 PM [facility] Alkaline Phosphatase 74 42 - 121 unit/L LAB CHEMISTRY METHOD 05/26/2024 3:11 PM [facility] Total Protein 7.3 6.0 - 8.0 g/dL LAB CHEMISTRY METHOD 05/26/2024 3:11 PM [facility] Albumin 3.9 3.2 - 5.0 g/dL LAB CHEMISTRY METHOD 05/26/2024 3:11 PM [facility] Total Bilirubin 0.4 0.0 - 1.4 mg/dL LAB CHEMISTRY METHOD 05/26/2024 3:11 PM [facility] Blood Venous blood specimen / Unknown Venipuncture / Unknown 05/26/2024 9:29 AM EST 05/26/2024 9:29 AM EST Rosemarie Herrera MD LAB BLOOD ORDERABLES Fi nal Result [facility] [address] [place] [address], [place] [phone] from Last 3 Months Insurance [facility] [employer] Care Teams Option Trader Relationship Specialty Start Date End Date Lee Díaz PA PCP - General 03/01/23
--- OUTSIDE RECORDS SUMMARY | 2024-07-10 12:40 | XMS_ITS | Encounter Summary ---
Author Organization [facility] Address [address] [place] [address] Care Team Providers Care Concrete Placement Equipment Operator Name Role Phone Lee Díaz Primary Care Provider Reason for Visit * Imaging (Routine) - Authorized Specialty Diagnoses / Procedures Referred By Viv ann Referred To Contact Radiology Diagnoses Morbid obesity with BMI of 45.0-49.9, adult (CMS/[facility]) Gastroesophageal reflux disease, unspecified whether esophagitis present Procedures XR UGI w Air Contrast XR UGI w Single Contrast Rosemarie Herrera MD [address] [address] Phone: tel: fax: [facility] Ultrasound [address] [place] [address] Phone: tel: Referral ID Status Reason Start Date Expiration Date V isits Requested Visits Authorized [id number] Authorized 05/03/2024 05/03/2025 1 1 Encounter Details Date Type Department Care Team (Latest Contact Info) Description 07/06/2024 7:39 AM EST - 07/06/2024 11:59 PM EST Hospital Encounter [facility] Xray [address] [place] [address] Morbid obesity with BMI of 45.0-49.9, adult ([facility]/HCC); Gastroesophageal reflux disease, unspecified whether esophagitis present Discharge Disposition: Home or Self Care Social History Tobacco Use Types Packs/Day Years Used Date Smoking Tobacco: Never Smokeless Tobacco: Never Sex and Gender Information Value Date Recorded Sex Assigned at Not on file Legal Sex Male 8:58 PM EST Gender Identity Not on file Sexual Orientation Not on file documented as of this encounter Medications at Time of Discharge atorvastatin (LIPITOR) 20 mg tablet TAKE 1 TABLET BY MOUTH AT BEDTIME 07/07/2023 ergocalciferol (VITAMIN D-2) 1,250 mcg (50,000 unit) capsule Take 1 capsule (50,000 Units total) by mouth 1 (one) time per week. 12 each 06/07/2024 FreeStyle Gold 3 Plus Sensor device USE 1 EACH BY OTHER ROUTE SEE ADMIN INSTRUCTIONS. USE DIRECTED 2 each 2 06/05/2024 FreeStyle Gold 3 Plus Sensor device Inject 1 EA into the skin every 14 (fourteen) days. 04/09/2024 glucose sensor,implant-de xamet device 1 Each by Other route See Admin Instructions. USE DIRECTED 02/08/2024 insulin glargine-yfgn 100 unit/mL (3 mL) injectionIndicati ons:Class 3 severe obesity with serious comorbidity and body mass index (BMI) of 45.0 to 49.9 in adult, unspecified obesity type (CMS/HCC) INJECT 30-32 UNITS INTO THE SKIN DAILY. 30 mL 1 06/19/2024 lisinopriL (PRINIVIL,ZESTRIL ) 5 mg tablet Take 1 tablet (5 mg total) by mouth 1 (one) time each day. 05/25/2023 metFORMIN (GLUCOPHAGE) 1,000 mg tablet Take 1 Tablet by mouth 2 times daily (with meals). 06/09/2023 Ozempic 1 mg/dose (4 mg/3 mL) injection pen INJECT 1MG INTO THE SKIN ONCE A WEEK 3 mL 1 05/12/2024 documented as of this encounter Discharge Disposition Disposition Code Departure Means Destination Home or Self Care documented in this encounter Plan of Treatment Upcoming Encounters Date Type Department Care Team (Late st Contact Info) Description 07/25/2024 8:00 AM EST Office Visit Endocrinology - [place] [address] [place] [address] Priti Gutierrez PA [address] [place] [address] documented as of this encounter Procedures Procedure Name Priority Date/Time Associated Diagnosis Comments XR UGI W AIR CONTRAST Routine 07/06/2024 8:27 AM EST Morbid obesity with BMI of 45.0-49.9, adult ([facility]) Gastroesophageal reflux disease, unspecified whether esophagitis present documented in this encounter Results * XR UGI w Air Contrast [...] Signed Date: 07/06/2024 10:25 ET Workstation ID: [id number] Transcribed By: Self Edit Transcribed Date: 07/06/2024 10:25 ET Impressions 07/06/2024 10:11 AM EST Normal double contrast upper GI examination. -------- FINAL REPORT -------- Dictated By: Maral Solares Dictated Date: 07/06/2024 10:03 ET Assigned Physician: Christopher Aguilar Reviewed and Electronically Signed By: Christopher Aguilar Signed Date: 07/06/2024 10:11 ET Workstation ID: [id number] Transcribed By: Self Edit Transcribed Date: 07/06/2024 10:05 ET Resident/PA/RUG SETTER AXMINSTER: Maral Solares Narrative 07/06/2024 10:11 AM EST FINDINGS: Double contrast UGI performed. COMPARISON: None HISTORY: Patient is a 49-year-old male with no significant past medical history, preop gastric bypass. [facility] radiographs: Cutting And Printing Machine Operator AP radiograph of the abdomen obtained. Right [...] no significant past medicalhistory, preop gastric bypass. [facility] radiographs: Cutting And Printing Machine Operator AP radiograph of the abdomen obtained. Rightupper [...] Signed Date: 07/06/2024 10:11 ET Workstation ID: [id number] Transcribed By: Self Edit Transcribed Date: 07/06/2024 10:05 ET Resident/PA/RUG SETTER AXMINSTER: Maral Solares us Rosemarie Herrera MD IMG FLUOROSCOPY PROCEDU RES Edited Result - Final documented in this encounter Visit Diagnoses Diagnosis Morbid obesity with BMI of 45.0-49.9, adult ([facility]) Gastroesophageal reflux disease, unspecified whether esophagitis present documented in this encounter Administered Medications Inactive Administered Medications - up to 3 most recent administrations Medication Order MAR Action Action Date Dose Rate Site barium sulfate (E-Z-HD) 98 % suspension 143 mL 143 mL (rounded from 142.8571 mL = 340 g), oral, Once in imaging, Starting on Lanie 07/06/24 at 0827, For 1 dose Given 07/06/2024 8:28 AM EST 143 mL barium sulfate (E-Z-PAQUE) 96 % (w/w) suspension 183 mL 183 mL (rounded from 183.3333 mL = 176 g), oral, Once in imaging, Starting on Lanie 07/06/24 at 0827, For 1 dose Given 07/06/2024 8:28 AM EST 183 mL sod bicarb-citric ac-simeth 2.21-1.53 gram/4 gram packet 2 packet 2 packet, oral, Once, On Lanie 07/06/24 at 0845, For 1 dose, Dissolve the contents of a half of a packet on the back of the tongue, wash down with 15 mL of water or juice and repeat with remaining contents. Given 07/06/2024 8:28 AM EST 2 packets documented in this encounter Care Teams Concrete Placement Equipment Operator Relationship Specialty Start Date End Date Lee Díaz PA PCP - General 03/01/23 documented as of this encounter
== END 2024-07-10 12:16 | disposition home or self-care (01) ==
PROVIDERS: PCP Physician Assistant; Visit Provider Physician Assistant
DX: Z00.00 Encounter for general adult medical examination without abnormal findings (principal); E11.65 Type 2 diabetes mellitus with hyperglycemia; Z68.42 Body mass index [BMI] 45.0-49.9, adult; E66.813 Obesity, class 3; F33.0 Major depressive disorder, recurrent, mild; N47.1 Phimosis; I10 Essential (primary) hypertension; E78.00 Pure hypercholesterolemia, unspecified; F41.1 Generalized anxiety disorder; Z23 Encounter for immunization

== ENCOUNTER → 2024-07-10 11:23 | Outpatient (BNVA) | payer OTHER, SELFPAY | PROVIDERS: PCP Physician Assistant; Visit Provider Physician Assistant | DX: Z00.00 Encounter for general adult medical examination without abnormal findings (principal); Z23 Encounter for immunization; N47.1 Phimosis; E11.65 Type 2 diabetes mellitus with hyperglycemia; E66.813 Obesity, class 3; I10 Essential (primary) hypertension; E78.00 Pure hypercholesterolemia, unspecified; F41.1 Generalized anxiety disorder; F33.0 Major depressive disorder, recurrent, mild | CPT/HCPCS: 90471; 90656; 96127; 99396 ==

== ENCOUNTER 2024-07-26 07:28 | Day surgery (SDC) | payer OTHER, SELFPAY ==
[2024-05-09 13:21] VITALS: BMI 45.5
--- NOTE | 2024-05-10 09:17 | HO.ANESPROP2 ---
HPI - Anesthesia Eval Consult details Narrative: 49yo M for Colonoscopy BMI 45 Anesthesia Pre-Procedure Meds Is the patient on any of the following meds?: GLP1/DPP4 PMFSH Active Problems Active Problems: All Active Problems COVID-19 (Acute) Obese (Acute) Annual physical exam (Acute) OMAR (generalized anxiety disorder) (Acute) History of colon polyps (Acute) Chronic constipation (Acute) Anal fissure (Acute) Painful arc syndrome of left shoulder (Acute) Arthritis of left acromioclavicular joint (Acute) Left cervical radiculopathy (Acute) Carpal tunnel syndrome of left wrist (Acute) HTN (hypertension) (Acute) Trigger finger, left middle finger (Acute) Constipation (Acute) MIRIAM (obstructive sleep apnea) (Acute) Hypercholesterolemia (Acute) Diabetes (Acute) Morbid obesity (Acute) Past Medical History Medical History (Updated 05/09/24 @ 13:18 by Amisha Loza RN) MIRIAM (obstructive sleep apnea) Anxiety HTN (hypertension) Diabetes Trapezius muscle strain Numbness and tingling in left hand Acid reflux Right knee pain Bilateral anterior knee pain Balanitis Hand pain Morbid obesity Family History Family History Mother Heart problem Hypertension Father No problems noted. Daughter No problems noted. Daughter No problems noted. Surgical History Surgical History No pertinent past surgical history Social History Social History Housing: Apartment Alcohol intake: current Alcohol intake frequency: holidays/special occasions only Patient Tobacco Use Status: Former Tobacco user Tobacco use type: Cigarette e-Cigarette/Vaping Use: Never Used service: No Current occupational status: unemployed Cognitive needs: No Hearing needs: No Vision needs: No Meds Allergies Allergy/AdvReac Type Severity Reaction Status Date / Time No Known Allergies Allergy Verified 02/13/24 15:16 Home Medications ?Medication ?Instructions ?Recorded ?Confirmed ?Last Taken ?Type insulin glargine 100 unit/mL (3 36 unit subcut QPM 07/07/23 05/09/24 Unknown History mL) subcutaneous pen (Lantus Solostar U-100 Insulin) docusate sodium 100 mg capsule 200 mg PO BEDTIME 05/09/24 05/09/24 Unknown History Exam Height,Weight and Vital Signs: Height 5 ft 8.5 in Weight 137.892 kg Assessment and Plan Assessment Anesthesia Assessment: Chart Reviewed
--- NOTE | 2024-07-24 15:36 | HO.ANESPROP2 ---
Documented by User: Lilian Johnson NP 07/24/24 15:36 HPI - Anesthesia Eval Consult details Narrative: 49yo M for Colonoscopy Anesthesia Pre-Procedure Meds Is the patient on any of the following meds?: GLP1/DPP4 PMFSH Active Problems Active Problems: All Active Problems MDD (major depressive disorder), recurrent episode, mild (Acute) Class 3 obesity (Acute) Phimosis of penis (Acute) COVID-19 (Acute) Obese (Acute) Annual physical exam (Acute) OMAR (generalized anxiety disorder) (Acute) History of colon polyps (Acute) Chronic constipation (Acute) Anal fissure (Acute) Painful arc syndrome of left shoulder (Acute) Arthritis of left acromioclavicular joint (Acute) Left cervical radiculopathy (Acute) Carpal tunnel syndrome of left wrist (Acute) HTN (hypertension) (Acute) Trigger finger, left middle finger (Acute) Constipation (Acute) MIRIAM (obstructive sleep apnea) (Acute) Hypercholesterolemia (Acute) Diabetes (Acute) Past Medical History Medical History (Updated 07/10/24 @ 13:26 by Lee Díaz PA-C) MIRIAM (obstructive sleep apnea) Anxiety HTN (hypertension) Diabetes Trapezius muscle strain Numbness and tingling in left hand Acid reflux Right knee pain Bilateral anterior knee pain Balanitis Hand pain Family History Family History Mother Heart problem Hypertension Father No problems noted. Daughter No problems noted. Daughter No problems noted. Surgical History Surgical History No pertinent past surgical history Social History Social History (Updated 07/10/24 @ 12:04 by Lee Díaz PA-C) Housing: Apartment Are you a primary respiratory care technician to a significant other at home: No Do you presently have visiting nurse or other home services: No Alcohol intake: current Alcohol intake frequency: does not drink Alcohol type: beer Patient Tobacco Use Status: Former Tobacco user Tobacco use type: Cigarette e-Cigarette/Vaping Use: Never Used Use of substances other than those prescribed or required for medical reasons: No Have you been hit, kicked, punched, or otherwise hurt by someone within the past year? If so, by whom?: No Are you DNR?: No Advance Directives: No Advance Directives Information Provided: Yes Recently lost weight without trying: No Nutrition Risks: No Nutritional Risk Poor oral hygiene: No service: No Current occupational status: employed Current occupation: [employer] Cognitive needs: No Hearing needs: No Vision needs: No Meds Allergies Allergy/AdvReac Type Severity Reaction Status Date / Time No Known Allergies Allergy Verified 07/26/24 07:51 Home Medications ?Medication ?Instructions ?Recorded ?Confirmed ?Last Taken ?Type insulin glargine 100 unit/mL (3 36 unit subcut QPM 07/07/23 07/10/24 Unknown History mL) subcutaneous pen (Lantus Solostar U-100 Insulin) docusate sodium 100 mg capsule 200 mg PO BEDTIME 05/09/24 07/10/24 Unknown History semaglutide 1 mg/dose (4 mg/3 mL) 1 mg subcut 07/10/24 07/10/24 07/14/24 History subcutaneous pen injector (Ozempic) Exam Height,Weight and Vital Signs: Height 5 ft 8.5 in Weight 137.892 kg Assessment and Plan Assessment Anesthesia Assessment: Chart Reviewed Documented by User: Shalonda Jones MD 07/26/24 08:13 [facility] Past Medical History Medical History (Updated 07/10/24 @ 13:26 by Lee Díaz PA-C) MIRIAM (obstructive sleep apnea) Anxiety HTN (hypertension) Diabetes Trapezius muscle strain Numbness and tingling in left hand Acid reflux Right knee pain Bilateral anterior knee pain Balanitis Hand pain Family History Family History Mother Heart problem Hypertension Father No problems noted. Daughter No problems noted. Daughter No problems noted. Family history of problems with anesthesia: No Surgical History Surgical History No pertinent past surgical history History of Problems with Anesthesia: No Social History Social History (Updated 07/10/24 @ 12:04 by Lee Díaz PA-C) Housing: Apartment Are you a primary respiratory care technician to a significant other at home: No Do you presently have visiting nurse or other home services: No Alcohol intake: current Alcohol intake frequency: does not drink Alcohol type: beer Patient Tobacco Use Status: Former Tobacco user Tobacco use type: Cigarette e-Cigarette/Vaping Use: Never Used Use of substances other than those prescribed or required for medical reasons: No Have you been hit, kicked, punched, or otherwise hurt by someone within the past year? If so, by whom?: No Are you DNR?: No Advance Directives: No Advance Directives Information Provided: Yes Recently lost weight without trying: No Nutrition Risks: No Nutritional Risk Poor oral hygiene: No service: No Current occupational status: employed Current occupation: [employer] Cognitive needs: No Hearing needs: No Vision needs: No Meds Allergies Allergy/AdvReac Type Severity Reaction Status Date / Time No Known Allergies Allergy Verified 07/26/24 07:51 Home Medications ?Medication ?Instructions ?Recorded ?Confirmed ?Last Taken ?Type insulin glargine 100 unit/mL (3 36 unit subcut QPM 07/07/23 07/10/24 Unknown History mL) subcutaneous pen (Lantus Solostar U-100 Insulin) docusate sodium 100 mg capsule 200 mg PO BEDTIME 05/09/24 07/10/24 Unknown History semaglutide 1 mg/dose (4 mg/3 mL) 1 mg subcut 07/10/24 07/10/24 07/14/24 History subcutaneous pen injector (Ozempic) Exam Airway Mallampati Class: III TM Dist: >3cm Neck ROM: Full Assessment and Plan Assessment Anesthesia Assessment: Anesthesia Plan Discussed Final Anesthetic Review Family History of Problems with Anesthesia: No History of Problems with Anesthesia: No NPO: Yes ASA Class: III Final Preanesthetic Review: No Changes in Pt Med Stat, Meds/Allgs Chart Reviewed, Consent Obtained/Reviewed, Anes Risks/Benef Reviewed and DNR Form (If Appl.) Patient Risk: Intermediate Procedure Risk: Low Anesthetic Plan Anesthetic Plan: TIVA Disposition: Standard PACU
[2024-07-26 07:46] VITALS: BP 143/76; PULSE 85; RESP 14; TEMP 36.8; O2SAT 96; BMI 46.2
[2024-07-26 08:06] LABS: Glucose, Whole Blood 145 mg/dL (60-115)
--- NOTE | 2024-07-26 08:43 | MHC.SHP ---
Pre-Procedural Eval Section A - 24 Hr Update-Section A only Date of Service: 07/26/24 Section B - Complete if H&P > 30 days Chief Complaint: anal fissure,hx colonic polyps,constipation Relevant Family History (Specify if Yes): No Relevant Social History: None Present Medications: see Short Stay Collaborative assessment Medical History: Significant History (MIRIAM (obstructive sleep apnea) Anxiety HTN (hypertension) Diabetes Trapezius muscle strain Numbness and tingling in left hand Acid reflux Right knee pain Bilateral anterior knee pain Balanitis Hand pain) History of Previous Operations: No relevant previous surgery Allergies: Allergies Allergy/AdvReac Type Severity Reaction Status Date / Time No Known Allergies Allergy Verified 07/26/24 07:51 Review of Systems Sugical H&P ROS: Negative: Constitution, Cardiovascular, Respiratory, Neurological, Psychiatric, Hem-Onc, Allergic/Immunologic, Gastrointestinal, Genitourinary, Musculoskeletal, Integumentary, Endocrine and Eyes/Ears/Nose/Throat Exam Surgical H&P Exam: Normal: HEENT, Normal: Heart, Normal: Lungs, Normal: Extremities, Normal: Abdomen, Normal: Skin and Normal: Neurological Plan Diagnosis/Plan: Unchanged I have reviewed the history and physical and performed a pertinent physical examination on my patient. No changes have occurred unless specified. Time Spent With Patient Time: Total time managing care of this patient today ____ minutes.
--- NOTE | 2024-07-26 09:17 | HO.OPN-COLON ---
Colonoscopy Operative Note Operative Note Date of Service: 07/26/24 Narrative: Operative Information Procedure Description: Colonoscopy Indication: screening Anesthesia: MAC COLONOSCOPY Instrument: Olympus variable stiffness Adult scope 190L Colonoscopy Monitoring: Vital signs and clinical assessment, continuous EKG monitoring, Pulse oximetry, Carbon Dioxide monitoring and blood pressure monitoring were done throughout the procedure. Colon withdrawal time was 12 minutes. Procedure: The patient was placed in the left lateral decubitis position and pre-procedure medications were administered. After a digital rectal examination of the ano-rectum, the video colonoscope was inserted into the rectum and advanced through the colon to the cecum/TI. The colonoscope was slowly withdrawn in a retrograde panoramic fashion and the colon mucosa was carefully examined including a retroflexed view of the rectum. Findings and interventions are described below. Procedure Difficulty: difficult Findings: Terminal Ileum-normal Cecum:normal Ascending Colon: normal Transverse Colon -normal Descending Colon:normal Sigmoid Colon: 11 mm pedunculated polyp removed with cold snare Rectum: Retroflexion with small internal hemorrhoids seen, grade I, 5-7 mm sessile polyp removed with cold forceps Anorectum - normal Intervention: cold forceps, cold snare Colon preparation: Corrigan Bowel Preparation Scale Right colon; 2 Transverse colon: 2 Left colon; 1-2 (0 = Unprepared colon segment with mucosa not seen due to solid stool that cannot be cleared. 1 = Portion of mucosa of the colon segment seen, but other areas of the colon segment not well seen due to staining, residual stool and/or opaque liquid. 2 = Minor amount of residual staining, small fragments of stool and/or opaque liquid, but mucosa of colon segment seen well. 3 = Entire mucosa of colon segment seen well with no residual staining, small fragments of stool or opaque liquid) Impression and Post Procedure Diagnosis: colon polyps x 2 internal hemorrhoids Plan: High fiber diet leaflet Avoid straining at stool, epsom salts and sitz bath, anusol supps or cream Repeat Colonoscopy in 1 year deu to fair prep or earlier if clinically indicated --NEXt time use colowrap Above findings were reviewed with the patient and relevant handouts were provided if indicated.
[2024-07-26 09:20] VITALS: BP 101/68; PULSE 90; RESP 18; TEMP 36.8; O2SAT 97
[2024-07-26 09:35] VITALS: BP 136/95; PULSE 87; RESP 18; TEMP 36.6; O2SAT 99
== END 2024-07-26 09:58 | disposition home or self-care (01) ==
PROVIDERS: PCP Physician Assistant; Visit Provider Internal Medicine Gastroenterology
PROC: 0DJD8ZZ Inspection of Lower Intestinal Tract, Via Natural or Artificial Opening Endoscopic (ICD-10-PCS; CPT 45378; principal; 2024-07-26 08:30)
DX: Z12.11 Encounter for screening for malignant neoplasm of colon (principal); K63.5 Polyp of colon; K62.1 Rectal polyp; K64.0 First degree hemorrhoids; Z86.0101 Personal history of adenomatous and serrated colon polyps; K59.09 Other constipation; I10 Essential (primary) hypertension; G47.33 Obstructive sleep apnea (adult) (pediatric); E78.00 Pure hypercholesterolemia, unspecified; E11.9 Type 2 diabetes mellitus without complications; Z79.4 Long term (current) use of insulin; Z79.02 Long term (current) use of antithrombotics/antiplatelets; Z79.84 Long term (current) use of oral hypoglycemic drugs; Z79.899 Other long term (current) drug therapy
CPT/HCPCS: 45385; 45380; 82947; 88305; J2003; J2704

== ENCOUNTER → 2024-07-26 07:28 | Outpatient (BNV) | payer OTHER, SELFPAY | PROVIDERS: PCP Physician Assistant; Visit Provider Internal Medicine Gastroenterology | DX: Z12.11 Encounter for screening for malignant neoplasm of colon (principal); K63.5 Polyp of colon; K62.1 Rectal polyp; K64.0 First degree hemorrhoids | CPT/HCPCS: 45380; 45385 ==

== ENCOUNTER 2024-09-05 14:56 | Outpatient (REF) | payer OTHER, SELFPAY ==
[2024-09-05 17:16] LABS: Estimated Average Glucose 151 mg/dL; Hemoglobin A1C 196.1385 umol/L; Hemoglobin A1c % 6.9 % (<6.0); Total Hemoglobin (HGBA1C) 3807.4722 umol/L
--- OUTSIDE RECORDS SUMMARY | 2024-09-05 18:55 | XMS_ITS | Clinical Summary ---
Author Organization 175 [facility] Address [address] [place] [address] Phone Care Team Providers Care Home Lighting Adviser Name Role Phone Lee Díaz Primary Care [...] 08/15/2024 2:00 PM EDT Telemedicine Bariatric Surgery [address] [phone] Class 3 severe obesity with serious comorbidity and body mass index (BMI) of 45.0 to 49.9 in adult, unspecified obesity type (CMS/HCC) (Primary Dx) 07/28/2024 Telephone Endocrinology - [address] [phone] Armando Cantu MA sensors processed through [employer] 07/25/2024 8:00 AM EST Office Visit Endocrinology - [address] [phone] Priti Gutierrez PA Type 2 diabetes mellitus with hyperglycemia, with long-term current use of insulin (CMS/HCC) (Primary Dx); Class 3 severe obesity with serious comorbidity and body mass index (BMI) of 45.0 to 49.9 in adult, unspecified obesity type (CMS/HCC) 07/06/2024 7:39 AM EST - 07/06/2024 11:59 PM EST Hospital Encounter [facility] Xray [address] [place] [phone] Morbid obesity with BMI of 45.0-49.9, adult (CMS/HCC); Gastroesophageal reflux disease, unspecified whether esophagitis present Discharge Disposition: Home or Self Care 06/15/2024 Telephone Bariatric Surgery [address] [phone] Wendi Mcdonnell MA 06/08/2024 10:00 AM EST Nutrition Bariatric Surgery - [place] [address] [phone] Class 3 severe obesity [...] 1:30 PM EDT Nutrition Bariatric Surgery - [address] [phone] [phone] Health Maintenance Due Date Last Done Comments [...] Morbid obesity with BMI of 45.0-49.9, adult ([facility]) Gastroesophageal reflux disease, unspecified whether esophagitis present COMPREHENSIVE METABOLIC PANEL Routine 05/26/2024 9:29 AM EST Morbid obesity with BMI of 45.0-49.9, adult ([facility]) HEMOGLOBIN A1C Routine 05/26/2024 9:29 AM EST [...] Signed Date: 07/06/2024 10:25 ET Workstation ID: [id number] Transcribed By: Self Edit Transcribed Date: 07/06/2024 10:25 ET Impressions 07/06/2024 10:11 AM EST Normal double contrast upper GI examination. -------- FINAL REPORT -------- Dictated By: Maral Solares Dictated Date: 07/06/2024 10:03 ET Assigned Physician: Christopher Aguilar Reviewed and Electronically Signed By: Christopher Aguilar Signed Date: 07/06/2024 10:11 ET Workstation ID: [id number] Transcribed By: Self Edit Transcribed Date: 07/06/2024 10:05 ET Resident/PA/SALES SUPPORT REPRESENTATIVE: Maral Solares Narrative 07/06/2024 10:11 AM EST FINDINGS: Double contrast UGI performed. COMPARISON: None HISTORY: Patient is a 49-year-old male with no significant past medical history, preop gastric bypass. MATCHER radiographs: [employer] AP radiograph of the abdomen obtained. Right [...] no significant past medicalhistory, preop gastric bypass. MATCHER radiographs: [employer] AP radiograph of the abdomen obtained. Rightupper [...] Signed Date: 07/06/2024 10:11 ET Workstation ID: [id number] Transcribed By: Self Edit Transcribed Date: 07/06/2024 10:05 ET Resident/PA/SALES SUPPORT REPRESENTATIVE: Maral Solares us Rosemarie Herrera MD IMG FLUOROSCOPY PROCEDU RES Edited Result - Final * (ABNORMAL) Lipid panel with reflex to direct LDL (05/26/2024 9:29 AM EST) Cholesterol 184 0 - 200 mg/dL LAB CHEMISTRY METHOD 05/26/2024 2:47 PM EST [facility] Triglycerides 185(H) 0 - 150 mg/dL LAB CHEMISTRY METHOD 05/26/2024 2:47 PM [facility] HDL 47 >=40 mg/dL LAB CHEMISTRY METHOD 05/26/2024 2:47 PM [facility] LDL Calculated 100 0 - 100 mg/dL LAB CHEMISTRY METHOD 05/26/2024 2:47 PM [facility] VLDL Cholesterol Rakesh 37 mg/dL LAB CHEMISTRY METHOD 05/26/2024 2:47 PM [facility] Non HDL Chol. (LDL+VLDL) 137 <145 mg/dL LAB CHEMISTRY METHOD 05/26/2024 2:47 PM [facility] Chol/HDL Ratio 3.9 0.0 - 4.4 LAB CHEMISTRY METHOD 05/26/2024 2:47 PM [facility] Blood Venous blood specimen / Unknown Venipuncture / Unknown 05/26/2024 9:29 AM EST 05/26/2024 9:29 AM EST us Rosemarie Herrera MD LAB BLOOD ORDERABLES Fi nal Result [facility] [address] [place] [address], * (ABNORMAL) Hemoglobin A1c (05/26/2024 9:29 AM EST) Hemoglobin A1C 7.0(H) <6.5 % LAB CHEMISTRY METHOD 05/26/2024 7:52 PM [facility] Mean Bld Glu Estim. 154 mg/dL LAB CHEMISTRY METHOD 05/26/2024 7:52 PM [facility] Blood Venous blood specimen / Unknown Venipuncture / Unknown 05/26/2024 9:29 AM EST 05/26/2024 9:29 AM EST us Rosemarie Herrera MD LAB BLOOD ORDERABLES Fi nal Result [facility] [address] [place] [address], [place] [phone] * (ABNORMAL) Comprehensive metabolic panel (05/26/2024 9:29 AM EST) Sodium 139 133 - 145 mmol/L LAB CHEMISTRY METHOD 05/26/2024 3:11 PM [facility] Potassium 5.1 3.5 - 5.5 mmol/L LAB CHEMISTRY METHOD 05/26/2024 3:11 PM [facility] Chloride 108 96 - 110 mmol/L LAB CHEMISTRY METHOD 05/26/2024 3:11 PM [facility] CO2 25 21 - 32 mmol/L LAB CHEMISTRY METHOD 05/26/2024 3:11 PM [facility] Anion Gap 6 3 - 11 LAB CHEMISTRY METHOD 05/26/2024 3:11 PM [facility] Glucose 138(H) 70 - 100 mg/dL LAB CHEMISTRY METHOD 05/26/2024 3:11 PM [facility] BUN 13 5 - 25 mg/dL LAB CHEMISTRY METHOD 05/26/2024 3:11 PM [facility] Creatinine 0.93 0.70 - 1.30 mg/dL LAB CHEMISTRY METHOD 05/26/2024 3:11 PM [facility] eGFR 101 >=60 mL/min/1. 73m2 LAB CHEMISTRY METHOD 05/26/2024 3:11 PM [facility] Comment:Calculation based on the??Chronic Kidney Disease Epidemiology Collaboration (CKD-EPI) equation refit??without adjustment for race. BUN/Creatinine Ratio 14.0 LAB CHEMISTRY METHOD 05/26/2024 3:11 PM [facility] Calcium 9.3 8.5 - 10.5 mg/dL LAB CHEMISTRY METHOD 05/26/2024 3:11 PM [facility] AST (SGOT) 15 10 - 42 unit/L LAB CHEMISTRY METHOD 05/26/2024 3:11 PM [facility] ALT (SGPT) 36 10 - 60 unit/L LAB CHEMISTRY METHOD 05/26/2024 3:11 PM [facility] Alkaline Phosphatase 74 42 - 121 unit/L LAB CHEMISTRY METHOD 05/26/2024 3:11 PM [facility] Total Protein 7.3 6.0 - 8.0 g/dL LAB CHEMISTRY METHOD 05/26/2024 3:11 PM [facility] Albumin 3.9 3.2 - 5.0 g/dL LAB CHEMISTRY METHOD 05/26/2024 3:11 PM [facility] Total Bilirubin 0.4 0.0 - 1.4 mg/dL LAB CHEMISTRY METHOD 05/26/2024 3:11 PM [facility] Blood Venous blood specimen / Unknown Venipuncture / Unknown 05/26/2024 9:29 AM EST 05/26/2024 9:29 AM EST Rosemarie Herrera MD LAB BLOOD ORDERABLES Fi nal Result [facility] [address] [place] [address], from Last 3 Months or Most Recently Relevant to Health Maintenance Insurance [facility] [employer] Care Teams Home Lighting Adviser Relationship Specialty Start Date End Date Lee Díaz PA [address] [place] [phone] PCP - General Physician Automation Controls Specialist 07/27/24
== END 2024-09-05 14:57 | disposition home or self-care (01) ==
LOC: HO.LAB 14:56
PROVIDERS: PCP Physician Assistant; Visit Provider Urology
DX: N47.1 Phimosis (principal); E11.65 Type 2 diabetes mellitus with hyperglycemia
CPT/HCPCS: 36415; 83036; 99212

== ENCOUNTER 2024-09-05 14:56 | Outpatient (AMB) | payer OTHER, SELFPAY ==
--- NOTE | 2024-09-05 15:12 | MHC.OFFVIS ---
Intake Visit Reasons: circumcision consult Intake Note: Patient is present for CIRCUMCISION CONSULT Urology Medication:NONE Antibiotic Allergy:NONE Blood Thinner:NONE Automatic Corn Grinder Operator Required: No Allergies No Known Allergies Allergy (Verified 09/05/24 15:15) HPI Comments Details: Alfredito is a pleasant male. He is a patient of Dr. Díaz. He seen for the following urologic conditions - balanitis Citizen [place] translation provided by partner Interested in circumcision If HbA1c less than 8.5 could be performed Different state recent HbA1c done with endocrinology showed 6.8 On combination Ozempic, insulin, metformin for control Will have him repeat HbA1c at our facility otherwise can schedule for circumcision Balanitis Newly diagnosed diabetic HbA1c a diagnosis 03/21 12.2 Dyslipidemia Has cracking around foreskin with balanitis Recommend trial of topical therapy May benefit from circumcision Would only be done if HbA1c had a 8.5 Diet modifications discussed [facility] Medical History (Updated 07/10/24 @ 13:26 by Lee Díaz PA-C) MIRIAM (obstructive sleep apnea) Anxiety HTN (hypertension) Diabetes Trapezius muscle strain Numbness and tingling in left hand Acid reflux Right knee pain Bilateral anterior knee pain Balanitis Hand pain Surgical History No pertinent past surgical history Family History Mother Heart problem Hypertension Father No problems noted. Daughter No problems noted. Daughter No problems noted. Social History (Updated 07/10/24 @ 12:04 by Lee Díaz PA-C) Housing: Apartment Are you a primary gericare aide to a significant other at home: No Do you presently have visiting nurse or other home services: No Alcohol intake: current Alcohol intake frequency: does not drink Alcohol type: beer Patient Tobacco Use Status: Former Tobacco user Tobacco use type: Cigarette e-Cigarette/Vaping Use: Never Used service: No Current occupational status: employed Current occupation: [employer] Cognitive needs: No Hearing needs: No Vision needs: No Review of Systems Const Denies chills and Denies fever(s) Card Reports no additional complaints and Denies syncope Resp Denies cough GI Denies abdominal pain and Denies heartburn Reports as per HPI and Denies change in libido Neuro Denies syncope Psych Denies change in libido Endo Denies change in libido Physical Exam Const General: cooperative, healthy appearing, comfortable and no acute distress Orientation/consciousness: patient oriented x3 HEENT Face and sinus: Yes normal facial exam Mouth: moist mucous membranes Neck Neck: Yes normal visual inspection, Yes full ROM and Yes trachea midline Chest Chest palpation & inspection: normal inspection of the chest Resp Effort & Inspection: normal respiratory effort, able to speak in complete sentences and no respiratory distress GI Inspection: Yes normal to inspection Back/Spine/Pelvis Cervical Spine: normal cervical lordosis Thoracic/Lumbar Spine: thoracic and lumbar spine normal to inspection Skin General skin exam: no rashes or lesions noted Neuro General: patient oriented x3, gait normal, tone normal and moves all extremities Extrem General: Yes normal to inspection and Yes capillary refill normal Assessment & Plan Assessment & Plan (1) Phimosis of penis: Code(s): N47.1 - Phimosis Category: Medical Plan Risks, benefits and alternatives to therapy were discussed. These include but are not limited to infection, bleeding, damage to local organs and tissues, need for further interventions. Anesthetic risks regarding cardiac arrhythmia, blood clots, and potential mortality were discussed. The patient understands the typical recovery time and the outpatient nature of the procedure. After consideration of these risks the patient gives full informed consent and they wish to move ahead with the procedure. - circumcision Orders: Orders Hemoglobin A1c Today E11.65 - Type 2 diabetes mellitus with hyperglycemia, E11.9 - Type 2 diabetes mellitus without complications Patient Instructions: This note is constructed using voice recognition software. While every effort has been made to ensure accuracy cisco unified communications engineer errors may have been included. Imaging studies, laboratory and physical exam results were discussed and reviewed in detail. No major barriers to patient understanding were identified. An opportunity to ask questions regarding the treatment plan was provided. All questions were answered. The patient expressed understanding and agreement with the above treatment plan. The patient is aware they should contact our office by phone for worsening of their current condition or the appearance of new urologic symptoms. Compliance is encouraged with any medications and followup testing that is ordered. It is a privilege to participate in the urologic care of your patient. If you have any questions or concerns regarding treatment for the above conditions, or other urologic issues, please do not hesitate to contact me. The office telephone contact is [phone]. Sincerely, Dr Tevin Silver MD, [facility] - Urology Compassionate Specialist Care for the Genitourinary System Coding Level of Care Code Est Pt Level 4 (54402) Diagnoses Phimosis of penis N47.1
--- OUTSIDE RECORDS SUMMARY | 2024-09-05 18:03 | XMS_ITS | Clinical Summary ---
Author Organization [address] [facility] Address [address] [place] [address] Phone Care Team Providers Care Hoisting Pile Driving Engineer Name Role Phone Lee Díaz Primary Care Provider Allergies No known active allergies Medications glucose sensor,implant- dexamet device 1 Each by Other route See Admin Instructions . USE DIRECTED 02/08/20 24 Active atorvastatin (LIPITOR) 20 mg tablet TAKE 1 TABLET BY MOUTH AT BEDTIME 07/07/19 24 Active lisinopriL (PRINIVIL,ZESTR IL) 5 mg tablet Take 1 tablet (5 mg total) by mouth 1 (one) time each day. 05/25/20 23 Active metFORMIN (GLUCOPHAGE) 1,000 mg tablet Take 1 Tablet by mouth 2 times daily (with meals). 06/09/19 24 Active ergocalciferol (VITAMIN D-2) 1,250 mcg (50,000 unit) capsule Take 1 capsule (50,000 Units total) by mouth 1 (one) time per week. 12 each 06/07/19 25 026 Active insulin glargine-yfgn 100 unit/mL (3 mL) injectionIndica tions:Class 3 severe obesity with serious comorbidity and body mass index (BMI) of 45.0 to 49.9 in adult, unspecified obesity type INJECT 30-32 UNITS INTO THE SKIN DAILY. 30 mL 1 06/19/19 25 Active blood-glucose sensor (FreeStyle Gold 3 Sensor) device Box = Kit = EA, use one sensor every 14 days. 6 each 3 07/25/19 25 Active Ozempic 1 mg/dose (4 mg/3 mL) injection pen INJECT 1 MG INTO THE SKIN ONE TIME PER WEEK 9 mL 1 08/15/19 Active Ozempic 1 mg/dose (4 mg/3 mL) injection pen INJECT 1 MG INTO THE SKIN ONE TIME PER WEEK 3 mL 07/11/19 025 Discontinued Active Problems Problem Noted Date Diagnosed Date Class 3 severe obesity with serious comorbidity and body mass index (BMI) of 45.0 to 49.9 in adult 05/08/2024 Encounters Date Type Department Care Team Description 08/15/2024 2:00 PM EDT Telemedicine Bariatric Surgery [address] [phone] Class 3 severe obesity with serious comorbidity and body mass index (BMI) of 45.0 to 49.9 in adult, unspecified obesity type (CMS/HCC) (Primary Dx) 07/28/2024 Telephone Endocrinology - [address] [phone] Armando Cantu MA sensors processed through [employer] 07/25/2024 8:00 AM EST Office Visit Endocrinology - [address] [phone] Priti Gutierrez PA Type 2 diabetes mellitus with hyperglycemia, with long-term current use of insulin (CMS/HCC) (Primary Dx); Class 3 severe obesity with serious comorbidity and body mass index (BMI) of 45.0 to 49.9 in adult, unspecified obesity type (CMS/HCC) 07/06/2024 7:39 AM EST - 07/06/2024 11:59 PM EST Hospital Encounter [facility] Xray [address] [place] [phone] Morbid obesity with BMI of 45.0-49.9, adult (CMS/HCC); Gastroesophageal reflux disease, unspecified whether esophagitis present Discharge Disposition: Home or Self Care 06/15/2024 Telephone Bariatric Surgery [address] [phone] Wendi Mcdonnell MA 06/08/2024 10:00 AM EST Nutrition Bariatric Surgery - [place] [address] [phone] Class 3 severe obesity without serious comorbidity with body mass index (BMI) of 45.0 to 49.9 in adult, unspecified obesity type (CMS/HCC) (Primary Dx) from Last 3 Months Social History Tobacco Use Types Packs/Day Years Used Date Smoking Tobacco: Never Smokeless Tobacco: Never Tobacco Cessation:Counseling Given: Not Answered Sex and Gender Information Value Date Recorded Sex Assigned at Not on file Legal Sex Male 8:58 PM EST Gender Identity Not on file Sexual Orientation Not on file Obstetrics History Last Filed Vital Signs Vital Sign Reading Time Taken Comments Blood Pressure 112/80 07/25/2024 8:11 AM EST Pulse 84 07/25/2024 8:11 AM EST Temperature 35.9 ??C (96.6 ??F) 07/25/2024 8:11 AM ES T Respiratory Rate 15 07/25/2024 8:11 AM EST Oxygen Saturation 96% 07/25/2024 8:11 AM EST Inhaled Oxygen Concentration - - Weight 139 kg (306 lb) 08/15/2024 2:00 PM EDT Height 172.7 cm (5' 8 ) 07/25/2024 8:11 AM EST Body Mass Index 46.53 07/25/2024 8:11 AM EST Plan of Treatment Upcoming Encounters Date Type Department Care Team (Late st Contact Info) Description 09/14/2024 1:30 PM EDT Nutrition Bariatric Surgery - [address] [phone] [phone] Health Maintenance Due Date Last Done Comments Diabetes: Annual Foot Exam 1985 Diabetes: Annual Retina Eye Exam 1985 Hepatitis B Vaccines (1 of 3 - 19+ 3-dose series) 1994 Colorectal Cancer Screening: Colonoscopy 06/25/2023 Depression Screening 06/25/2023 HIV Screening 06/25/2023 Hepatitis C Screening 06/25/2023 Social Influencers of Health Screening 06/25/2023 COVID-19 Vaccine (2023-2 5 season) 2024 Diabetes: Annual Urine Albumin-Creatinine Ratio (uACR) 05/03/2024 Diabetes: Blood Sugar Contro l Test (HGBA1C) 11/24/2024 05/26/2024, 10/29/2023, 10/29/2023 Diabetes: Annual GFR (Glomerular Filtration Rate) 05/26/2025 05/26/2024, 10/29/2023, 10/29/2023 Cholesterol Screening (Lipid Panel) 05/26/2029 05/26/2024 DTaP,Tdap,and Td Vaccines (2 - Td or Tdap) 01/19/2032 01/18/2022 Pneumococcal Vaccine: Pediatrics (0 to 5 Years) and At-Risk Patients (6 to 64 Years) Completed 07/07/2023 Influenza Vaccine Completed 07/10/2024, 07/07/2023 HIB Vaccines Aged Out No longer eligi [...] age to complete this topic Meningococcal B Vaccine Aged Out No l onger eligible based on patient's age to complete [...] Morbid obesity with BMI of 45.0-49.9, adult ([facility]) Gastroesophageal reflux disease, unspecified whether esophagitis present COMPREHENSIVE METABOLIC PANEL Routine 05/26/2024 9:29 AM EST Morbid obesity with BMI of 45.0-49.9, adult ([facility]) HEMOGLOBIN A1C Routine 05/26/2024 9:29 AM EST Morbid obesity with BMI of 45.0-49.9, adult (CMS/HCC) LIPID PANEL WITH REFLEX TO DIRECT LDL Routine 05/26/2024 9:29 AM EST Morbid obesity with BMI of 45.0-49.9, adult (CMS/HCC) from Last 3 Months or Most Recently Relevant to Health Maintenance Results * XR UGI w Air Contrast (07/06/2024 8:27 AM EST) Anatomical Region Laterality Modality Body Radiographic Liliaan ging 07/06/2024 10:0 3 AM EST Addenda Addendum by Christopher Aguilar MD on 07/06/2024 10:[address] Teleradiology -------- ADDENDUM -------- Dictated By: Christopher Aguilar Dictated Date: 07/06/2024 10:25 ET Assigned Physician: Christopher Aguilar Reviewed and Electronically Signed By: Christopher Aguilar Signed Date: 07/06/2024 10:25 ET Workstation ID: [id number] Transcribed By: Self Edit Transcribed Date: 07/06/2024 10:25 ET Impressions 07/06/2024 10:11 AM EST Normal double contrast upper GI examination. -------- FINAL REPORT -------- Dictated By: Maral Solares Dictated Date: 07/06/2024 10:03 ET Assigned Physician: Christopher Aguilar Reviewed and Electronically Signed By: Christopher Aguilar Signed Date: 07/06/2024 10:11 ET Workstation ID: [id number] Transcribed By: Self Edit Transcribed Date: 07/06/2024 10:05 ET Resident/PA/BENCH WORKER HOLLOW HANDLE: Maral Solares Narrative 07/06/2024 10:11 AM EST FINDINGS: Double contrast UGI performed. COMPARISON: None HISTORY: Patient is a 49-year-old male with no significant past medical history, preop gastric bypass. SAP PAYROLL CONSULTANT radiographs: Research Quality Assurance Specialist AP radiograph of the abdomen obtained. Right [...] no significant past medicalhistory, preop gastric bypass. SAP PAYROLL CONSULTANT radiographs: Research Quality Assurance Specialist AP radiograph of the abdomen obtained. Rightupper [...] Signed Date: 07/06/2024 10:11 ET Workstation ID: [id number] Transcribed By: Self Edit Transcribed Date: 07/06/2024 10:05 ET Resident/PA/BENCH WORKER HOLLOW HANDLE: Maral Solares us Rosemarie Herrera MD IMG FLUOROSCOPY PROCEDU RES Edited Result - Final * (ABNORMAL) Lipid panel with reflex to direct LDL (05/26/2024 9:29 AM EST) Cholesterol 184 0 - 200 mg/dL LAB CHEMISTRY METHOD 05/26/2024 2:47 PM EST [facility] Triglycerides 185(H) 0 - 150 mg/dL LAB CHEMISTRY METHOD 05/26/2024 2:47 PM [facility] HDL 47 >=40 mg/dL LAB CHEMISTRY METHOD 05/26/2024 2:47 PM [facility] LDL Calculated 100 0 - 100 mg/dL LAB CHEMISTRY METHOD 05/26/2024 2:47 PM [facility] VLDL Cholesterol Rakesh 37 mg/dL LAB CHEMISTRY METHOD 05/26/2024 2:47 PM [facility] Non HDL Chol. (LDL+VLDL) 137 <145 mg/dL LAB CHEMISTRY METHOD 05/26/2024 2:47 PM [facility] Chol/HDL Ratio 3.9 0.0 - 4.4 LAB CHEMISTRY METHOD 05/26/2024 2:47 PM [facility] Blood Venous blood specimen / Unknown Venipuncture / Unknown 05/26/2024 9:29 AM EST 05/26/2024 9:29 AM EST us Rosemarie Herrera MD LAB BLOOD ORDERABLES Fi nal Result [facility] [address] [place] [address], * (ABNORMAL) Hemoglobin A1c (05/26/2024 9:29 AM EST) Hemoglobin A1C 7.0(H) <6.5 % LAB CHEMISTRY METHOD 05/26/2024 7:52 PM [facility] Mean Bld Glu Estim. 154 mg/dL LAB CHEMISTRY METHOD 05/26/2024 7:52 PM [facility] Blood Venous blood specimen / Unknown Venipuncture / Unknown 05/26/2024 9:29 AM EST 05/26/2024 9:29 AM EST us Rosemarie Herrera MD LAB BLOOD ORDERABLES Fi nal Result [facility] [address] [place] [address], [place] [phone] * (ABNORMAL) Comprehensive metabolic panel (05/26/2024 9:29 AM EST) Sodium 139 133 - 145 mmol/L LAB CHEMISTRY METHOD 05/26/2024 3:11 PM [facility] Potassium 5.1 3.5 - 5.5 mmol/L LAB CHEMISTRY METHOD 05/26/2024 3:11 PM [facility] Chloride 108 96 - 110 mmol/L LAB CHEMISTRY METHOD 05/26/2024 3:11 PM [facility] CO2 25 21 - 32 mmol/L LAB CHEMISTRY METHOD 05/26/2024 3:11 PM [facility] Anion Gap 6 3 - 11 LAB CHEMISTRY METHOD 05/26/2024 3:11 PM [facility] Glucose 138(H) 70 - 100 mg/dL LAB CHEMISTRY METHOD 05/26/2024 3:11 PM [facility] BUN 13 5 - 25 mg/dL LAB CHEMISTRY METHOD 05/26/2024 3:11 PM [facility] Creatinine 0.93 0.70 - 1.30 mg/dL LAB CHEMISTRY METHOD 05/26/2024 3:11 PM [facility] eGFR 101 >=60 mL/min/1. 73m2 LAB CHEMISTRY METHOD 05/26/2024 3:11 PM [facility] Comment:Calculation based on the??Chronic Kidney Disease Epidemiology Collaboration (CKD-EPI) equation refit??without adjustment for race. BUN/Creatinine Ratio 14.0 LAB CHEMISTRY METHOD 05/26/2024 3:11 PM [facility] Calcium 9.3 8.5 - 10.5 mg/dL LAB CHEMISTRY METHOD 05/26/2024 3:11 PM [facility] AST (SGOT) 15 10 - 42 unit/L LAB CHEMISTRY METHOD 05/26/2024 3:11 PM [facility] ALT (SGPT) 36 10 - 60 unit/L LAB CHEMISTRY METHOD 05/26/2024 3:11 PM [facility] Alkaline Phosphatase 74 42 - 121 unit/L LAB CHEMISTRY METHOD 05/26/2024 3:11 PM [facility] Total Protein 7.3 6.0 - 8.0 g/dL LAB CHEMISTRY METHOD 05/26/2024 3:11 PM [facility] Albumin 3.9 3.2 - 5.0 g/dL LAB CHEMISTRY METHOD 05/26/2024 3:11 PM [facility] Total Bilirubin 0.4 0.0 - 1.4 mg/dL LAB CHEMISTRY METHOD 05/26/2024 3:11 PM [facility] Blood Venous blood specimen / Unknown Venipuncture / Unknown 05/26/2024 9:29 AM EST 05/26/2024 9:29 AM EST Rosemarie Herrera MD LAB BLOOD ORDERABLES Fi nal Result [facility] [address] [place] [address], from Last 3 Months or Most Recently Relevant to Health Maintenance Insurance [facility] Care Teams Hoisting Pile Driving Engineer Relationship Specialty Start Date End Date Lee Díaz PA [address] [place] [phone] PCP - General Physician Client Service Representative 07/27/24
== END 2024-09-05 15:57 | disposition home or self-care (01) ==
LOC: HO.HUSH 14:57
PROVIDERS: PCP Physician Assistant; Visit Provider Urology
DX: N47.1 Phimosis (principal)
CPT/HCPCS: 99214

== ENCOUNTER 2024-12-11 07:49 | Day surgery (SDC) | payer OTHER, SELFPAY ==
[2024-12-07 09:32] VITALS: BMI 47.3
--- NOTE | 2024-12-07 15:40 | HO.ANESPROP2 ---
Documented by User: Keisha Pollack NP 12/07/24 15:44 HPI - Anesthesia Eval Consult details Narrative: 49 yr old male for Circumcision. Type 2 Diabetes: on insulin glargine, semaglutide, metformin; A1C 6.9% 08/2024. MIRIAM BMI:47 [facility] Active Problems Active Problems: All Active Problems (Updated 07/10/24 @ 13:26 by Lee Díaz PA-C) MDD (major depressive disorder), recurrent episode, mild (Acute) Class 3 obesity (Acute) Phimosis of penis (Acute) COVID-19 (Acute) Obese (Acute) Annual physical exam (Acute) OMAR (generalized anxiety disorder) (Acute) History of colon polyps (Acute) Chronic constipation (Acute) Anal fissure (Acute) Painful arc syndrome of left shoulder (Acute) Arthritis of left acromioclavicular joint (Acute) Left cervical radiculopathy (Acute) Carpal tunnel syndrome of left wrist (Acute) HTN (hypertension) (Acute) Trigger finger, left middle finger (Acute) Constipation (Acute) MIRIAM (obstructive sleep apnea) (Acute) Hypercholesterolemia (Acute) Diabetes (Acute) Past Medical History Medical History (Updated 07/10/24 @ 13:26 by Lee Díaz PA-C) MIRIAM (obstructive sleep apnea) Anxiety HTN (hypertension) Diabetes Trapezius muscle strain Numbness and tingling in left hand Acid reflux Right knee pain Bilateral anterior knee pain Balanitis Hand pain Family History Family History Mother Heart problem Hypertension Father No problems noted. Daughter No problems noted. Daughter No problems noted. Family history of problems with anesthesia: No Surgical History Surgical History No pertinent past surgical history History of Problems with Anesthesia: No Social History Social History (Updated 07/10/24 @ 12:04 by Lee Díaz PA-C) Housing: Apartment Are you a primary childcare provider to a significant other at home: No Do you presently have visiting nurse or other home services: No Alcohol intake: current Alcohol intake frequency: does not drink Alcohol type: beer Patient Tobacco Use Status: Former Tobacco user Tobacco use type: Cigarette e-Cigarette/Vaping Use: Never Used Use of substances other than those prescribed or required for medical reasons: No Are you DNR?: No Advance Directives: No Advance Directives Information Provided: Yes Poor oral hygiene: No service: No Current occupational status: employed Current occupation: [employer] Cognitive needs: No Hearing needs: No Vision needs: No Meds Allergies Allergy/AdvReac Type Severity Reaction Status Date / Time No Known Allergies Allergy Verified 09/05/24 15:15 Home Medications ?Medication ?Instructions ?Recorded ?Confirmed ?Last Taken ?Type insulin glargine 100 unit/mL (3 36 unit subcut QPM 07/07/23 07/10/24 Unknown History mL) subcutaneous pen (Lantus Solostar U-100 Insulin) semaglutide 1 mg/dose (4 mg/3 mL) 1 mg subcut 07/10/24 07/10/24 11/29/24 History subcutaneous pen injector (Ozempic) Exam Height,Weight and Vital Signs: Height 5 ft 8 in Weight 141.067 kg Assessment and Plan Final Anesthetic Review Family History of Problems with Anesthesia: No History of Problems with Anesthesia: No Documented by User: Lilian Johnson NP 12/08/24 10:38 HPI - Anesthesia Eval Anesthesia Pre-Procedure Meds Is the patient on any of the following meds?: GLP1/DPP4 [facility] Past Medical History Medical History (Updated 07/10/24 @ 13:26 by Lee Díaz PA-C) MIRIAM (obstructive sleep apnea) Anxiety HTN (hypertension) Diabetes Trapezius muscle strain Numbness and tingling in left hand Acid reflux Right knee pain Bilateral anterior knee pain Balanitis Hand pain Family History Family History Mother Heart problem Hypertension Father No problems noted. Daughter No problems noted. Daughter No problems noted. Surgical History Surgical History No pertinent past surgical history Social History Social History (Updated 07/10/24 @ 12:04 by Lee Díaz PA-C) Housing: Apartment Are you a primary childcare provider to a significant other at home: No Do you presently have visiting nurse or other home services: No Alcohol intake: current Alcohol intake frequency: does not drink Alcohol type: beer Patient Tobacco Use Status: Former Tobacco user Tobacco use type: Cigarette e-Cigarette/Vaping Use: Never Used Use of substances other than those prescribed or required for medical reasons: No Are you DNR?: No Advance Directives: No Advance Directives Information Provided: Yes Poor oral hygiene: No service: No Current occupational status: employed Current occupation: [employer] Cognitive needs: No Hearing needs: No Vision needs: No Meds Allergies Allergy/AdvReac Type Severity Reaction Status Date / Time No Known Allergies Allergy Verified 09/05/24 15:15 Home Medications ?Medication ?Instructions ?Recorded ?Confirmed ?Last Taken ?Type insulin glargine 100 unit/mL (3 36 unit subcut QPM 07/07/23 07/10/24 Unknown History mL) subcutaneous pen (Lantus Solostar U-100 Insulin) semaglutide 1 mg/dose (4 mg/3 mL) 1 mg subcut 07/10/24 07/10/24 11/29/24 History subcutaneous pen injector (Ozempic) Documented by User: Jerome Sprague MD 12/11/24 09:04 [facility] Past Medical History Medical History (Updated 07/10/24 @ 13:26 by Lee Díaz PA-C) MIRIAM (obstructive sleep apnea) Anxiety HTN (hypertension) Diabetes Trapezius muscle strain Numbness and tingling in left hand Acid reflux Right knee pain Bilateral anterior knee pain Balanitis Hand pain Family History Family History Mother Heart problem Hypertension Father No problems noted. Daughter No problems noted. Daughter No problems noted. Surgical History Surgical History No pertinent past surgical history Social History Social History (Updated 07/10/24 @ 12:04 by Lee Díaz PA-C) Housing: Apartment Are you a primary childcare provider to a significant other at home: No Do you presently have visiting nurse or other home services: No Alcohol intake: current Alcohol intake frequency: does not drink Alcohol type: beer Patient Tobacco Use Status: Former Tobacco user Tobacco use type: Cigarette e-Cigarette/Vaping Use: Never Used Use of substances other than those prescribed or required for medical reasons: No Are you DNR?: No Advance Directives: No Advance Directives Information Provided: Yes Poor oral hygiene: No service: No Current occupational status: employed Current occupation: [employer] Cognitive needs: No Hearing needs: No Vision needs: No Meds Allergies Allergy/AdvReac Type Severity Reaction Status Date / Time No Known Allergies Allergy Verified 09/05/24 15:15 Home Medications ?Medication ?Instructions ?Recorded ?Confirmed ?Last Taken ?Type insulin glargine 100 unit/mL (3 36 unit subcut QPM 07/07/23 07/10/24 Unknown History mL) subcutaneous pen (Lantus Solostar U-100 Insulin) semaglutide 1 mg/dose (4 mg/3 mL) 1 mg subcut 07/10/24 07/10/24 11/29/24 History subcutaneous pen injector (Ozempic) Exam Airway Mallampati Class: III TM Dist: >3cm Neck ROM: Full Loose/Missing/Broken Teeth: No Heart: RRR Lungs: CTA Assessment and Plan Assessment Anesthesia Assessment: Anesthesia Plan Discussed and Chart Reviewed Final Anesthetic Review NPO: Yes ASA Class: III Final Preanesthetic Review: No Changes in Pt Med Stat, Meds/Allgs Chart Reviewed, Consent Obtained/Reviewed and Anes Risks/Benef Reviewed Patient Risk: Intermediate Procedure Risk: Low Anesthetic Plan Anesthetic Plan: GA Disposition: Standard PACU
[2024-12-11] VITALS (8 sets, daily range): BP systolic 104–149; BP diastolic 60–78; PULSE 80–98; RESP 16–18; TEMP 36.1–36.5; O2SAT 93–97; BMI 49.7
[2024-12-11 08:56] LABS: Glucose, Whole Blood 217 mg/dL (60-115)
[2024-12-11] MEDS: Lactated Ringers 1,000 ML 100 ML IVCONT (09:33)
--- NOTE | 2024-12-11 09:43 | P.HPSUR_ITS ---
Pre-Procedural Eval Section A - 24 Hr Update-Section A only Date of Service: 12/11/24 The patient is an INPATIENT: No Changes since office visit: No Cold of Flu in the past 2 weeks, No New Medical Problems, No Changes in Medication and No Patient answered all questions The patient has been examined within 24 hours of the surgical procedure. The History & Physical has been completed within 30 days and I have reviewed it.: Yes Section B - Complete if H&P > 30 days Chief Complaint: Phimosis Details of Present Illness: in setting of diabetes Present Medications: see Short Stay Collaborative assessment Medical History: Significant History History of Previous Operations: No relevant previous surgery Allergies: Allergies Allergy/AdvReac Type Severity Reaction Status Date / Time No Known Allergies Allergy Verified 09/05/24 15:15 Review of Systems Sugical H&P ROS: Negative: Constitution, Cardiovascular, Respiratory, Neurological, Psychiatric, Hem-Onc, Allergic/Immunologic, Gastrointestinal, Genitourinary, Musculoskeletal, Integumentary, Endocrine and Eyes/Ears/Nose/Throat Exam Surgical H&P Exam: Normal: HEENT, Normal: Heart, Normal: Lungs, Normal: Extre mities, Normal: Abdomen, Normal: Skin and Normal: Neurological Plan Diagnosis/Plan: Unchanged (circumcision) I have reviewed the history and physical and performed a pertinent physical examination on my patient. No changes have occurred unless specified. Time Spent With Patient Time: Total time managing care of this patient today ____ minutes.
--- NOTE | 2024-12-11 11:05 | P.OP_ITS ---
Operative Note Operative Note Date of Service: 12/11/24 Narrative: PreOperative Diagnosis: Phimosis Post Operative Diagnosis: Phimosis Procedure: Circumcision Surgeon: Dr Tevin Silver Anesthesia: General Indications for procedure: Phimosis in setting of diabetes. Risks and benefits including bleeding, scarring, need for revision surgery been discussed. Procedure: After informed consent was verified the patient was brought to the operating room and placed in a supine position. Anesthesia was administered per protocol. The patient was prepped and draped sterile fashion. Safety pause time-out was performed. Antibiotics have been given. The penis was examined and proximal incision marked that lay just proximal to the resting position of the penile sulcus. This was followed around the circumference of the penis. A penile ring block was performed using 1% lidocaine with no epinephrine. Approximately 8 cc. Foreskin was not able to be retracted. Dorsal slit performed and tight narrowing noted. The proximal incision was developed with sharp blade running circumferentially around the penis. The skin was to give a 1 cm separation between the foreskin and the remaining penile shaft skin. The foreskin was withdrawn and the penile glans exposed. A distal incision was made approximately 5 mm proximal to the penile sulcus. At the area of the frenulum care was taken to keep the penile frenulum intact. Using clamps the dorsal skin was elevated. Using Metzenbaum scissors the avascular plane was entered and proximal and distal incision were joined. The bridging skin was elevated and clamped. It was then divided using Bovie. The sleeve of tissue was then removed circumferentially around the penis using cau harvey in order to minimize bleeding. The shaft was then examined in any bleeding areas were controlled. More local anesthetic was injected into the plane beneath avascular plane to help with postprocedure pain management. The skin edges after they were appropriately examined low reapposed. A 3-0 chromic suture was placed at 12:00 o'clock and 06:00 o'clock positions. Interrupted 3-0 was then placed the 09:00 o'clock and 3 o'clock position. Each quadrant was then filled with 3 sutures using 4-0 chromic. At the completion of the procedure there was adequate hemostasis. The incision was washed and dried. Antibiotic cream was applied to the incision. A Shilo wrap was applied followed by a Coban dressing. Xeroform gauze had been used to cover antibiotic ointment. He tolerated the procedure well and was extubated in the room and transferred in stable condition to the recovery area. Pathology: Foreskin Drains: none
== END 2024-12-11 12:56 | disposition home or self-care (01) ==
PROVIDERS: PCP Physician Assistant; Visit Provider Urology
PROC: (CPT 54161; principal; 2024-12-11 10:00)
DX: N47.1 Phimosis (principal); N48.1 Balanitis; I10 Essential (primary) hypertension; E11.65 Type 2 diabetes mellitus with hyperglycemia; G47.33 Obstructive sleep apnea (adult) (pediatric); F41.9 Anxiety disorder, unspecified; Z79.4 Long term (current) use of insulin; Z79.84 Long term (current) use of oral hypoglycemic drugs; Z79.85 Long-term (current) use of injectable non-insulin antidiabetic drugs; Z87.891 Personal history of nicotine dependence
CPT/HCPCS: 54161; 82947; 88304; J0690; J1100; J2003; J2250; J2405; J2704; J2795; J3010

== ENCOUNTER → 2024-12-11 07:49 | Outpatient (BNV) | payer OTHER, SELFPAY | PROVIDERS: PCP Physician Assistant; Visit Provider Urology | DX: N47.1 Phimosis (principal) | CPT/HCPCS: 54161 ==

== ENCOUNTER 2025-01-11 10:30 | Outpatient (AMB) | payer OTHER, SELFPAY ==
--- NOTE | 2025-01-11 10:43 | A.OFFVIS_ITS ---
Intake Visit Reasons: Circumcision (1 month) follow up Intake Note: Patient is present for CIRCUMCISION 1MO FOLLOW UP Urology Medication:NONE Blood Thinner:NONE Performance Analyst Required: Yes Accompanied by: Spouse Allergies No Known Allergies Allergy (Verified 01/11/25 10:43) HPI Comments Details: Alfredito is a pleasant male. He is a patient of Dr. Díaz. He seen for the following urologic conditions - balanitis French translation provided by partner Circumcision performed Different state recent HbA1c done with endocrinology showed 6.8 On combination Ozempic, insulin, metformin for control Will have him repeat HbA1c at our facility otherwise can schedule for circumcision Six-month follow-up testosterone lab work since diabetic Balanitis Newly diagnosed diabetic HbA1c a diagnosis 03/21 12.2 Dyslipidemia Has cracking around foreskin with balanitis Recommend trial of topical therapy May benefit from circumcision Would only be done if HbA1c had a 8.5 Diet modifications discussed [facility] Medical History (Updated 07/10/24 @ 13:26 by Lee Díaz PA-C) MIRIAM (obstructive sleep apnea) Anxiety HTN (hypertension) Diabetes Trapezius muscle strain Numbness and tingling in left hand Acid reflux Right knee pain Bilateral anterior knee pain Balanitis Hand pain Surgical History No pertinent past surgical history Family History Mother Heart problem Hypertension Father No problems noted. Daughter No problems noted. Daughter No problems noted. Social History (Updated 07/10/24 @ 12:04 by Lee Díaz PA-C) Housing: Apartment Are you a primary wound care nurse to a significant other at home: No Do you presently have visiting nurse or other home services: No Alcohol intake: current Alcohol intake frequency: does not drink Alcohol type: beer Patient Tobacco Use Status: Former Tobacco user Tobacco use type: Cigarette e-Cigarette/Vaping Use: Never Used service: No Current occupational status: employed Current occupation: [employer] Cognitive needs: No Hearing needs: No Vision needs: No Review of Systems Const Denies chills and Denies fever(s) Card Reports no additional complaints and Denies syncope Resp Denies cough GI Denies abdominal pain and Denies heartburn Reports as per HPI and Denies change in libido Neuro Denies syncope Psych Denies change in libido Endo Denies change in libido Physical Exam Const General: cooperative, healthy appearing, comfortable and no acute distress Orientation/consciousness: patient oriented x3 HEENT Face and sinus: Yes normal facial exam Mouth: moist mucous membranes Neck Neck: Yes normal visual inspection, Yes full ROM and Yes trachea midline Chest Chest palpation & inspection: normal inspection of the chest Resp Effort & Inspection: normal respiratory effort, able to speak in complete sentences and no respiratory distress GI Inspection: Yes normal to inspection Back/Spine/Pelvis Cervical Spine: normal cervical lordosis Thoracic/Lumbar Spine: thoracic and lumbar spine normal to inspection Skin General skin exam: no rashes or lesions noted Neuro General: patient oriented x3, gait normal, tone normal and moves all extremities Extrem General: Yes normal to inspection and Yes capillary refill normal Assessment & Plan Assessment & Plan (1) Phimosis of penis: Code(s): N47.1 - Phimosis Category: Medical (2) Diabetes: Code(s): E11.9 - Type 2 diabetes mellitus without complications Category: Medical Qualifiers: Diabetes mellitus type: type 2 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 While every effort has been made to ensure accuracy contact finger assembler errors may have been included. Imaging studies, laboratory and physical exam results were discussed and reviewed in detail. No major barriers to patient understanding were identified. An opportunity to ask questions regarding the treatment plan was provided. All questions were answered. The patient expressed understanding and agreement with the above treatment plan. The patient is aware they should contact our office by phone for worsening of their current condition or the appearance of new urologic symptoms. Compliance is encouraged with any medications and followup testing that is ordered. It is a privilege to participate in the urologic care of your patient. If you have any questions or concerns regarding treatment for the above conditions, or other urologic issues, please do not hesitate to contact me. The office telephone contact is [phone]. 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
--- OUTSIDE RECORDS SUMMARY | 2025-01-11 11:36 | XMS_ITS | Clinical Summary ---
Author Organization [address] [facility] Address [address] [place] [address] Phone Care Team Providers Care Utilization Management Rn Name Role Phone Lee Díaz Primary Care Provider [phone] Allergies No known active allergies Medications glucose sensor,implant-d examet device 1 Each by Other route See Admin Instructions. USE DIRECTED 4 Active atorvastatin (LIPITOR) 20 mg tablet TAKE 1 TABLET BY MOUTH AT BEDTIME 4 Active lisinopriL (PRINIVIL,ZESTRI L) 5 mg tablet Take 1 tablet (5 mg total) by mouth 1 (one) time each day. 3 Active metFORMIN (GLUCOPHAGE) 1,000 mg tablet Take 1 Tablet by mouth 2 times daily (with meals). 4 Active ergocalciferol (VITAMIN D-2) 1,250 mcg (50,000 unit) capsule Take 1 capsule (50,000 Units total) by mouth 1 (one) time per week. 12 each 5 06/07/19 26 Active blood-glucose sensor (FreeStyle Gold 3 Sensor) device Box = Kit = EA, use one sensor every 14 days. 6 each 3 5 Active Ozempic 1 mg/dose (4 mg/3 mL) injection pen INJECT 1 MG INTO THE SKIN ONE TIME PER WEEK 9 mL 1 5 Active insulin glargine-yfgn 100 unit/mL (3 mL) injectionIndicat ions:Class 3 severe obesity with serious comorbidity and body mass index (BMI) of 45.0 to 49.9 in adult, unspecified obesity type (CMS/HCC V24, CMS/HCC V28) INJECT 30-32 UNITS INTO THE SKIN DAILY. 30 mL 1 Active Active Problems Problem Noted Date Diagnosed Date Class 3 severe obesity with serious comorbidity and body mass index (BMI) of 45.0 to 49.9 in adult (CMS/HCC V24, CMS/HCC V28) 11/27/2024 Class 3 severe obesity with serious comorbidity and body mass index (BMI) of 45.0 to 49.9 in adult (CMS/[facility] V24, CMS/[facility] V28) 05/08/2024 Encounters Date Type Department Care Team Description 11/27/2024 1:00 PM EDT Nutrition Bariatric Surgery [address] [id number] Class 3 severe obesity with serious comorbidity and body mass index (BMI) of 45.0 to 49.9 in adult, unspecified obesity type (CMS/[facility] V24, CMS/[facility] V28) (Primary Dx) from Last 3 Months Social [...] 84 07/25/2024 8:11 AM EST Temperature 35.9 C (96.6 F) 07/25/2024 8:11 AM EST Respiratory Rate 15 07/25/2024 8:11 AM EST Oxygen Saturation 96% 07/25/2024 8:11 AM EST Inhaled Oxygen Concentration - - Weight 148 kg (326 lb) 11/27/2024 1:05 PM EDT Height 172.7 cm (5' 8 ) 07/25/2024 8:11 AM EST Body Mass Index 49.57 07/25/2024 8:11 AM EST Plan of Treatment Upcoming Encounters Date Type Department Care Team (Late st Contact Info) Description 02/22/2025 3:00 PM EDT Nutrition Bariatric Surgery [address] [id number] Tammi Sierra, RD [address] [facility] [address] [place] [address] 05/17/2025 4:40 PM EST Office Visit [facility] [address] [place] [address] Priti Gutierrez PA [address] [place] [address] Health Maintenance Due Date Last Done Comments Hepatitis B Vaccines (1 of 3 - 19+ 3-dose series) 1994 Colorectal Cancer Screening: Colonoscopy 06/25/2023 HIV Screening 06/25/2023 Hepatitis C Screening 06/25/2023 Social Influencers of Health Screening 06/25/2023 COVID-19 Vaccine (1 - 2023-2 5 season) 2024 Depression Screening 05/31/2024 Influenza Vaccine (#1) 2025 , 07/07/2023 Cholesterol Screening (Lipid Panel) 05/26/2029 05/26/2024 DTaP,Tdap,and Td Vaccines (2 - Td or Tdap) 01/19/2032 01/18/2022 Pneumococcal Vaccine: Pediatrics (0 to 5 Years) and At-Risk Patients (6 to 49 Years) Completed 07/07/2023 HIB Vaccines Aged Out No longer [...] Procedure Name Priority Date/Time Associated Diagnosis Comments LIPID PANEL WITH REFLEX TO DIRECT LDL Routine 05/26/2024 9:29 AM EST Morbid obesity with BMI of 45.0-49.9, adult ([facility] V24, [facility] V28) from Last 3 Months or Most Recently Relevant to Health Maintenance Results * (ABNORMAL) Lipid panel with reflex to direct LDL (05/26/2024 9:29 AM EST) Cholesterol 184 0 - 200 mg/dL LAB CHEMISTRY METHOD 05/26/2024 2:47 PM EST [facility] Triglycerides 185(H) 0 - 150 mg/dL LAB CHEMISTRY METHOD 05/26/2024 2:47 PM EST [facility] HDL 47 >=40 mg/dL LAB CHEMISTRY METHOD 05/26/2024 2:47 PM EST [facility] LDL Calculated 100 0 - 100 mg/dL LAB CHEMISTRY METHOD 05/26/2024 2:47 PM EST [facility] VLDL Cholesterol Rakesh 37 mg/dL LAB CHEMISTRY METHOD 05/26/2024 2:47 PM EST [facility] Non HDL Chol. (LDL+VLDL) 137 <145 mg/dL LAB CHEMISTRY METHOD 05/26/2024 2:47 PM EST [facility] Chol/HDL Ratio 3.9 0.0 - 4.4 LAB CHEMISTRY METHOD 05/26/2024 2:47 PM EST [facility] Blood Venous blood specimen / Unknown Venipuncture / Unknown 05/26/2024 9:29 AM EST 05/26/2024 9:29 AM EST us Rosemarie Herrera MD LAB BLOOD ORDERABLES Fi nal Result [facility] [address] [place] [address], [place] [phone] from Last 3 Months or Most Recently Relevant to Health Maintenance Insurance [facility] Care Teams Utilization Management Rn Relationship Specialty Start Date End Date Lee Díaz PA [address] [place] [phone] PCP - General Physician Hspt Tutor 07/27/24
== END 2025-01-11 11:15 | disposition home or self-care (01) ==
LOC: HO.HUSH 10:34
PROVIDERS: PCP Physician Assistant; Visit Provider Urology
DX: N47.1 Phimosis (principal); E11.65 Type 2 diabetes mellitus with hyperglycemia
CPT/HCPCS: 99213

== ENCOUNTER → 2025-01-11 10:30 | Outpatient (BNVA) | payer OTHER, SELFPAY | PROVIDERS: PCP Physician Assistant; Visit Provider Urology | DX: N47.1 Phimosis (principal); E11.65 Type 2 diabetes mellitus with hyperglycemia | CPT/HCPCS: 99212 ==

== ENCOUNTER 2025-01-15 09:46 | Outpatient (AMB) | payer OTHER, SELFPAY ==
--- NOTE | 2025-01-15 09:59 | MHC.PC.OV ---
Vital Signs 01/15/25 10:01 Height 5 ft 8 in Weight 325 lb BMI 49.4 BP 130/70 Blood Pressure Location Lt brachial Position Sitting Pulse 91 Pulse Source Pulse Oximeter Temp 97.5 F Temp Source Temporal Artery Scan Pulse Oximetry (%) 98 Oxygen Delivery Method Room Air Intake Visit Reasons: 6 month f/u Intake Note: Patient is here to follow up on DM, HTN, MIRIAM. Speech Pathologist Required: Yes Speech Pathologist Language: Proof Coins Inspector Name: Ramya ([id number]) Information Interpreted: non-clinical & clinical Finisher Cold Rolling: Not Required per policy Accompanied by: Self / Same As Patient Allergies No Known Allergies Allergy (Verified 01/15/25 10:19) Medication List - Last Reconciled 01/15/25 by Lee Díaz PA-C atorvastatin 20 mg PO BEDTIME 90 days Brace,wrist (Wrist Brace - one) Left wrist brace sized to fit docusate sodium 200 mg (2 x 100 mg) PO BEDTIME insulin glargine (Lantus Solostar U-100 Insulin) 36 units subcut QPM lisinopril 5 mg PO DAILY 90 days metformin 1,000 mg PO BID 30 days pen needle, diabetic As directed- daily semaglutide (Ozempic) 1 mg subcut sertraline 50 mg PO DAILY 30 days Tobacco use date assessed: 01/15/25 Dental Screening Dental Screen Date: 01/15/25 Did you have a dental visit in the last 12 months?: Yes Did you have a dental problem in the last 6 months where you did not have access to dental care?: No Was dental information given to patient?: Patient has dentist HPI 6 month f/u HPI Details Patient is a 49-year-old male here today for a follow-up visit. ?Patient has a past medical history significant for type 2 diabetes, morbid obesity, hyperlipidemia, Fatty liver , and obstructive sleep apnea. Concern--> The patient also reports experiencing anxiety and insomnia, with sleep limited to approximately two hours per night. He has been taking sertraline 50 mg but is considering a change in medication due to persistent symptoms. Class 3 obesity: He is now seeing bariatric program at [facility]. Unfortunately has not lost much weight since last office visit. PLAN: Will increase his Ozempic to 2 mg for better glycemic control weight loss. . DMII: Patient continues on long-acting insulin. He has establish care with an shoe designer at [facility]. Unfortunately A1c elevated at 9.4 from 6.9 today. Again will increase his GLP 1 dose for better glycemic control .. Hyperlipidemia: Continues on atorvastatin 20 mg. Has been started on statin therapy and will recheck lipid panel in the next 3 months with goal LDL to be below 100 Laboratory Tests 01/24/22 02/19/22 01/25/23 08:26 14:20 06:10 RBC 5.35 Hgb 15.3 Creatinine Random Glucose 313 H Hemoglobin A1c % 12.2 11.0 H Hgb A1c (Clinic) AST 34 D ALT 63 H 02/26/23 05/07/23 07/07/23 13:44 17:23 11:35 RBC 5.18 Hgb Creatinine 1.20 Random Glucose 616 H* Hemoglobin A1c % Hgb A1c (Clinic) 10.9 H 9.6 H AST ALT 09/05/24 01/15/25 16:18 09:58 RBC Hgb Creatinine Random Glucose Hemoglobin A1c % 6.9 H Hgb A1c (Clinic) 9.4 H AST ALT COUNT INCLUDES THE [facility] Medical History (Updated 07/10/24 @ 13:26 by Lee Díaz PA-C) MIRIAM (obstructive sleep apnea) Anxiety HTN (hypertension) Diabetes Trapezius muscle strain Numbness and tingling in left hand Acid reflux Right knee pain Bilateral anterior knee pain Balanitis Hand pain Surgical History History of circumcision Family History Mother Heart problem Hypertension Father No problems noted. Daughter No problems noted. Daughter No problems noted. Social History Housing: Apartment Are you a primary palliative care nurse practitioner to a significant other at home: No Do you presently have visiting nurse or other home services: No Alcohol intake: current Alcohol intake frequency: does not drink Alcohol type: beer Patient Tobacco Use Status: Former Tobacco user Tobacco use type: Cigarette e-Cigarette/Vaping Use: Never Used Second Hand Smoke Exposure: Yes service: No Current occupational status: employed Current occupation: [employer] Cognitive needs: No Hearing needs: No Vision needs: No Questionnaire Thrive Questionnaire Date Thrive assessed: 07/03/24 I am a: Patient What is your living situation today?: I have a steady place to live Within the past 12 months, did the food you bought not last and you didn't have the money to get more?: Never true Within the past 12 months, did you worry whether your food would run out before you got money to buy more?: Never true Do you have trouble paying for medicines?: No Do you have trouble getting transportation to medical appointments?: No Do you have trouble paying your heating and electricity bill?: No Do you have trouble taking care of your child, family member or friend?: No Do you have trouble with day-to-day activities such as bathing, preparing meals, shopping, managing finances, etc.?: No Are you currently unemployed and looking for a job?: No Are you interested in more education?: No Please select the resources that you would like help with: None Currently or been in a relationship where the following occur: No concerns reported THRIVE Score: 0 OMAR-7 AMB Questionnaire OMAR-7 Date OMAR - 7 assessed: 01/15/25 Feeling nervous, anxious, or on edge: 0 = Not at all Not being able to stop or control worryin = Not at all Worrying too much about different things: 0 = Not at all Trouble relaxin = Not at all Being so restless that it is hard to sit still: 0 = Not at all Becoming easily annoyed or irritable: 0 = Not at all Feeling afraid as if something awful might happen: 0 = Not at all Total OMAR-7 score (0-4 normal; 5-9 mild; 10-14 moderate; 15-21 severe): 0 Source: Developed by Drs. Saúl Galvin, Tyra Gonsalez, Farzad Veronica and colleagues, with an educational julia from [employer]. Review of Systems Const Denies headache(s) Eyes Denies loss of vision ENT Denies vertigo, Denies dizziness, Denies headache(s) and Denies sore throat Card Denies chest pain, Denies leg edema and Denies lightheadedness Resp Denies cough, Denies hemoptysis and Denies wheezing GI Denies abdominal pain, Denies melena, Denies constipation, Denies diarrhea and Denies vomiting Denies dysuria, Denies urinary frequency and Denies urinary urgency Musc Denies arthralgias, Denies joint swelling, Denies numbness and Denies tingling Neuro Denies Abnormal speech present, Denies behavioral changes, Denies vertigo, Denies dizziness, Denies headache(s), Denies loss of vision, Denies memory loss, Denies numbness and Denies tingling Psych Denies anxiety, Denies behavioral changes, Denies depression, Denies memory loss and Denies panic attacks Hugo/Lymph Denies easy bleeding and Denies easy bruising Aller/Immun Denies wheezing Physical exam (Primary Care) Vital Signs: Last Vital Signs Temp 97.5 F 01/15/25 10:01 Pulse 91 01/15/25 10:01 BP 130/70 01/15/25 10:01 Pulse Ox 98 01/15/25 10:01 Oxygen Delivery Method Room Air 01/15/25 10:01 BMI result Body Mass Index 49.4 BMI Assessment/Plan discussion: High BMI High, discussed plan: lifestyle, weight reduction, dietary and physical activity Tobacco/Smoking Status: Tobacco use Status Tobacco use date assessed 01/15/25 01/15/25 10:05 Patient Tobacco Use Status Former Tobacco user 01/15/25 10:05 Tobacco use type Cigarette 01/15/25 10:05 e-Cigarette/Vaping Use Never Used 01/15/25 10:05 Thrive Assessment: Date of Thrive Assessment Date Thrive assessed 07/03/24 01/15/25 10:05 Currently or been in a relationship where the following occur: No concerns reported Const Other: Obese General: healthy appearing, no acute distress, alert and awake Nutritional Appearance: well nourished Orientation/consciousness: oriented to person, oriented to place and oriented to time [facility] Ears: TM's normal bilaterally General nose exam: Normal nasal mucous membranes and turbinates present Eyes Conjunctivae: conjunctivae normal Sclerae: sclerae normal Pupils: Equal, round and reactive pupils present Neck Neck: Yes no lymphadenopathy and Yes no JVD Thyroid: Thyroid normal Carotids: no bruits Resp Effort & Inspection: normal respiratory effort and not tachypneic Auscultation: no crackles, no rales, no rhonchi and no wheezes Cardio Rate: regular rate Rhythm: regular rhythm Heart sounds: no murmurs and normal S1 and S2 GI Palpation (GI): Soft to palpation, nontender, no hepatomegaly and no splenomegaly Auscultation: normal bowel sounds Skin General skin exam: no rashes or lesions noted and dry skin Neuro General: oriented to person, oriented to place and oriented to time Cranial nerves: Yes Equal, round and reactive pupils present Speech: No Abnormal speech present Gait exam (Neuro): Normal gait present Motor exam (neuro): no tremor noted Extrem Right upper extremity: full ROM Left upper extremity: full ROM Right lower extremity: full ROM; no edema Left lower extremity: full ROM; no edema Psych Mental Status: mental status grossly normal Speech and movement: Normal speech and movement present Affect: normal affect Attitude: cooperative Thought process: Normal thought process present Results AMB Hemoglobin A1c AMB Hemoglobin A1c 9.4 % Last Edit by ELMER Vergara on 01/15/25 10:13 Results Reviewed Results Reviewed: Laboratory Last Values Hgb A1c (Clinic) 9.4 % (4.0-6.0) H 01/15/25 09:58 Coding Level of Care Code Est Pt Level 4 (14919) Diagnoses Type 2 diabetes mellitus with hyperglycemia, without long-term current use of insulin E11.65 Diabetes mellitus complication status: with hyperglycemia Diabetes mellitus surgical instrument technician insulin use: without surgical instrument technician use Diabetes mellitus type: type 2 Class 3 obesity E66.813 Primary hypertension I10 Hypertension type: primary hypertension Hypercholesterolemia E78.00 OMAR (generalized anxiety disorder) F41.1 Assessment & Plan Assessment & Plan (1) Diabetes: Code(s): E11.9 - Type 2 diabetes mellitus without complications Category: Medical Qualifiers: Diabetes mellitus complication status: with hyperglycemia Diabetes mellitus surgical instrument technician insulin use: without surgical instrument technician use Diabetes mellitus type: type 2 Qualified Code(s): E11.65 - Type 2 diabetes mellitus with hyperglycemia Plan: Patient followed by shoe designer at [facility]. Unfortunately A1c elevated at 9.4 now. He reports anxiety has been a trigger to his eating.. He continues on maximal dose of metformin and Ozempic 1 mg. Will increase his Ozempic to 2 mg weekly for better glycemic control. Goal A1c is to remain below 7.0 (2) Class 3 obesity: Code(s): E66.813 - Obesity, class 3 Category: Medical Plan: Again patient followed by bariatric surgery at [facility]. He is considering bariatric surgery. (3) HTN (hypertension): Code(s): I10 - Essential (primary) hypertension Category: Medical Qualifiers: Hypertension type: primary hypertension Qualified Code(s): I10 - Essential (primary) hypertension Plan: Patient's blood pressure acceptable today in office. Will continue his current dose of lisinopril with goal blood pressure to remain below 140/90. (4) Hypercholesterolemia: Code(s): E78.00 - Pure hypercholesterolemia, unspecified Category: Medical Plan: Patient continues to work on lifestyle and dietary modifications. Again followed by a bariatric program at [facility]. Continues on atorvastatin 20 mg without side effect. Will continue to follow lipid panel with goal LDL to be below 100 (5) OMAR (generalized anxiety disorder): Code(s): F41.1 - Generalized anxiety disorder Category: Medical Plan: Patient's OMAR-7 score positive for anxiety which has been existing condition for him. Continues on sertraline though does not feel it was helping his anxiety. He is willing to try a new additional mental health medication BuSpar 5 mg b.i.d.. He will also trial hydroxyzine 25 mg before bed to help sleep. Orders: Orders AMB Hemoglobin A1c Today E11.65 - Type 2 diabetes mellitus with hyperglycemia Medications: New buspirone 5 mg PO BID 60 tabs 3RF 30 days F41.1 - Generalized anxiety disorder semaglutide (Ozempic) 2 mg (0.75 mL) subcut QWEEK 3 mL 3RF 4 weeks E11.65 - Type 2 diabetes mellitus with hyperglycemia hydroxyzine HCl 25 mg PO BEDTIME 30 tabs 1RF 30 days F41.1 - Generalized anxiety disorder Refilled metformin 1,000 mg PO BID 60 tabs 3RF 30 days E11.65 - Type 2 diabetes mellitus with hyperglycemia
[2025-01-15 10:01] VITALS: BP 130/70; PULSE 91; TEMP 36.4; O2SAT 98; BMI 49.4
--- OUTSIDE RECORDS SUMMARY | 2025-01-15 10:28 | XMS_ITS | Clinical Summary ---
Author Organization 175 [facility] Address [address] [place] [address] Phone Care Team Providers Care Shotweld Operator Name Role Phone Lee Díaz Primary Care Provider [phone] Allergies No known active allergies Medications glucose [...] (BMI) of 45.0 to 49.9 in adult (CMS/[facility] V24, CMS/[facility] V28) 05/08/2024 Encounters Date Type Department Care Team Description 11/27/2024 1:00 PM EDT Nutrition Bariatric Surgery [address] [address] Class 3 severe obesity with serious comorbidity and body mass index (BMI) of 45.0 to 49.9 in adult, unspecified obesity type (CMS/[facility] V24, CMS/[facility] V28) (Primary Dx) from Last 3 Months [...] 02/22/2025 3:00 PM EDT Nutrition Bariatric Surgery [address] [address] Tammi Sierra, RD 175 [facility] [address] [place] [address] 05/17/2025 4:40 PM EST Office Visit [facility] [address] [place] [address] Priti Gutierrez PA [address] [place] [address] Health Maintenance Due Date Last Done Comments [...] Morbid obesity with BMI of 45.0-49.9, adult ([facility] V24, [facility] V28) from Last 3 Months or Most Recently Relevant to Health Maintenance Results * (ABNORMAL) Lipid panel with reflex to direct LDL (05/26/2024 9:29 AM EST) Cholesterol 184 0 - 200 mg/dL LAB CHEMISTRY METHOD 05/26/2024 2:47 PM EST [facility] Triglycerides 185(H) 0 - 150 mg/dL LAB CHEMISTRY METHOD 05/26/2024 2:47 PM EST [facility] HDL 47 >=40 mg/dL LAB CHEMISTRY METHOD 05/26/2024 2:47 PM EST [facility] LDL Calculated 100 0 - 100 mg/dL LAB CHEMISTRY METHOD 05/26/2024 2:47 PM EST [facility] VLDL Cholesterol Rakesh 37 mg/dL LAB CHEMISTRY METHOD 05/26/2024 2:47 PM EST [facility] Non HDL Chol. (LDL+VLDL) 137 <145 mg/dL LAB CHEMISTRY METHOD 05/26/2024 2:47 PM EST [facility] Chol/HDL Ratio 3.9 0.0 - 4.4 LAB CHEMISTRY METHOD 05/26/2024 2:47 PM EST [facility] Blood Venous blood specimen / Unknown Venipuncture / Unknown 05/26/2024 9:29 AM EST 05/26/2024 9:29 AM EST us Rosemarie Herrera MD LAB BLOOD ORDERABLES Fi nal Result [facility] [address] [place] [address], [place] [phone] from Last 3 Months or Most Recently Relevant to Health Maintenance Insurance [facility] PL[facility] Care Teams Shotweld Operator Relationship Specialty Start Date End Date Lee Díaz PA [address] [place] [phone] PCP - General Physician Manufacturer'S Representative 07/27/24
== END 2025-01-15 10:32 | disposition home or self-care (01) ==
LOC: HO.HMCH 09:47
PROVIDERS: PCP Physician Assistant; Visit Provider Physician Assistant
DX: E11.65 Type 2 diabetes mellitus with hyperglycemia (principal); E66.813 Obesity, class 3; Z68.42 Body mass index [BMI] 45.0-49.9, adult; I10 Essential (primary) hypertension; E78.00 Pure hypercholesterolemia, unspecified; F41.1 Generalized anxiety disorder

== ENCOUNTER → 2025-01-15 09:46 | Outpatient (BNVA) | payer OTHER, SELFPAY | PROVIDERS: PCP Physician Assistant; Visit Provider Physician Assistant | DX: E11.65 Type 2 diabetes mellitus with hyperglycemia (principal); I10 Essential (primary) hypertension; G47.33 Obstructive sleep apnea (adult) (pediatric); E66.813 Obesity, class 3; E78.00 Pure hypercholesterolemia, unspecified; F41.1 Generalized anxiety disorder | CPT/HCPCS: 83036; 99212 ==

== ENCOUNTER 2025-03-26 13:51 | Outpatient (AMB) | payer OTHER, SELFPAY ==
--- NOTE | 2025-03-26 13:57 | MHC.PC.OV ---
Vital Signs 03/26/25 13:58 Height 5 ft 8 in Weight 324 lb 2 oz BMI 49.3 BP 120/60 Blood Pressure Location Lt brachial Position Sitting Pulse 112 H Pulse Source Pulse Oximeter Temp 97.1 F Temp Source Temporal Artery Scan Pulse Oximetry (%) 94 Oxygen Delivery Method Room Air Intake Visit Reasons: 10 weeks f/u anxiety / labs Intake Note: Patient is here to follow up on Anxiety and labs. Lodging Facilities Attendant Required: Yes Lodging Facilities Attendant Language: Vacuum Applicator Operator Name: Andrea (spouse) Information Interpreted: non-clinical & clinical (pt decline roller checker service prefer spous eto translate) Technical Administrator: Present Accompanied by: Spouse Allergies No Known Allergies Allergy (Verified 03/26/25 14:14) Medication List - Last Reconciled 03/26/25 by Lee Díaz PA-C atorvastatin 20 mg PO BEDTIME 90 days Brace,wrist (Wrist Brace - one) Left wrist brace sized to fit buspirone 5 mg PO BID 30 days docusate sodium 200 mg (2 x 100 mg) PO BEDTIME hydroxyzine HCl 25 mg PO BEDTIME 30 days insulin glargine (Lantus Solostar U-100 Insulin) 36 units (0.36 mL) subcut QPM 30 days lisinopril 5 mg PO DAILY 90 days metformin 1,000 mg PO BID 30 days pen needle, diabetic As directed- daily semaglutide (Ozempic) 2 mg (0.75 mL) subcut QWEEK 4 weeks sertraline 50 mg PO DAILY 30 days Tobacco use date assessed: 03/26/25 Dental Screening Dental Screen Date: 01/15/25 HPI 10 weeks f/u anxiety / labs HPI Details Patient is a 49-year-old male here today for a follow-up visit. ?Patient has a past medical history significant for type 2 diabetes, morbid obesity, hyperlipidemia, Fatty liver , and obstructive sleep apnea. Anxiety: The patient also reports experiencing anxiety and insomnia, with sleep limited to approximately two hours per night. He has been taking sertraline 50 mg but is considering a change in medication due to persistent symptoms. We had started BuSpar 5 mg b.i.d. though does not feel it was effective on reducing his anxiety. He is willing to increase his dose of BuSpar to 15 mg b.i.d.. Class 3 obesity: At last visit we increased his Ozempic to 2 mg weekly though unfortunately has not lost much weight. . DMII: Patient continues on long-acting insulin. Unfortunately has not been able to get Ozempic for quite some time due to insurance coverage. He is interested in changing his GLP 1 therapy to an alternative. .. Hyperlipidemia: Continues on atorvastatin 20 mg. Has been started on statin therapy and will recheck lipid panel in the next 3 months with goal LDL to be below 100. Laboratory Tests 07/07/23 09/05/24 01/15/25 11:35 16:18 09:58 Hgb A1c (Clinic) 9.6 H 9.4 H Hemoglobin A1c % 6.9 H [facility] Medical History (Updated 07/10/24 @ 13:26 by Lee Díaz PA-C) MIRIAM (obstructive sleep apnea) Anxiety HTN (hypertension) Diabetes Trapezius muscle strain Numbness and tingling in left hand Acid reflux Right knee pain Bilateral anterior knee pain Balanitis Hand pain Surgical History History of circumcision Family History Mother Heart problem Hypertension Father No problems noted. Daughter No problems noted. Daughter No problems noted. Social History Housing: Apartment Are you a primary professional healthcare representative to a significant other at home: No Do you presently have visiting nurse or other home services: No Alcohol intake: current Alcohol intake frequency: does not drink Alcohol type: beer Patient Tobacco Use Status: Former Tobacco user Tobacco use type: Cigarette e-Cigarette/Vaping Use: Never Used Second Hand Smoke Exposure: Yes service: No Current occupational status: employed Current occupation: [employer] Cognitive needs: No Hearing needs: No Vision needs: No Questionnaire Thrive Questionnaire Date Thrive assessed: 07/03/24 I am a: Patient What is your living situation today?: I have a steady place to live Within the past 12 months, did the food you bought not last and you didn't have the money to get more?: Never true Within the past 12 months, did you worry whether your food would run out before you got money to buy more?: Never true Do you have trouble paying for medicines?: No Do you have trouble getting transportation to medical appointments?: No Do you have trouble paying your heating and electricity bill?: No Do you have trouble taking care of your child, family member or friend?: No Do you have trouble with day-to-day activities such as bathing, preparing meals, shopping, managing finances, etc.?: No Are you currently unemployed and looking for a job?: No Are you interested in more education?: No Please select the resources that you would like help with: None Currently or been in a relationship where the following occur: No concerns reported THRIVE Score: 0 OMAR-7 AMB Questionnaire OMAR-7 Date OMAR - 7 assessed: 03/26/25 Feeling nervous, anxious, or on edge: 2 = More than half the days Not being able to stop or control worryin = Not at all Worrying too much about different things: 0 = Not at all Trouble relaxin = More than half the days Being so restless that it is hard to sit still: 2 = More than half the days Becoming easily annoyed or irritable: 3 = Nearly every day Feeling afraid as if something awful might happen: 1 = Several days Total OMAR-7 score (0-4 normal; 5-9 mild; 10-14 moderate; 15-21 severe): 10 Source: Developed by Drs. Saúl Galvin, Tyra Gonsalez, Farzad Veronica and colleagues, with an educational julia from [employer]. Review of Systems Const Denies headache(s) Eyes Denies loss of vision ENT Denies vertigo, Denies dizziness, Denies headache(s) and Denies sore throat Card Denies chest pain, Denies leg edema and Denies lightheadedness Resp Denies cough, Denies hemoptysis and Denies wheezing GI Denies abdominal pain, Denies melena, Denies constipation, Denies diarrhea and Denies vomiting Denies dysuria, Denies urinary frequency and Denies urinary urgency Musc Denies arthralgias, Denies joint swelling, Denies numbness and Denies tingling Neuro Denies Abnormal speech present, Denies behavioral changes, Denies vertigo, Denies dizziness, Denies headache(s), Denies loss of vision, Denies memory loss, Denies numbness and Denies tingling Psych Denies anxiety, Denies behavioral changes, Denies depression, Denies memory loss and Denies panic attacks Hugo/Lymph Denies easy bleeding and Denies easy bruising Aller/Immun Denies wheezing Physical exam (Primary Care) Vital Signs: Last Vital Signs Temp 97.1 F 03/26/25 13:58 Pulse 112 H 03/26/25 13:58 BP 120/60 03/26/25 13:58 Pulse Ox 94 03/26/25 13:58 Oxygen Delivery Method Room Air 03/26/25 13:58 BMI result Body Mass Index 49.3 BMI Assessment/Plan discussion: High BMI High, discussed plan: lifestyle, weight reduction, dietary and physical activity Tobacco/Smoking Status: Tobacco use Status Tobacco use date assessed 03/26/25 03/26/25 14:06 Patient Tobacco Use Status Former Tobacco user 03/26/25 14:06 Tobacco use type Cigarette 03/26/25 14:06 e-Cigarette/Vaping Use Never Used 03/26/25 14:06 Thrive Assessment: Date of Thrive Assessment Date Thrive assessed 07/03/24 03/26/25 14:06 Currently or been in a relationship where the following occur: No concerns reported Const General: healthy appearing, no acute distress, alert and awake Nutritional Appearance: well nourished Orientation/consciousness: oriented to person, oriented to place and oriented to time HENMT Ears: TM's normal bilaterally General nose exam: Normal nasal mucous membranes and turbinates present Eyes Conjunctivae: conjunctivae normal Sclerae: sclerae normal Pupils: Equal, round and reactive pupils present Neck Neck: Yes no lymphadenopathy and Yes no JVD Thyroid: Thyroid normal Carotids: no bruits Resp Effort & Inspection: normal respiratory effort and not tachypneic Auscultation: no crackles, no rales, no rhonchi and no wheezes Cardio Rate: regular rate Rhythm: regular rhythm Heart sounds: no murmurs and normal S1 and S2 GI Palpation (GI): Soft to palpation, nontender, no hepatomegaly and no splenomegaly Auscultation: normal bowel sounds Skin General skin exam: no rashes or lesions noted and dry skin Neuro General: oriented to person, oriented to place and oriented to time Cranial nerves: Yes Equal, round and reactive pupils present Speech: No Abnormal speech present Gait exam (Neuro): Normal gait present Motor exam (neuro): no tremor noted Extrem Right upper extremity: full ROM Left upper extremity: full ROM Right lower extremity: full ROM; no edema Left lower extremity: full ROM; no edema Psych Mental Status: mental status grossly normal Speech and movement: Normal speech and movement present Affect: normal affect Attitude: cooperative Thought process: Normal thought process present Office Procedures Flu Questionnaire Does the patient have a severe egg allergy?: No Does the patient have severe life threatening allergies?: No Does the patient have a fever or illness today?: No Has the patient ever had Guillain-[place] Syndrome?: No Has the patient ever had any past reaction to a flu shot?: No Immunizations Fluarix [id number] (PF) 45 mcg (15 mcg x 3)/0.5 mL IM syringe Performing Provider: Lee Díaz PA-C [facility] Administered by: Elise Olmos RN on 03/26/25 14:40 Dose Route Admin Location Dispensed Lot Number Expiration Date [facility] Paedodontist 0.5 mL IM Left Deltoid 0.5 mL [id number] 11/27/25 [id number] [employer] VIS Given Date VIS Provided VIS Publication Date 03/26/25 Single Vaccine 24 Eligibility Eligibility Date Funding Source Not [facility] Eligible 03/26/25 Private Coding Level of Care Code Est Pt Level 4 (33279) Diagnoses Type 2 diabetes mellitus with hyperglycemia, without long-term current use of insulin E11.65 Diabetes mellitus complication status: with hyperglycemia Diabetes mellitus terminal worker insulin use: without alf use Diabetes mellitus type: type 2 Class 3 obesity E66.813 Primary hypertension I10 Hypertension type: primary hypertension Hypercholesterolemia E78.00 OMAR (generalized anxiety disorder) F41.1 Assessment & Plan Assessment & Plan (1) Diabetes: Code(s): E11.9 - Type 2 diabetes mellitus without complications Category: Medical Qualifiers: Diabetes mellitus complication status: with hyperglycemia Diabetes mellitus alf insulin use: without terminal worker use Diabetes mellitus type: type 2 Qualified Code(s): E11.65 - Type 2 diabetes mellitus with hyperglycemia Plan: Patient followed by audiovisual technician at [facility]. Most recent A1c at 9.4. He reports anxiety has been a trigger to his eating.. Unfortunately his Ozempic was not covered by insurance. He is willing to try an alternative GLP 1 to help reduce weight and gained some glycemic control. Goal A1c is to remain below 7.0 (2) Class 3 obesity: Code(s): E66.813 - Obesity, class 3 Category: Medical Plan: Again patient followed by bariatric surgery at [facility]. He is considering bariatric surgery. (3) HTN (hypertension): Code(s): I10 - Essential (primary) hypertension Category: Medical Qualifiers: Hypertension type: primary hypertension Qualified Code(s): I10 - Essential (primary) hypertension Plan: Patient's blood pressure acceptable today in office. Will continue his current dose of lisinopril with goal blood pressure to remain below 140/90. (4) Hypercholesterolemia: Code(s): E78.00 - Pure hypercholesterolemia, unspecified Category: Medical Plan: Patient continues to work on lifestyle and dietary modifications. Again followed by a bariatric program at [facility]. Continues on atorvastatin 20 mg without side effect. Will continue to follow lipid panel with goal LDL to be below 100 (5) OMAR (generalized anxiety disorder): Code(s): F41.1 - Generalized anxiety disorder Category: Medical Plan: Patient's OMAR-7 score positive for anxiety which has been existing condition for him. Continues on sertraline though does not feel it was helping his anxiety. Will increase his BuSpar to 15 mg b.i.d. for better control of his anxiety . Orders: Orders Influenza [id number] Immunization 03/26/25 Z23 - Encounter for immunization Medications: New buspirone 15 mg PO BID 60 tabs 3RF 30 days F41.1 - Generalized anxiety disorder tirzepatide (Mounjaro) 5 mg (0.5 mL) subcut QWEEK 2 mL 2RF 4 weeks E11.65 - Type 2 diabetes mellitus with hyperglycemia, G47.33 - Obstructive sleep apnea (adult) (pediatric) Changed From docusate sodium 200 mg (2 x 100 mg) PO BEDTIME 60 caps 0RF K59.09 - Other constipation To docusate sodium 200 mg (2 x 100 mg) PO BEDTIME 60 caps 4RF 30 days K59.09 - Other constipation Refilled sertraline 50 mg PO DAILY 30 tabs 6RF 30 days F41.1 - Generalized anxiety disorder pen needle, diabetic As directed- daily 50 ea 3RF E11.65 - Type 2 diabetes mellitus with hyperglycemia insulin glargine (Lantus Solostar U-100 Insulin) 36 units (0.36 mL) subcut QPM 15 mL 5RF 30 days E11.65 - Type 2 diabetes mellitus with hyperglycemia Discontinued buspirone Discontinued Reason: Doctor's Order 5 mg PO BID 30 days 60 tabs 3RF F41.1 - Generalized anxiety disorder On Hold semaglutide (Ozempic) Hold Comment: Doctor's Order 2 mg (0.75 mL) subcut QWEEK 4 weeks 3 mL 3RF E11.65 - Type 2 diabetes mellitus with hyperglycemia
[2025-03-26 13:58] VITALS: BP 120/60; PULSE 112; TEMP 36.2; O2SAT 94; BMI 49.3
--- OUTSIDE RECORDS SUMMARY | 2025-03-26 17:30 | XMS_ITS | Clinical Summary ---
Author Organization 175 [facility] Address [address] [place] [address] Phone Care Team Providers Care Wad Impregnator Name Role Phone Lee Díaz Primary Care Provider [phone] Allergies No known active allergies Medications glucose [...] (BMI) of 45.0 to 49.9 in adult ([facility] V24, [facility] V28) 11/27/2024 Class 3 severe obesity with serious comorbidity and body mass index (BMI) of 45.0 to 49.9 in adult ([facility] V[facility], [facility] V28) 05/08/2024 Social History Tobacco Use Types Packs/Day Years [...] Care Team (Late st Contact Info) Description 05/17/2025 4:40 PM EST Office Visit Endocrinology - [place] [address] [place] [address] Priti Gutierrez PA [address] [place] [address] Health Maintenance Due Date Last Done Comments Colorectal Cancer Screening: Colonoscopy 1975 Hepatitis B Vaccines (1 of 3 - 19+ 3-dose series) 1994 HIV Screening 06/25/2023 Hepatitis C Screening 06/25/2023 Social Influencers of Health Screening 06/25/2023 Depression Screening 05/31/2024 COVID-19 Vaccine (1 - 2023-2 5 season) 2025 Influenza Vaccine (#1) 2025 5, 07/07/2023 Cholesterol Screening (Lipid Panel) 05/26/2029 05/26/2024 DTaP,Tdap,and Td Vaccines (2 - Td or Tdap) 01/19/2032 01/18/2022 RSV Immunization Adult Patients (1 - 1-dose 75+ series) 2050 Pneumococcal Vaccine: Pediatrics (0 to 5 Years) [...] Morbid obesity with BMI of 45.0-49.9, adult (CMS/HCC V24, CMS/HCC V28) from Last 3 Months or Most Recently Relevant to Health Maintenance Results * (ABNORMAL) Lipid panel with reflex to direct LDL (05/26/2024 9:29 AM EST) Cholesterol 184 0 - 200 mg/dL LAB CHEMISTRY METHOD 05/26/2024 2:47 PM EST [facility] Triglycerides 185(H) 0 - 150 mg/dL LAB CHEMISTRY METHOD 05/26/2024 2:47 PM [facility] HDL 47 >=40 mg/dL LAB CHEMISTRY METHOD 05/26/2024 2:47 PM [facility] LDL Calculated 100 0 - 100 mg/dL LAB CHEMISTRY METHOD 05/26/2024 2:47 PM [facility] VLDL Cholesterol Rakesh 37 mg/dL LAB CHEMISTRY METHOD 05/26/2024 2:47 PM [facility] Non HDL Chol. (LDL+VLDL) 137 <145 mg/dL LAB CHEMISTRY METHOD 05/26/2024 2:47 PM [facility] Chol/HDL Ratio 3.9 0.0 - 4.4 LAB CHEMISTRY METHOD 05/26/2024 2:47 PM [facility] Blood Venous blood specimen / Unknown Venipuncture / Unknown 05/26/2024 9:29 AM EST 05/26/2024 9:29 AM EST us Rosemarie Herrera MD LAB BLOOD ORDERABLES Fi nal Result [facility] [address] [place] [address], from Last 3 Months or Most Recently Relevant to Health Maintenance Insurance [facility] PLAN Care Teams Wad Impregnator Relationship Specialty Start Date End Date Lee Díaz PA [address] [place] [address] PCP - General Physician Supervisor Electronic Testing 07/27/24
== END 2025-03-26 14:45 | disposition home or self-care (01) ==
LOC: HO.HMCH 13:52
PROVIDERS: PCP Physician Assistant; Visit Provider Physician Assistant
DX: Z23 Encounter for immunization (principal)

== ENCOUNTER → 2025-03-26 13:51 | Outpatient (BNVA) | payer OTHER, SELFPAY | PROVIDERS: PCP Physician Assistant; Visit Provider Physician Assistant | DX: E11.65 Type 2 diabetes mellitus with hyperglycemia (principal); E66.813 Obesity, class 3; E66.01 Morbid (severe) obesity due to excess calories; I10 Essential (primary) hypertension; E78.5 Hyperlipidemia, unspecified; K76.0 Fatty (change of) liver, not elsewhere classified; G47.33 Obstructive sleep apnea (adult) (pediatric); F41.9 Anxiety disorder, unspecified; E78.00 Pure hypercholesterolemia, unspecified; F41.1 Generalized anxiety disorder; K59.09 Other constipation; Z23 Encounter for immunization | CPT/HCPCS: 90471; 90656; 99212 ==

== ENCOUNTER 2025-05-25 09:43 | Outpatient (REF) | payer OTHER, SELFPAY ==
--- OUTSIDE RECORDS SUMMARY | 2025-05-25 09:46 | XMS_ITS | Clinical Summary ---
Author Organization [address] [facility] Address [address] [place] [address] Phone Care Team Providers Care Manufacturing Process Engineer Name Role Phone Lee Díaz Primary Care Provider [phone] Allergies No known active allergies Medications glucose [...] (BMI) of 45.0 to 49.9 in adult 11/27/2024 Class 3 severe obesity with serious comorbidity and body mass index (BMI) of 45.0 to 49.9 in adult 05/08/2024 Social History Tobacco Use Types Packs/Day Years Used Date Smoking Tobacco: Never Smokeless Tobacco: Never Tobacco Cessation:Counseling Given: Not Answered Sex and Gender Information Value Date Recorded Sex Assigned at Not on file Legal Sex Male 8:58 PM EST Gender Identity Not on file Sexual Orientation Not on file Last Filed Vital Signs Vital Sign Reading [...] Care Team (Late st Contact Info) Description 08/06/2025 8:00 AM EDT Office Visit Endocrinology - [place] [address] [place] [address] Priti Gutierrez PA [address] [place] [address] Health Maintenance Due Date Last Done Comments Colorectal Cancer Screening: Colonoscopy 1975 Hepatitis B Vaccines (1 of 3 - 19+ 3-dose series) 1994 HIV Screening 06/25/2023 Hepatitis C Screening 06/25/2023 Social Influencers of Health Screening 06/25/2023 Depression Screening 05/31/2024 COVID-19 Vaccine ( - 2024-2 6 season) 2025 Influenza Vaccine (#1) 2025 , 07/07/2023 RSV Immunization Adult Patients (1 - Risk 50-74 years 1-dose series) 2025 Zoster Vaccines (1 of 2) 2025 Cholesterol Screening (Lipid Panel) 05/26/2029 05/26/2024 DTaP,Tdap,and Td Vaccines (2 - Td or Tdap) 01/19/2032 01/18/2022 Pneumococcal Vaccine: 50+ Years Completed 07/07/2023 HIB Vaccines Aged Out No [...] Morbid obesity with BMI of 45.0-49.9, adult (CMS/[facility] V24, CMS/[facility] V28) from Last 3 Months or Most Recently Relevant to Health Maintenance Results * (ABNORMAL) Lipid panel with reflex to direct LDL (05/26/2024 9:29 AM EST) Cholesterol 184 0 - 200 mg/dL LAB CHEMISTRY METHOD 05/26/2024 2:47 PM EST [facility] Triglycerides 185(H) 0 - 150 mg/dL LAB CHEMISTRY METHOD 05/26/2024 2:47 PM EST [facility] HDL 47 >=40 mg/dL LAB CHEMISTRY METHOD 05/26/2024 2:47 PM EST [facility] LDL Calculated 100 0 - 100 mg/dL LAB CHEMISTRY METHOD 05/26/2024 2:47 PM [facility] VLDL Cholesterol Rakesh 37 mg/dL LAB CHEMISTRY METHOD 05/26/2024 2:47 PM EST [facility] Non HDL Chol. (LDL+VLDL) 137 <145 mg/dL LAB CHEMISTRY METHOD 05/26/2024 2:47 PM [facility] Chol/HDL Ratio 3.9 0.0 - 4.4 LAB CHEMISTRY METHOD 05/26/2024 2:47 PM [facility] Blood Venous blood specimen / Unknown Venipuncture / Unknown 05/26/2024 9:29 AM EST 05/26/2024 9:29 AM EST Rosemarie Herrera MD LAB BLOOD ORDERABLES nal Result [facility] [address] [place] [address], from Last 3 Months or Most Recently Relevant to Health Maintenance Insurance [facility] [employer] Care Teams Manufacturing Process Engineer Relationship Specialty Start Date End Date Lee Díaz PA [address] [place] [phone] PCP - General Physician Charge Histotechnologist 07/27/24
[2025-05-25 10:34] LABS: Hematocrit 44.9 % (42.0-52.0); Hemoglobin 14.3 g/dl (14.0-18.0); Mean Corpuscular HGB Conc 31.8 g/dl (31.0-36.0); Mean Corpuscular Hemoglobin 28.1 pg (27.0-33.0); Mean Corpuscular Volume 88.2 fL (80.0-98.0); NRBC Abs Auto 0.000 X10*3/uL (0.0-0.012); NRBC Pct Auto 0.0 /100WBC (0.0-0.2); Platelet Count 260 X10*3/uL (160-400); Red Blood Count 5.09 X10*6/uL (4.60-5.80); White Blood Count 8.3 X10*3/uL (4.8-10.8)
[2025-05-25 10:49] LABS: Alanine Aminotransferase 68 U/L (0-40); Albumin Level 4.3 g/dL (3.5-5.0); Alkaline Phosphatase 93 U/L (39-117); Anion Gap 11 (12-20); Aspartate Amino Transferase 36 U/L (5-37); Blood Urea Nitrogen 21 mg/dL (9-16); Calcium 9.2 mg/dL (8.4-10.2); Carbon Dioxide 25 mmol/L (22-29); Chloride 106 mmol/L (96-108); Cholesterol 269 mg/dL (<200); Estimated Glomerular Filt Rate > 60; HDL Cholesterol 40 mg/dL (>40); Potassium 4.2 mmol/L (3.3-5.1); Sodium 138 mmol/L (135-145); Total Protein 7.0 g/dL (6.5-8.0); Triglycerides 353 mg/dL (<150)
== END 2025-05-25 09:44 | disposition home or self-care (01) ==
LOC: HO.LAB 09:43
PROVIDERS: PCP Physician Assistant; Visit Provider Physician Assistant
DX: Z12.5 Encounter for screening for malignant neoplasm of prostate (principal); E11.65 Type 2 diabetes mellitus with hyperglycemia; I10 Essential (primary) hypertension; E78.00 Pure hypercholesterolemia, unspecified
CPT/HCPCS: 36415; 80053; 80061; 82570; 83036; 84153; 85027